=== PATIENT | male | born 1975 | race Caucasian/White ===

== ENCOUNTER 2020-03-17 14:09 | Emergency (ER) | payer MEDICAID ==
[2020-03-17] MEDS ORDERED: Aspirin 81 MG Tab.Chew PO ONE (14:27)
[2020-03-17] MEDS ORDERED: Sodium Chloride 0.9% 10 ML Syringe FLUSH PRN (14:27)
--- NOTE | 2020-03-17 14:31 | EDM.PDOC ---
ED HPI GENERAL MEDICAL PROBLEM - General Chief Complaint: Chest Pain Stated Complaint: HEART PAIN Time Seen by Provider: 03/17/20 14:23 Source of Information: Reports: Patient, Family, RN Notes Reviewed History Limitations: Reports: No Limitations - History of Present Illness INITIAL COMMENTS - FREE TEXT/NARRATIVE: 45-year-old gentleman presents emergency department a complaint of chest pain, states chest pain started about 6 hours prior he does have a cardiac history history of congestive heart failure with reduced ejection fraction thought to be related to IV drug use. He has never had any stenting he rates this pain 3 or 4 out of 10 does feel short of breath has been diaphoretic at times pain does radiate down his arm no nausea or vomiting. Chest Pain Score (Numeric/FACES): 3 - Related Data Allergies Allergy/AdvReac Type Severity Reaction Status Date / Time acetaminophen [From Vicodin] Allergy Rash Verified 03/17/20 14:20 hydrocodone [From Vicodin] Allergy Rash Verified 03/17/20 14:20 Home Meds: Home Meds Furosemide [Lasix] 20 mg PO DAILY 03/17/20 [History] Rosuvastatin [Crestor] 20 mg PO DAILY 03/17/20 [History] Spironolactone [Aldactone] 25 mg PO DAILY 03/17/20 [History] levoFLOXacin [Levaquin] 750 mg PO DAILY 03/17/20 [History] Past Medical History Cardiovascular History: Reports: Heart Failure, High Cholesterol, Hypertension - Infectious Disease History Infectious Disease History: Reports: Other (See Below) (Chronic wound left leg) Social & Family History - Recreational Drug Use Recreational Drug Use: No Recreational Drug Type: Reports: Other (see below) (Remote history of IV drug use complications of CHF) ED ROS GENERAL - Review of Systems Review Of Systems: See Below Constitutional: Reports: Diaphoresis HEENT: Reports: No Symptoms Respiratory: Reports: Shortness of Breath Cardiovascular: Reports: Chest Pain GI/Abdominal: Denies: Nausea, Vomiting ED EXAM, GENERAL - Physical Exam Exam: See Below Exam Limited By: No Limitations General Appearance: Alert, Mild Distress Head: Atraumatic, Normocephalic Neck: Normal Inspection, Supple, Non-Tender, Full Range of Motion Respiratory/Chest: No Respiratory Distress Cardiovascular: Regular Rate, Rhythm, No Murmur GI/Abdominal: Soft, Non-Tender Extremities: Normal Range of Motion, No Pedal Edema #1 Interpretation EKG Date: 03/17/20 Rhythm: NSR [place]: Normal P-Wave: Present QRS: Normal ST-T: Normal QT: Normal Comparison: NA - No Prior EKG Course - Vital Signs Last Recorded V/S: Last Vital Signs Temp 97.5 F 03/17/20 14:16 Pulse 89 03/17/20 15:17 Resp 11 L 03/17/20 15:17 BP 144/98 H 03/17/20 15:17 Pulse Ox 95 03/17/20 15:17 - Orders/Labs/Meds Orders: Active Orders 24 hr Category Date Time Status Cardiac Monitoring [RC] .As Directed Care 03/17/20 14:27 Active EKG Documentation Completion [RC] ASDIRECTED Care 03/17/20 14:28 Active Peripheral IV Care [RC] . DIRECTED Care 03/17/20 14:28 Active Nitroglycerin [Nitrostat] Med 03/17/20 14:27 Active 0.4 mg SL Q5M PRN Sodium Chloride 0.9% [Saline Flush] Med 03/17/20 14:27 Active 10 ml FLUSH ASDIRECTED PRN Peripheral IV Insertion Adult [OM.PC] Stat Oth 03/17/20 14:27 Ordered Saline Lock Insert [OM.PC] Stat Oth 03/17/20 14:27 Ordered EKG 12 Lead [EK] Stat Ther 03/17/20 14:27 Ordered Medication Orders Nitroglycerin (Nitrostat) 0.4 mg SL Q5M PRN PRN Reason: Chest Pain Stop: 03/18/20 14:28 Last Admin: 03/17/20 14:53 Dose: 0.4 mg Documented by: [id number] Admin: 03/17/20 14:36 Dose: 0.4 mg Documented by: [email or web address] Sodium Chloride (Saline Flush) 10 ml FLUSH ASDIRECTED PRN PRN Reason: Keep Vein Open Last Admin: 03/17/20 14:32 Dose: 10 ml Documented by: [id number] Labs: Laboratory Tests 03/17/20 03/17/20 03/17/20 Range/Units 14:35 14:35 16:30 WBC 9.9 (4.5-11.0) K/uL RBC 4.64 (4.30-5.90) M/uL Hgb 12.8 (12.0-15.0) g/dL Hct 38.2 L (40.0-54.0) % MCV 82 (80-98) fL MCH 28 (27-31) pg MCHC 34 (32-36) % Plt Count 216 (150-400) K/uL Neut % (Auto) 64 (36-66) % Lymph % (Auto) 22 L (24-44) % Harvey % (Auto) 11 H (2-6) % Eos % (Auto) 3 (2-4) % Baso % (Auto) 1 (0-1) % Sodium 139 L (140-148) mmol/L Potassium 3.8 (3.6-5.2) mmol/L Chloride 103 (100-108) mmol/L Carbon Dioxide 27 (21-32) mmol/L Anion Gap 12.8 (5.0-14.0) mmol/L BUN 21 H (7-18) mg/dL Creatinine 1.4 H (0.8-1.3) mg/dL Est Cr Clr Drug Dosing 63.61 mL/min Estimated GFR (MDRD) 55 L (>60) Glucose 194 H (74-106) mg/dL Calcium 9.0 (8.5-10.1) mg/dL Total Bilirubin 0.6 (0.2-1.0) mg/dL AST 17 (15-37) U/L ALT 30 (12-78) U/L Alkaline Phosphatase 104 (46-116) U/L Troponin I 0.027 0.028 (0.000-0.056) ng/mL Total Protein 6.6 (6.4-8.2) g/dL Albumin 3.5 (3.4-5.0) g/dL Globulin 3.1 (2.3-3.5) g/dL Albumin/Globulin Ratio 1.1 L (1.2-2.2) Meds: Medications Generic Name Dose Route Start Last Admin Trade Name Freq PRN Reason Stop Dose Admin Nitroglycerin 0.4 mg 03/17/20 14:27 03/17/20 14:53 Nitrostat SL 03/18/20 14:28 0.4 mg Q5M PRN Administration Chest Pain Sodium Chloride 10 ml 03/17/20 14:27 03/17/20 14:32 Saline Flush FLUSH 10 ml ASDIRECTED PRN Administration Keep Vein Open Discontinued Medications Generic Name Dose Route Start Last Admin Trade Name Freq PRN Reason Stop Dose Admin Aspirin 324 mg 03/17/20 14:27 03/17/20 14:34 Aspirin PO 03/17/20 14:28 324 mg ONETIME ONE Administration Departure - Departure Time of Disposition: 17:09 Disposition: Home, Self-Care 01 Condition: Fair Clinical Impression: Chest pain Qualifiers: Chest pain type: unspecified Qualified Code(s): R07.9 - Chest pain, unspecified Instructions: Nonspecific Chest Pain, Adult Referrals: PCP,None [Primary Care Provider] - Forms: ED Department Discharge Additional Instructions: Outpatient surgery center will call you for an appointment time for your stress test, please follow-up with your primary care after your stress test call return to the emergency department worsening of symptoms Sepsis Event Note (ED) - Evaluation Sepsis Screening Result: No Definite Risk - Focused Exam Vital Signs: Vital Signs Temp Pulse Resp BP BP Pulse Ox 03/17/20 15:17 89 11 L 144/98 H 95 03/17/20 15:05 88 142/92 H 03/17/20 14:53 156/99 H 03/17/20 14:36 175/111 H 03/17/20 14:34 89 17 175/111 H 95 03/17/20 14:16 97.5 F 86 16 190/115 H 99 - My Orders Last 24 Hours: My Active Orders 03/17/20 14:27 Cardiac Monitoring [RC] .As Directed Nitroglycerin [Nitrostat] 0.4 mg SL Q5M PRN Sodium Chloride 0.9% [Saline Flush] 10 ml FLUSH ASDIRECTED PRN Peripheral IV Insertion Adult [OM.PC] Stat Saline Lock Insert [OM.PC] Stat EKG 12 Lead [EK] Stat 03/17/20 14:28 EKG Documentation Completion [RC] ASDIRECTED Peripheral IV Care [RC] . DIRECTED - Assessment/Plan Last 24 Hours: My Active Orders 03/17/20 14:27 Cardiac Monitoring [RC] .As Directed Nitroglycerin [Nitrostat] 0.4 mg SL Q5M PRN Sodium Chloride 0.9% [Saline Flush] 10 ml FLUSH ASDIRECTED PRN Peripheral IV Insertion Adult [OM.PC] Stat Saline Lock Insert [OM.PC] Stat EKG 12 Lead [EK] Stat 03/17/20 14:28 EKG Documentation Completion [RC] ASDIRECTED Peripheral IV Care [RC] . DIRECTED Plan: Assessment Acuity = acute Site and laterality = chest pain Etiology = unknown Manifestations = none Location of injury = Home Lab values = CBC unremarkable creatinine elevated 1.4 consistent chronic renal failure stage T3a troponin 0 0.027 and 2 hours later 0.0284 troponin is within the normal range EKG demonstrates sinus rhythm no ST elevations or depressions,, Chest x-ray reveals mild cardiomegaly per radiology Plan I did review lab EKG results with him plan is to set him up for stress test we will try and get that done this is this week he will follow-up with his primary care provider he did receive 2 doses of nitro in the emergency department where he remained pain-free as well as aspirin return to the emergency department with worsening of symptoms This note was dictated using [employer] voice recognition software please call with any questions on syntax or grammar.
[2020-03-17] MEDS: Nitroglycerin 0.4 MG Tab.SL SL PRN ×2 (14:36→14:53)
--- NOTE | 2020-03-17 15:18 | CR ---
CHEST: Portable 03/17/2020 at 2:46 PM CLINICAL HISTORY:Chest pain COMPARISON:2011 FINDINGS: The heart size is mildly enlarged. The pulmonary vascularity and hilar structures are normal. No infiltrate effusion or pneumothorax is seen. IMPRESSION: Mild cardiomegaly No acute cardiopulmonary process.
== END 2020-03-17 17:37 | disposition home or self-care (01) ==
LOC: JP.ED 14:09
DX: R07.9 Chest pain, unspecified (principal); E78.00 Pure hypercholesterolemia, unspecified; I11.0 Hypertensive heart disease with heart failure; I50.9 Heart failure, unspecified; Z88.6 Allergy status to analgesic agent; Z88.5 Allergy status to narcotic agent; Z79.899 Other long term (current) drug therapy
CPT/HCPCS: 36415; 71045; 80053; 84484; 85025; 93005; 99284; 99285; A9270

== ENCOUNTER 2020-04-06 03:08 | Emergency (ER) | payer MEDICAID ==
[2020-04-06] MEDS ORDERED: Bacitracin Oint 1 GM U/D Packet TOP ONE (03:16)
--- NOTE | 2020-04-06 03:30 | EDM.PDOC ---
ED HPI GENERAL MEDICAL PROBLEM - General Chief Complaint: Laceration Stated Complaint: CUT LEFT LEG Time Seen by Provider: 04/06/20 03:15 Source of Information: Reports: Patient History Limitations: Reports: No Limitations - History of Present Illness INITIAL COMMENTS - FREE TEXT/NARRATIVE: Mello is a 45-year-old male who was in his usual state of health when he was trying to adjust a fan on a wood-burning stove and the fan fell over striking him in the anterior left cortez causing a superficial laceration. The patient has a skin graft over this area from a previous surgery for an osteosarcoma. Last week he had a toolbox fall and take a large chunk of skin off and an avulsion laceration that is currently healing. The fan blade struck just above this healing lesion causing a small 1 x 1.3 cm superficial laceration removing the epidermis and exposing dermis. Unfortunately, there is no flap remaining to repair. There is no active bleeding at this time. Patient has a past medical history significant for diabetes, coronary disease status post NH, congestive heart failure, and is status post surgical removal of an osteosarcoma with skin graft and sourav placement in his left lower leg. - Related Data Allergies Allergy/AdvReac Type Severity Reaction Status Date / Time acetaminophen [From Vicodin] Allergy Rash Verified 04/06/20 03:16 hydrocodone [From Vicodin] Allergy Rash Verified 04/06/20 03:16 Home Meds: Home Meds Furosemide [Lasix] 20 mg PO DAILY 03/17/20 [History] Rosuvastatin [Crestor] 20 mg PO DAILY 03/17/20 [History] Spironolactone [Aldactone] 25 mg PO DAILY 03/17/20 [History] Labetalol [Normodyne] 100 mg PO BID #60 tab 04/06/20 [Rx] Past Medical History Cardiovascular History: Reports: Heart Failure, High Cholesterol, Hypertension, NH Respiratory History: Reports: PE Musculoskeletal History: Reports: Other (See Below) Other Musculoskeletal History: broke lots of bones on left Psychiatric History: Reports: Addiction Endocrine/Metabolic History: Reports: Diabetes, Type II Hematologic History: Reports: Other (See Below) Other Hematologic History: blood clots in left calf Oncologic (Cancer) History: Reports: Other (See Below) Other Oncologic History: sarcoma - Infectious Disease History Infectious Disease History: Reports: None, Other (See Below) - Past Surgical History Head Surgeries/Procedures: Reports: None Cardiovascular Surgical History: Reports: None Respiratory Surgical History: Reports: None Endocrine Surgical History: Reports: None Oncologic Surgical History: Reports: None Dermatological Surgical History: Reports: None Social & Family History - Caffeine Use Caffeine Use: Reports: None - Recreational Drug Use Recreational Drug Use: No ED ROS GENERAL - Review of Systems Review Of Systems: See Below Constitutional: Reports: No Symptoms HEENT: Reports: No Symptoms Respiratory: Reports: No Symptoms Cardiovascular: Reports: No Symptoms Endocrine: Reports: No Symptoms GI/Abdominal: Reports: No Symptoms : Reports: No Symptoms Musculoskeletal: Reports: No Symptoms Skin: Reports: Wound (There is a superficial avulsion wound on the anterior left lower leg that is just superior to a larger, deeper healing wound. Is no active bleeding at this time.), Other (Well-healed skin grafts in the left lower leg) Neurological: Reports: Numbness (Chronic numbness in the left lower leg since osteosarcoma surgery.) Psychiatric: Reports: No Symptoms Hematologic/Lymphatic: Reports: No Symptoms Immunologic: Reports: No Symptoms ED EXAM, SKIN/RASH Exam: See Below Exam Limited By: No Limitations General Appearance: Alert, No Apparent Distress Respiratory/Chest: No Respiratory Distress, No Accessory Muscle Use Cardiovascular: Normal Peripheral Pulses, Regular Rate, Rhythm, No Edema Peripheral Pulses: 2+: Posterior Tibial (L), Posterior Tibial (R) Extremities: Normal Range of Motion Neurological: Alert, Oriented, Normal Cognition, No Motor/Sensory Deficits Skin: Wound/Incision (There is a large 3 cm x 4.4 cm healing wound on the anterior left leg one quarter the way down from the knee. This is from a previous injury with a toolbox last week. There is a new 1 cm x 1.5 cm superficial avulsion laceration just superior to this that has remove the epidermis but I have left the dermal layer intact. There is nothing to repair as the epidermis is missing. No active bleeding at this time.) ED SKIN PROCEDURES - Laceration/Wound Repair Left Middle Leg Appearance: Superficial, Clean Distal NVT: Neuro & Vascular Intact Skin Prep: Other (Water) Exploration/Debridement/Repair: Wound Explored, In a Bloodless Field Closed with: Dermabond Lac/Wound length In cm: 1.5 (1.5 cm by 1cm) Tetanus Status Addressed: Yes Complications: No Course - Vital Signs Last Recorded V/S: Last Vital Signs Temp 97.4 C H 04/06/20 03:26 Pulse 97 04/06/20 03:26 Resp 19 04/06/20 03:26 BP 176/123 H 04/06/20 03:29 Pulse Ox 97 04/06/20 03:26 - Orders/Labs/Meds Orders: Active Orders 24 hr Category Date Time Status Vaccines to be Administered [RC] PER UNIT ROUTINE Care 04/06/20 03:38 Ordered Meds: Medications Discontinued Medications Generic Name Dose Route Start Last Admin Trade Name Marily PRN Reason Stop Dose Admin Bacitracin 1 dose 04/06/20 03:16 Bacitracin Oint 1 Gm TOP 04/06/20 03:17 ONETIME ONE Diphtheria/Tetanus/Acell Pertussis 0.5 ml 04/06/20 03:37 Boostrix IM 04/06/20 03:38 .ONCE ONE Labetalol HCl 100 mg 04/06/20 03:37 Normodyne PO 04/06/20 03:38 ONETIME ONE Lidocaine HCl 5 ml 04/06/20 03:16 Xylocaine-Mpf 1% INJECT 04/06/20 03:17 ONETIME ONE - Re-Assessments/Exams Free Text/Narrative Re-Assessment/Exam: 04/06/20 03:33 the patient is noted to be quite hypertensive with a pressure of 176/123. The patient is not sure what medications he is on, nor is he certain when he had last had his tetanus booster. We reviewed his [facility] records and there are medications that he is reportedly on that he has not been taking including Eliquis, Lucero lactone, and carvedilol. His last tetanus was over 10 years ago so we will booster that today. I am going to give him a single dose of labetalol 100 mg with a prescription for labetalol 100 mg twice daily and have him follow-up with his primary care provider early this week Departure - Departure Time of Disposition: 03:55 Disposition: Home, Self-Care 01 Condition: Good Clinical Impression: Laceration of left lower leg Qualifiers: Encounter type: initial encounter Qualified Code(s): S81.812A - Laceration without foreign body, left lower leg, initial encounter Hypertension Qualifiers: Hypertension type: essential hypertension Qualified Code(s): I10 - Essential (primary) hypertension - Discharge Information *PRESCRIPTION DRUG MONITORING PROGRAM REVIEWED*: Not Applicable *COPY OF PRESCRIPTION DRUG MONITORING REPORT IN PATIENT INESSA: Not Applicable Prescriptions: Labetalol [Normodyne] 100 mg PO BID #60 tab Referrals: PCP,None [Primary Care Provider] - Forms: ED Department Discharge Care Plan Goals: Blood pressure is exceedingly high today. I am adding a blood pressure medicine called labetalol to your medications. We have given you the first dose in the emergency room and I have a printed prescription for you for this medicine twice daily. In addition, you should follow-up with Emmanuel Perez early this week to discuss whether you should be on Eliquis and whether additional medicines are required to keep your blood pressure under control. We reviewed your records including those from [facility] and your last tetanus was in 1995 so we will booster this today. In addition I have sent a prescription out to the [employer] [facility] [employer] machine for an antibiotic cephalexin that you can take to prevent infection in the leg given that you have diabetes and previous surgery on this leg. Sepsis Event Note (ED) - Focused Exam Vital Signs: Vital Signs Temp Pulse Resp BP Pulse Ox 04/06/20 03:29 176/123 H 04/06/20 03:26 97.4 C H 97 19 198/135 H 97 - Problem List & Annotations (1) Laceration of left lower leg SNOMED Code(s): 30577491161782183 Code(s): S81.812A - LACERATION WITHOUT FOREIGN BODY, LEFT LOWER LEG, INIT ENCNTR Status: Acute Priority: Medium Current Visit: Yes Qualifiers: Encounter type: initial encounter Qualified Code(s): S81.812A - Laceration without foreign body, left lower leg, initial encounter (2) HTN (hypertension) SNOMED Code(s): 63534863 Code(s): I10 - ESSENTIAL (PRIMARY) HYPERTENSION Status: Chronic Priority: Medium Current Visit: Yes Qualifiers: Hypertension type: essential hypertension Qualified Code(s): I10 - Essential (primary) hypertension - Problem List Review Problem List Initiated/Reviewed/Updated: Yes - My Orders Last 24 Hours: My Active Orders 04/06/20 03:38 Vaccines to be Administered [RC] PER UNIT ROUTINE - Assessment/Plan Last 24 Hours: My Active Orders 04/06/20 03:38 Vaccines to be Administered [RC] PER UNIT ROUTINE
[2020-04-06] MEDS ORDERED: Labetalol 100 MG Tab PO ONE (03:37)
[2020-04-06] MEDS ORDERED: Diphtheria,Pertussis(Acell),Tetanus Vaccine 0.5 ML Syringe IM ONE (03:37)
== END 2020-04-06 04:01 | disposition home or self-care (01) ==
LOC: JP.ED 03:08
DX: S81.812A Laceration without foreign body, left lower leg, initial encounter (principal); I11.0 Hypertensive heart disease with heart failure; I50.9 Heart failure, unspecified; E78.00 Pure hypercholesterolemia, unspecified; I25.2 Old myocardial infarction; E11.9 Type 2 diabetes mellitus without complications; Z88.6 Allergy status to analgesic agent; Z88.5 Allergy status to narcotic agent; Z79.899 Other long term (current) drug therapy; Z23 Encounter for immunization; W22.8XXA Striking against or struck by other objects, initial encounter
CPT/HCPCS: 12001; 90471; 90715; 99282; 99284; A9270

== ENCOUNTER 2020-05-04 02:59 | Emergency (ER) | payer MEDICAID ==
--- NOTE | 2020-05-04 03:48 | EDM.PDOC ---
ED HPI GENERAL MEDICAL PROBLEM - General Chief Complaint: Respiratory Problem Stated Complaint: CHEST DISCOMFORT Time Seen by Provider: 05/04/20 03:34 Source of Information: Reports: Patient, Old Records History Limitations: Reports: No Limitations - History of Present Illness INITIAL COMMENTS - FREE TEXT/NARRATIVE: Mello is a 45-year-old male presenting to the ED with his mother for evaluation of acute onset of nasal congestion, headache, ear pain, sore throat, and cough. Patient symptoms started about 5 hours ago. Upon evaluation in the ED, he is noted to still be quite hypertensive with a blood pressure of 173/109. When I saw him earlier this month we started him on labetalol 100 mg twice daily for hypertension given his history of a previous GA and congestive heart failure. The patient failed to fill that prescription or started and remains quite hypertensive. Patient's mother is defensive stating that she had no idea that he had that prescription or she would have made sure it had been filled. The patient is unaware of any fever. He apparently ran out of his furosemide a week ago. Anterior Chest Pain Score (Numeric/FACES): 4 - Related Data Allergies Allergy/AdvReac Type Severity Reaction Status Date / Time acetaminophen [From Vicodin] Allergy Rash Verified 05/04/20 03:14 hydrocodone [From Vicodin] Allergy Rash Verified 05/04/20 03:14 Home Meds: Home Meds Furosemide [Lasix] 20 mg PO DAILY 03/17/20 [History] Rosuvastatin [Crestor] 20 mg PO DAILY 03/17/20 [History] Spironolactone [Aldactone] 25 mg PO DAILY 03/17/20 [History] Labetalol [Normodyne] 100 mg PO BID 30 Days #60 tab 05/04/20 [Rx] Magnesium Oxide [Magnesium] 400 mg PO DAILY 05/04/20 [History] Past Medical History Cardiovascular History: Reports: Blood Clots/VTE/DVT, Heart Failure, High Cholesterol, Hypertension, GA Respiratory History: Reports: PE Genitourinary History: Reports: Pyelonephritis Musculoskeletal History: Reports: Other (See Below) Other Musculoskeletal History: broke lots of bones on left Psychiatric History: Reports: Addiction 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 Endocrine/Metabolic History: Reports: Diabetes, Type II, Obesity/BMI 30+ Hematologic History: Reports: Iron Deficiency Other Hematologic History: blood clots in left calf Oncologic (Cancer) History: Reports: Other (See Below) Other Oncologic History: sarcoma - Infectious Disease History Infectious Disease History: Reports: Chicken Pox, Hepatitis C - Past Surgical History HEENT Surgical History: Reports: Tonsillectomy Cardiovascular Surgical History: Reports: None Endocrine Surgical History: Reports: None Oncologic Surgical History: Reports: None, Biopsy of Breast Social & Family History - Tobacco Use Tobacco Use Status *Q: Light Tobacco User Years of Tobacco use: 10 Packs/Tins Daily: 0 Used Tobacco, but Quit: No Second Hand Smoke Exposure: No - Caffeine Use Caffeine Use: Reports: Soda - Recreational Drug Use Recreational Drug Use: Yes Drug Use in Last 12 Months: Yes Recreational Drug Type: Reports: Methamphetamine Recreational Drug Use Frequency: Not Used In Over 5 Months ED ROS GENERAL - Review of Systems Review Of Systems: See Below Constitutional: Reports: No Symptoms HEENT: Reports: Ear Pain, Rhinitis, Sinus Problem, Throat Pain Respiratory: Reports: Shortness of Breath, Cough Cardiovascular: Reports: No Symptoms Endocrine: Reports: No Symptoms GI/Abdominal: Reports: No Symptoms : Reports: No Symptoms Musculoskeletal: Reports: No Symptoms Skin: Reports: No Symptoms Neurological: Reports: Headache Psychiatric: Reports: No Symptoms Hematologic/Lymphatic: Reports: No Symptoms Immunologic: Reports: No Symptoms ED EXAM, GENERAL - Physical Exam Exam: See Below Exam Limited By: No Limitations General Appearance: Alert, Anxious, Mild Distress Eye Exam: Bilateral Eye: EOMI, PERRL Ears: Normal External Exam, Normal Canal, Hearing Grossly Normal, Normal TMs Nose: Nasal Swelling, Nasal Drainage, Other (Pain with percussion over the maxillary and frontal sinuses bilaterally.) Throat/Mouth: Normal Inspection, Normal Lips, Normal Oropharynx, Normal Voice, No Airway Compromise Head: Atraumatic, Normocephalic Neck: Normal Inspection, Supple, Non-Tender, Full Range of Motion. No: Lymphadenopathy (R), Lymphadenopathy (L) Respiratory/Chest: No Respiratory Distress, Normal Breath Sounds, No Accessory Muscle Use Cardiovascular: Normal Peripheral Pulses, Regular Rate, Rhythm, No Edema, No JVD, No Murmur Peripheral Pulses: 2+: Radial (L), Radial (R) GI/Abdominal: Normal Bowel Sounds, Soft, Non-Tender Back Exam: Normal Inspection, Full Range of Motion Extremities: Normal Inspection Neurological: Alert, Oriented, No Motor/Sensory Deficits Psychiatric: Anxious Skin Exam: Warm, Dry Lymphatic: No Adenopathy Course - Vital Signs Last Recorded V/S: Last Vital Signs Temp 36.6 C 05/04/20 03:11 Pulse 87 05/04/20 03:11 Resp 20 05/04/20 03:11 BP 174/109 H 05/04/20 03:11 Pulse Ox 98 05/04/20 03:11 - Orders/Labs/Meds Labs: Laboratory Tests 05/04/20 Range/Units 03:40 WBC 11.0 (4.5-11.0) K/uL RBC 4.96 (4.30-5.90) M/uL Hgb 14.1 (12.0-15.0) g/dL Hct 40.7 (40.0-54.0) % MCV 82 (80-98) fL MCH 28 (27-31) pg MCHC 35 (32-36) % Plt Count 202 (150-400) K/uL Neut % (Auto) 68 H (36-66) % Lymph % (Auto) 19 L (24-44) % Lawrence % (Auto) 10 H (2-6) % Eos % (Auto) 3 (2-4) % Baso % (Auto) 0 (0-1) % - Re-Assessments/Exams Free Text/Narrative Re-Assessment/Exam: 05/04/20 04:07 I reviewed the patient's labs showing a mild leukocytosis at 11.0 with a normal differential. This is likely an acute pansinusitis given the tenderness to percussion over the frontal and maxillary sinuses. We will put the patient on azithromycin Z-Sandor to treat this. The patient is encouraged to get a decongestant to help reduce the inflammation and allow the sinuses to drain. In addition, because the patient lost his prescription for his labetalol from the 02/26/2020, I have reprinted this for him. He needs to follow-up with his primary care provider as soon as possible to continue to work to get his blood pressure under control especially given his history of heart failure and acute GA. This was discussed with the patient and his mother. At this time, the patient is suitable for discharge home. Departure - Departure Time of Disposition: 04:09 Disposition: Home, Self-Care 01 Clinical Impression: Essential (primary) hypertension Acute pansinusitis, unspecified Qualifiers: Recurrence: not specified as recurrent Qualified Code(s): J01.40 - Acute pansinusitis, unspecified - Discharge Information Prescriptions: Labetalol [Normodyne] 100 mg PO BID 30 Days #60 tab Instructions: Sinusitis, Adult, [id number], Hypertension, Adult, [id number] Referrals: PCP,None [Primary Care Provider] - Forms: ED Department Discharge Care Plan Goals: Make an appointment and follow-up with Emmanuel Perez within the next week for recheck of your blood pressure. Please take the prescription to the local pharmacy and fill it as soon as possible to start the labetalol. I would recommend getting a decongestant like Sudafed or Mucinex to decrease the swelling in your nasal passages and allow the sinuses to drain. We have also started you on azithromycin an antibiotic to help clear up the sinus infection. Sepsis Event Note (ED) - Evaluation Sepsis Screening Result: No Definite Risk - Focused Exam Vital Signs: Vital Signs Temp Pulse Resp BP Pulse Ox 05/04/20 03:11 36.6 C 87 20 174/109 H 98 - Problem List & Annotations (1) Acute pansinusitis, unspecified SNOMED Code(s): 5462692 Code(s): J01.40 - ACUTE PANSINUSITIS, UNSPECIFIED Status: Acute Priority: Medium Current Visit: Yes Qualifiers: Recurrence: not specified as recurrent Qualified Code(s): J01.40 - Acute pansinusitis, unspecified (2) Essential (primary) hypertension SNOMED Code(s): 30925555 Code(s): I10 - ESSENTIAL (PRIMARY) HYPERTENSION Status: Acute Priority: High Current Visit: Yes - Problem List Review Problem List Initiated/Reviewed/Updated: Yes
== END 2020-05-04 04:27 | disposition home or self-care (01) ==
LOC: JP.ED 02:59
DX: J01.40 Acute pansinusitis, unspecified (principal); I10 Essential (primary) hypertension; D72.829 Elevated white blood cell count, unspecified; E78.00 Pure hypercholesterolemia, unspecified; I11.0 Hypertensive heart disease with heart failure; I50.9 Heart failure, unspecified; E11.9 Type 2 diabetes mellitus without complications; E66.9 Obesity, unspecified; Z88.5 Allergy status to narcotic agent; Z72.0 Tobacco use; Z79.899 Other long term (current) drug therapy; Z68.36 Body mass index [BMI] 36.0-36.9, adult
CPT/HCPCS: 36415; 85025; 99283; 99284

== ENCOUNTER 2020-07-30 20:03 | Inpatient (IN) | payer SELFPAY ==
--- NOTE | 2020-07-30 20:58 | EDM.PDOC ---
ED HPI GENERAL MEDICAL PROBLEM - General Chief Complaint: Skin Complaint Stated Complaint: LEG INJURY Time Seen by Provider: 07/30/20 20:27 Source of Information: Reports: Patient, Old Records (I reviewed the clinic records from [facility].) History Limitations: Reports: No Limitations - History of Present Illness INITIAL COMMENTS - FREE TEXT/NARRATIVE: Mello is a 45-year-old male with a history of diabetes and a chronic leg wound on left anterior lower leg who presents with worsening leg pain and purulent drainage from the wound. Patient denies any fever. He does work outdoors quite a bit and the wound has been open for quite some time. He says he has been managed by Emmanuel Perez in the clinic, however, it does not appear that he has seen Emmanuel in the last several months with the last office visit being on 06/11/2020 when he was started on insulin for uncontrolled diabetes mellitus with the hemoglobin A1c of 12.5. The patient states that he has been compliant with taking his medications. Unsure whether or not he does glucometer he as I asked him how his sugars have been running in did not get a response. He denies any other symptoms at this time. The leg wound measures 3.3 x 2.0 cm. Patient reports the wound has been open for over a year. There is evidence of previous skin grafting on this area from his initial injury years ago. Left Lower Leg Pain Score (Numeric/FACES): 8 - Related Data Allergies Allergy/AdvReac Type Severity Reaction Status Date / Time acetaminophen [From Vicodin] Allergy Rash Verified 07/30/20 20:30 hydrocodone [From Vicodin] Allergy Rash Verified 07/30/20 20:30 Home Meds: Home Meds Furosemide [Lasix] 20 mg PO WITHLUNCH 03/17/20 [History] Rosuvastatin [Crestor] 40 mg PO WITHLUNCH 03/17/20 [History] Spironolactone [Aldactone] 25 mg PO DAILY 03/17/20 [History] Magnesium Oxide [Magnesium] 400 mg PO WITHLUNCH 05/04/20 [History] Famotidine 40 mg PO BEDTIME 07/30/20 [History] Insulin Aspart [NovoLOG] 10 units SQ TIDAC 07/30/20 [History] Insulin Glarg,Human.Rec.Analog [Lantus Solostar] 30 units SQ BEDTIME 07/30/20 [History] Rivaroxaban [Xarelto] 20 mg PO WITHLUNCH 07/30/20 [History] carvediloL [Coreg] 25 mg PO BID 07/30/20 [History] Past Medical History HEENT History: Reports: None Cardiovascular History: Reports: Blood Clots/VTE/DVT, Heart Failure, High Cholesterol, Hypertension, VT Respiratory History: Reports: PE Genitourinary History: Reports: Pyelonephritis Musculoskeletal History: Reports: Other (See Below) Other Musculoskeletal History: broke lots of bones on left Psychiatric History: Reports: Addiction 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 Endocrine/Metabolic History: Reports: Diabetes, Type II, Obesity/BMI 30+ Hematologic History: Reports: Iron Deficiency Other Hematologic History: blood clots in left calf Oncologic (Cancer) History: Reports: Other (See Below) Other Oncologic History: sarcoma - Infectious Disease History Infectious Disease History: Reports: Chicken Pox, Hepatitis C - Past Surgical History Head Surgeries/Procedures: Reports: None HEENT Surgical History: Reports: Tonsillectomy Cardiovascular Surgical History: Reports: None Respiratory Surgical History: Reports: None Endocrine Surgical History: Reports: None Musculoskeletal Surgical History: Reports: None Oncologic Surgical History: Reports: None, Biopsy of Breast Dermatological Surgical History: Reports: None Social & Family History - Tobacco Use Tobacco Use Status *Q: Never Tobacco User Second Hand Smoke Exposure: No - Caffeine Use Caffeine Use: Reports: Coffee, Soda, Tea - Recreational Drug Use Recreational Drug Use: No ED ROS GENERAL - Review of Systems Review Of Systems: See Below Constitutional: Reports: No Symptoms HEENT: Reports: No Symptoms Respiratory: Reports: No Symptoms Cardiovascular: Reports: No Symptoms Endocrine: Reports: No Symptoms GI/Abdominal: Reports: No Symptoms : Reports: No Symptoms Musculoskeletal: Reports: Leg Pain (Left leg pain) Skin: Reports: Wound (Chronic ulceration wound on the anterior lower left leg) Neurological: Reports: No Symptoms Psychiatric: Reports: No Symptoms Hematologic/Lymphatic: Reports: No Symptoms Immunologic: Reports: No Symptoms ED EXAM, SKIN/RASH Exam: See Below Exam Limited By: No Limitations General Appearance: Alert, No Apparent Distress Head: Atraumatic, Normocephalic Neck: Normal Inspection, Supple, Non-Tender, Full Range of Motion Respiratory/Chest: No Respiratory Distress, Lungs Clear, Normal Breath Sounds Cardiovascular: Normal Peripheral Pulses, Regular Rate, Rhythm, No Edema, No Murmur GI/Abdominal: Normal Bowel Sounds, Soft, Non-Tender Extremities: Normal Range of Motion, Leg Pain (Left lower leg) Neurological: Alert, Oriented, Normal Cognition, No Motor/Sensory Deficits Psychiatric: Normal Affect Skin: Erythema (10 x 18 cm area of erythema around this chronic granulated ulceration on the anterior left leg.), Wound/Incision (Chronic ulceration on the anterior lower leg measuring 3.3 x 2.0 cm. Granulation tissue at the base with some scabbing at the lower border. I do not appreciate any suppurative discharge.) Location, Skin: Lower Extremity, Left Associated features: Warmth, Tenderness, Swelling, Induration, Inflammation Lymphatic: No Adenopathy Course - Vital Signs Last Recorded V/S: Last Vital Signs Temp 35.3 C L 07/30/20 20:27 Pulse 82 07/30/20 20:27 Resp 16 07/30/20 20:27 BP 155/91 H 07/30/20 20:50 Pulse Ox 97 07/30/20 20:27 - Orders/Labs/Meds Orders: Active Orders 24 hr Category Date Time Status KETONES,BLOOD [CHEM] Stat Lab 07/30/20 21:52 Ordered UA W/MICROSCOPIC [URIN] Stat Lab 07/30/20 21:56 Ordered Dextrose 50% in Water Med 07/30/20 21:53 Active 50 ml IVPUSH ASDIRECTED PRN Glucagon,Human Recombinant [GlucaGen] Med 07/30/20 21:53 Active 1 mg IM ASDIRECTED PRN Sodium Chloride 0.9% [Normal Saline] 1,000 ml Med 07/30/20 22:00 Active IV ASDIRECTED Sodium Chloride 0.9% [Saline Flush] Med 07/30/20 21:53 Active 10 ml FLUSH ASDIRECTED PRN Saline Lock Insert [OM.PC] Routine Oth 07/30/20 21:53 Ordered Medication Orders Dextrose/Water (50% Dextrose In Water 50 Ml Syringe) 50 ml IVPUSH ASDIRECTED PRN PRN Reason: Hypoglycemia Glucagon (Glucagon,Human Recombinant 1 Mg Vial) 1 mg IM ASDIRECTED PRN PRN Reason: Hypoglycemia Sodium Chloride (Normal Saline) 1,000 mls @ 999 mls/hr IV ASDIRECTED [facility] Last Admin: 07/30/20 22:07 Dose: 999 mls/hr Documented by: [email or web address] Sodium Chloride (Sodium Chloride 0.9% 10 Ml Syringe) 10 ml FLUSH ASDIRECTED PRN PRN Reason: Keep Vein Open Labs: Laboratory Tests 07/30/20 07/30/20 07/30/20 Range/Units 20:38 20:38 20:38 WBC 6.3 (4.5-11.0) K/uL RBC 4.57 (4.30-5.90) M/uL Hgb 13.3 (12.0-15.0) g/dL Hct 36.4 L (40.0-54.0) % MCV 80 (80-98) fL MCH 29 (27-31) pg MCHC 37 H (32-36) % Plt Count 176 (150-400) K/uL Neut % (Auto) 60.4 (36-66) % Lymph % (Auto) 26.9 (24-44) % Gosper % (Auto) 10.0 H (2-6) % Eos % (Auto) 1.9 L (2-4) % Baso % (Auto) 0.8 (0-1) % ABG Hemoglobin (13.5-18.0) g/dL ABG Oxyhemoglobin % ABG Carboxyhemoglobin (0.0-1.6) % ABG Methemoglobin % VBG pH (7.350-7.450) VBG pCO2 mm/Hg VBG pO2 mm/Hg VBG HCO3 mmol/L VBG Total CO2 mmol/L VBG O2 Saturation VBG O2 Content %vol VBG Base Excess mm/L O2 Delivery Device Sodium 122 L (140-148) mmol/L Potassium 4.4 (3.6-5.2) mmol/L Chloride 88 L (100-108) mmol/L Carbon Dioxide 22 (21-32) mmol/L Anion Gap 16.4 H (5.0-14.0) mmol/L BUN 20 H (7-18) mg/dL Creatinine 1.5 H (0.8-1.3) mg/dL Est Cr Clr Drug Dosing 59.37 mL/min Estimated GFR (MDRD) 51 L (>60) Glucose 835 H* (74-106) mg/dL Lactic Acid 0.0 L (0.4-2.0) mmol/L Calcium 7.9 L (8.5-10.1) mg/dL Magnesium (1.8-2.4) mg/dL Total Bilirubin 1.0 D (0.2-1.0) mg/dL AST 39 H D (15-37) U/L ALT 58 D (12-78) U/L Alkaline Phosphatase 174 H (46-116) U/L C-Reactive Protein (0.0-0.3) mg/dL Total Protein 6.4 (6.4-8.2) g/dL Albumin 3.4 (3.4-5.0) g/dL Globulin 3.0 (2.3-3.5) g/dL Albumin/Globulin Ratio 1.1 L (1.2-2.2) 07/30/20 07/30/20 Range/Units 21:57 22:02 WBC (4.5-11.0) K/uL RBC (4.30-5.90) M/uL Hgb (12.0-15.0) g/dL Hct (40.0-54.0) % MCV (80-98) fL MCH (27-31) pg MCHC (32-36) % Plt Count (150-400) K/uL Neut % (Auto) (36-66) % Lymph % (Auto) (24-44) % Gosper % (Auto) (2-6) % Eos % (Auto) (2-4) % Baso % (Auto) (0-1) % ABG Hemoglobin 13.9 (13.5-18.0) g/dL ABG Oxyhemoglobin 83.0 % ABG Carboxyhemoglobin 2.4 H (0.0-1.6) % ABG Methemoglobin 1.6 % VBG pH 7.394 (7.350-7.450) VBG pCO2 41.3 mm/Hg VBG pO2 52.3 mm/Hg VBG HCO3 24.7 mmol/L VBG Total CO2 21.9 mmol/L VBG O2 Saturation 86.5 VBG O2 Content 16.2 %vol VBG Base Excess 0.3 mm/L O2 Delivery Device Room air Sodium (140-148) mmol/L Potassium (3.6-5.2) mmol/L Chloride (100-108) mmol/L Carbon Dioxide (21-32) mmol/L Anion Gap (5.0-14.0) mmol/L BUN (7-18) mg/dL Creatinine (0.8-1.3) mg/dL Est Cr Clr Drug Dosing mL/min Estimated GFR (MDRD) (>60) Glucose (74-106) mg/dL Lactic Acid (0.4-2.0) mmol/L Calcium (8.5-10.1) mg/dL Magnesium 1.8 (1.8-2.4) mg/dL Total Bilirubin (0.2-1.0) mg/dL AST (15-37) U/L ALT (12-78) U/L Alkaline Phosphatase (46-116) U/L C-Reactive Protein (0.0-0.3) mg/dL Total Protein (6.4-8.2) g/dL Albumin (3.4-5.0) g/dL Globulin (2.3-3.5) g/dL Albumin/Globulin Ratio (1.2-2.2) Meds: Medications Generic Name Dose Route Start Last Admin Trade Name Freq PRN Reason Stop Dose Admin Dextrose/Water 50 ml 07/30/20 21:53 50% Dextrose In Water 50 Ml Syringe IVPUSH ASDIRECTED PRN Hypoglycemia Glucagon 1 mg 07/30/20 21:53 Glucagon,Human Recombinant 1 Mg Vial IM ASDIRECTED PRN Hypoglycemia Sodium Chloride 1,000 mls @ 999 mls/hr 07/30/20 22:00 07/30/20 22:07 Normal Saline IV 999 mls/hr ASDIRECTED SPENCER Administration Sodium Chloride 10 ml 07/30/20 21:53 Sodium Chloride 0.9% 10 Ml Syringe FLUSH ASDIRECTED PRN Keep Vein Open Discontinued Medications Generic Name Dose Route Start Last Admin Trade Name Freq PRN Reason Stop Dose Admin Calcium Gluconate 1 gm 07/30/20 21:56 Calcium Gluconate 10% 1 Gm/10 Ml Sdv IVPUSH 07/30/20 21:57 ONETIME ONE Insulin Human Regular 15 unit 07/30/20 21:53 07/30/20 22:03 Insulin Regular, Human 100 Units/Ml 3 Ml Vial IVPUSH 07/30/20 21:54 15 units ONETIME ONE Administration - Re-Assessments/Exams Free Text/Narrative Re-Assessment/Exam: 07/30/20 22:03 reviewed the patient's labs and not surprising his blood glucose is 835. His CBC shows a leukocyte count of 6.3, hemoglobin of 13.3, hematocrit of 36.4 and a platelet count of 176,000. Certainly with that leukocyte count it makes it less likely that this is acute on chronic infection and with his glucose being so high we initiated other measures for possible DKA including establishing IV, starting hydration with normal saline 0.9% IV and starting insulin at 15 units IV push. I am checking additional labs including ketones, venous blood gas, magnesium, and urinalysis. Patient's comprehensive metabolic panel is significant for profound hyponatremia at 122, normal potassium of 4.4, chloride of 88 with a bicarbonate of 22. Patient's BUN is 20 with a creatinine of 1.5. Patient's GFR is calculated at 51. The patient has a calcium of 7.9 with a normal albumin. We will replete him with calcium gluconate 1 g IV push. This patient will likely need an admission to the ICU on an insulin drip for DKA which will be determined once I get his additional labs back. I had a very callum discussion with the patient about the need to manage his diabetes. He does do his daily shots as prescribed but he does not check blood sugar so he has no idea what his blood glucose is doing during the day. I strongly reinforced that he needs to know what his blood sugars are in order to manage his diabetes as he is obviously underdosing himself with Lantus. I did go into detail about the complications related to uncontrolled diabetes including the loss of limbs because of peripheral vascular disease. His leg pain may actually be due to peripheral neuropathy due to uncontrolled diabetes versus ischemic changes due to peripheral vascular disease. He certainly needs to take some ownership in his actual care of his health although I realize he does not have a very sophisticated understanding of diabetes and the seriousness of it. During his admission, it may be worthwhile to have a senior health educator meet with the patient. We were unable to get a C-reactive protein because of his blood being extremely light P MAC. I did not okay cholesterol but I suspect he has markedly elevated triglycerides. The fact that he is 835 and not in a coma suggest that he runs extremely high and has been for some time. The patient did comment that he felt "a little slow today." 06/24/21 22:23 venous blood gas shows a pH of 7.394, a peak venous PCO2 of 41.3, venous PO2 of 52.3, and a venous bicarbonate of 24.7. The patient has small ketones in his blood. We will be initiating an insulin drip and starting his second liter of IV fluid with 0.9% normal saline and 20 mEq of potassium. I discussed the case with Dr. Watkins, hospitalist photonic laboratory technician who will likely come over and admit the patient to the ICU for further care. Departure - Departure Time of Disposition: 22:26 Disposition: Admitted As Inpatient 68 Clinical Impression: Hyponatremia, Hypocalcemia, Hypochloremia, Left leg pain Chronic ulcer of left leg Qualifiers: Non-pressure ulcer stage: limited to breakdown of skin Qualified Code(s): L97.921 - Non-pressure chronic ulcer of unspecified part of left lower leg limited to breakdown of skin Diabetes mellitus type II, uncontrolled Qualifiers: Glycemic state: with hyperglycemia Qualified Code(s): E11.65 - Type 2 diabetes mellitus with hyperglycemia - Discharge Information Referrals: Emmanuel Jewell PRIMER INSERTING MACHINE OPERATOR [Primary Care Provider] - Forms: ED Department Discharge Sepsis Event Note (ED) - Evaluation Sepsis Screening Result: No Definite Risk - Focused Exam Vital Signs: Vital Signs Temp Pulse Resp BP Pulse Ox 07/30/20 20:50 155/91 H 07/30/20 20:27 35.3 C L 82 16 155/102 H 97 - Problem List & Annotations (1) Chronic ulcer of left leg SNOMED Code(s): 43377423 Code(s): L97.929 - NON-PRS CHRONIC ULC UNSP PRT OF L LOW LEG W UNSP SEVERITY Status: Chronic Priority: Medium Current Visit: Yes Qualifiers: Non-pressure ulcer stage: limited to breakdown of skin Qualified Code(s): L97.921 - Non-pressure chronic ulcer of unspecified part of left lower leg limited to breakdown of skin (2) Diabetes mellitus type II, uncontrolled SNOMED Code(s): 025526137, 100229273 Code(s): E11.65 - TYPE 2 DIABETES MELLITUS WITH HYPERGLYCEMIA Status: Acute Priority: High Current Visit: Yes Qualifiers: Glycemic state: with hyperglycemia Qualified Code(s): E11.65 - Type 2 diabetes mellitus with hyperglycemia (3) Hypocalcemia SNOMED Code(s): 8596935 Code(s): E83.51 - HYPOCALCEMIA Status: Acute Priority: High Current Visit: Yes (4) Hypochloremia SNOMED Code(s): 98019375 Code(s): E87.8 - OTH DISORDERS OF ELECTROLYTE AND FLUID BALANCE, NEC Stat us: Acute Priority: High Current Visit: Yes (5) Hyponatremia SNOMED Code(s): 87486023 Code(s): E87.1 - HYPO-OSMOLALITY AND HYPONATREMIA Status: Acute Priority: High Current Visit: Yes (6) Left leg pain SNOMED Code(s): 381522695 Code(s): M79.605 - PAIN IN LEFT LEG Status: Acute Priority: High Current Visit: Yes - Problem List Review Problem List Initiated/Reviewed/Updated: Yes - My Orders Last 24 Hours: My Active Orders 07/30/20 21:52 KETONES,BLOOD [CHEM] Stat 07/30/20 21:53 Dextrose 50% in Water 50 ml IVPUSH ASDIRECTED PRN Glucagon,Human Recombinant [GlucaGen] 1 mg IM ASDIRECTED PRN Sodium Chloride 0.9% [Saline Flush] 10 ml FLUSH ASDIRECTED PRN Saline Lock Insert [OM.PC] Routine 07/30/20 21:56 UA W/MICROSCOPIC [URIN] Stat 07/30/20 22:00 Sodium Chloride 0.9% [Normal Saline] 1,000 ml IV ASDIRECTED - Assessment/Plan Last 24 Hours: My Active Orders 07/30/20 21:52 KETONES,BLOOD [CHEM] Stat 07/30/20 21:53 Dextrose 50% in Water 50 ml IVPUSH ASDIRECTED PRN Glucagon,Human Recombinant [GlucaGen] 1 mg IM ASDIRECTED PRN Sodium Chloride 0.9% [Saline Flush] 10 ml FLUSH ASDIRECTED PRN Saline Lock Insert [OM.PC] Routine 07/30/20 21:56 UA W/MICROSCOPIC [URIN] Stat 07/30/20 22:00 Sodium Chloride 0.9% [Normal Saline] 1,000 ml IV ASDIRECTED
[2020-07-30] MEDS ORDERED: Insulin Regular, Human 100 Units/ML 3 ML Vial IVPUSH ONE (21:53)
[2020-07-30] MEDS ORDERED: 50% Dextrose in Water 50 ML Syringe IVPUSH PRN ×2 (21:53→23:56)
[2020-07-30] MEDS ORDERED: Glucagon,Human Recombinant 1 MG Vial IM PRN (21:53)
[2020-07-30] MEDS ORDERED: Sodium Chloride 0.9% 10 ML Syringe FLUSH PRN (21:53)
[2020-07-30] MEDS ORDERED: Calcium Gluconate 10% 1 GM/10 ML SDV IVPUSH ONE (21:56)
[2020-07-30] MEDS ORDERED: Sodium Chloride 0.9% 1,000 ML IV SCH (22:00)
[2020-07-30] MEDS ORDERED: Insulin Regular in 0.9 % NACL 100 ML IV SCH (22:30)
[2020-07-30] MEDS ORDERED: Insulin Lispro 100 Unit/ML 3 ML KwikPen SUBCUT SCH (23:45)
[2020-07-30] MEDS ORDERED: Magnesium Sulfate/Water 2 GM/50 ML BAG IV PRN (23:56)
[2020-07-30] MEDS ORDERED: Potassium Chloride 20 MEQ in Premix Bag 1 BAG IV PRN ×4 (23:56)
[2020-07-31] MEDS ORDERED: Sodium Chloride 0.9% 1,000 ML IV ONE (00:10)
[2020-07-31] MEDS ORDERED: Calcium Carbonate 500 MG Tab.Chew PO ONE (00:11)
[2020-07-31] MEDS ORDERED: Sodium Chloride 0.9% 1,000 ML IV SCH (00:15)
--- NOTE | 2020-07-31 00:28 | PCM.HP.2 ---
H&P History of Present Illness - General Date of Service: 07/31/20 Admit Problem/Dx: Admission Diagnosis/Problem Admission Diagnosis/Problem Hyperosmolar Hyperglycemic state Source of Information: Patient, Family (mother) History Limitations: Reports: No Limitations - History of Present Illness Initial Comments - Free Text/Narative: Mr. Philippe is a 45-year-old white male who presents with increasing pain in the left lower extremity and hyperglycemia. He says that he has had the leg ulcer for about a year however over the past couple of days the pain has increased. He has associated headache, blurry vision, dizziness, constipation, increased frequency of urination, presyncope and seeing stars, abdominal cramps, and leg cramps. He denies nausea and vomiting. He sees Dr. Perez in clinic with his last appointment being 06/11/2020. He is being treated for diabetes with Levemir 30 units at bedtime and 10 units of aspart with meals. He states that he does not take his blood sugar. He says he does have a machine but when he checks it at home the machine just says high and does not give him a number. He says that yesterday night he had [employer] for dinner which made him thirsty. Because he was thirsty he drank a 2 L of soda of 7-Up. He did not feel well today so he only ate a burrito. He says that he has been feeling more thirsty increasingly over the past 8 months. His mother states that he has gained a significant amount of weight in the past couple of months. Denies having any episodes of DKA in the past. He recently moved here in January from [facility] after an extensive stay in the hospital for a heart condition. The patient is not sure why it heart condition he had but he states that he was in the hospital for 60 days left the hospital and then went to a different hospital. During that entire time he had a PICC line that he was getting antibiotics him. He believes he may have had a heart attack during that time. 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 He states that before that he had regularly used methamphetamine since the age of [age] years old. 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 He had surgery on that leg and skin gra fting was done. He also has a history of pulmonary embolism and blood clot. He is currently on rivaroxaban for a blood clot in his calf from November. While being evaluated in the ED he was found to have an initial blood glucose of 835. His labs also showed significant dehydration with a sodium of 122 and chloride of 88. He has decreased kidney function with a creatinine of 1.5 and a GFR of 51. His AST is mildly elevated at 39. His alkaline phosphatase was elevated at 174. A repeat glucose showed a blood glucose of 455. His calcium was low at 7.9. He had a small amount of ketones in the urine. His ABG was in normal limits except for a carboxyhemoglobin level of 2.4. He was given an insulin bolus of regular insulin of 15 units. He was also given a 1 g IV push of calcium gluconate. Was started on an insulin drip and given a normal saline fluid bolus. He will be admitted to the ICU for IV insulin and close monitoring of his labs and vitals. Left Lower Leg Pain Score (Numeric/FACES): 8 - Related Data Allergies/Adverse Reactions: Allergies Allergy/AdvReac Type Severity Reaction Status Date / Time acetaminophen [From Vicodin] Allergy Rash Verified 07/30/20 20:30 hydrocodone [From Vicodin] Allergy Rash Verified 07/30/20 20:30 Home Medications: Home Meds Furosemide [Lasix] 20 mg PO WITHLUNCH 03/17/20 [History] Rosuvastatin [Crestor] 40 mg PO WITHLUNCH 03/17/20 [History] Spironolactone [Aldactone] 25 mg PO DAILY 03/17/20 [History] Magnesium Oxide [Magnesium] 400 mg PO WITHLUNCH 05/04/20 [History] Famotidine 40 mg PO BEDTIME 07/30/20 [History] Insulin Aspart [NovoLOG] 10 units SQ TIDAC 07/30/20 [History] Insulin Glarg,Human.Rec.Analog [Lantus Solostar] 30 units SQ BEDTIME 07/30/20 [History] Rivaroxaban [Xarelto] 20 mg PO WITHLUNCH 07/30/20 [History] carvediloL [Coreg] 25 mg PO BID 07/30/20 [History] Past Medical History HEENT History: Reports: None Cardiovascular History: Reports: Blood Clots/VTE/DVT, Heart Failure, High Cholesterol, Hypertension, [place] Respiratory History: Reports: PE Genitourinary History: Reports: Pyelonephritis Musculoskeletal History: Reports: Other (See Below) Other Musculoskeletal History: broke lots of bones on left Psychiatric History: Reports: Addiction 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 Endocrine/Metabolic History: Reports: Diabetes, Type II, Obesity/BMI 30+ Hematologic History: Reports: Iron Deficiency Other Hematologic History: blood clots in left calf Oncologic (Cancer) History: Reports: Other (See Below) Other Oncologic History: sarcoma - Infectious Disease History Infectious Disease History: Reports: Chicken Pox, Hepatitis C - Past Surgical History Head Surgeries/Procedures: Reports: None HEENT Surgical History: Reports: Tonsillectomy Cardiovascular Surgical History: Reports: None Respiratory Surgical History: Reports: None Endocrine Surgical History: Reports: None Musculoskeletal Surgical History: Reports: None Oncologic Surgical History: Reports: None, Biopsy of Breast Dermatological Surgical History: Reports: None Social & Family History - Tobacco Use Tobacco Use Status *Q: Never Tobacco User Second Hand Smoke Exposure: No - Caffeine Use Caffeine Use: Reports: Coffee, Soda, Tea - Recreational Drug Use Recreational Drug Use: No H&P Review of Systems - Review of Systems: Review Of Systems: See Below General: Reports: Weight Gain. Denies: Fever, Chills, Decreased Appetite HEENT: Reports: Headaches, Visual Changes Pulmonary: Denies: Shortness of Breath, Wheezing Cardiovascular: Denies: Chest Pain, Palpitations, Edema Gastrointestinal: Reports: Constipation. Denies: Abdominal Pain, Anorexia, Nausea, Vomiting Genitourinary: Reports: Frequency. Denies: Dysuria, Urgency Musculoskeletal: Reports: Leg Pain Skin: Reports: Other (ulcer on left leg) Psychiatric: Denies: Depression, Anxiety Neurological: Reports: Dizziness, Headache, Other (presyncope). Denies: Confusion Exam - Exam Exam: See Below - Vital Signs Vital Signs: Last Vital Signs Temp 95.5 F L 07/30/20 20:27 Pulse 82 07/30/20 20:27 Resp 16 07/30/20 20:27 BP 155/91 H 07/30/20 20:50 Pulse Ox 97 07/30/20 20:27 Weight: 213 lb 2.992 oz - Exam General: Alert, Oriented, Cooperative, Mild Distress HEENT: Conjunctiva Clear, EOMI, Hearing Intact, Nares Patent, Other. No: Mucosa Moist & Bivins Lungs: Clear to Auscultation, Normal Respiratory Effort. No: Wheezing Cardiovascular: Regular Rate, Regular Rhythm GI/Abdominal Exam: Normal Bowel Sounds, Soft, Non-Tender Back Exam: Normal Inspection. No: CVA Tenderness (R), CVA Tenderness (L), Vertebral Tenderness Extremities: No Pedal Edema, Other (3x2cm ulcerated lesion on antior left leg) Skin: Warm, Dry, Intact Neurological: Cranial Nerves Intact, Strength Equal Bilateral, Normal Gait, Normal Speech, Normal Tone Neuro Extensive - Mental Status: Alert, Oriented x3, Normal Mood/Affect, Normal Cognition Psychiatric: Alert, Normal Affect, Normal Mood - Patient Data Lab Results Last 24 hrs: Laboratory Results - last 24 hr 07/30/20 07/30/20 07/30/20 Range/Units 20:38 20:38 20:38 WBC 6.3 (4.5-11.0) K/uL RBC 4.57 (4.30-5.90) M/uL Hgb 13.3 (12.0-15.0) g/dL Hct 36.4 L (40.0-54.0) % MCV 80 (80-98) fL MCH 29 (27-31) pg MCHC 37 H (32-36) % Plt Count 176 (150-400) K/uL Neut % (Auto) 60.4 (36-66) % Lymph % (Auto) 26.9 (24-44) % Greenwood % (Auto) 10.0 H (2-6) % Eos % (Auto) 1.9 L (2-4) % Baso % (Auto) 0.8 (0-1) % ABG Hemoglobin (13.5-18.0) g/dL ABG Oxyhemoglobin % ABG Carboxyhemoglobin (0.0-1.6) % ABG Methemoglobin % VBG pH (7.350-7.450) VBG pCO2 mm/Hg VBG pO2 mm/Hg VBG HCO3 mmol/L VBG Total CO2 mmol/L VBG O2 Saturation VBG O2 Content %vol VBG Base Excess mm/L O2 Delivery Device Sodium 122 L (140-148) mmol/L Potassium 4.4 (3.6-5.2) mmol/L Chloride 88 L (100-108) mmol/L Carbon Dioxide 22 (21-32) mmol/L Anion Gap 16.4 H (5.0-14.0) mmol/L BUN 20 H (7-18) mg/dL Creatinine 1.5 H (0.8-1.3) mg/dL Est Cr Clr Drug Dosing 59.37 mL/min Estimated GFR (MDRD) 51 L (>60) Glucose 835 H* (74-106) mg/dL Lactic Acid 0.0 L (0.4-2.0) mmol/L Calcium 7.9 L (8.5-10.1) mg/dL Magnesium (1.8-2.4) mg/dL Total Bilirubin 1.0 D (0.2-1.0) mg/dL AST 39 H D (15-37) U/L ALT 58 D (12-78) U/L Alkaline Phosphatase 174 H (46-116) U/L C-Reactive Protein (0.0-0.3) mg/dL Total Protein 6.4 (6.4-8.2) g/dL Albumin 3.4 (3.4-5.0) g/dL Globulin 3.0 (2.3-3.5) g/dL Albumin/Globulin Ratio 1.1 L (1.2-2.2) Urine Color (YELLOW) Urine Appearance (CLEAR) Urine pH (5.0-8.0) Ur Specific Addison (1.008-1.030) Urine Protein (NEGATIVE) mg/dL Urine Glucose (UA) (NEGATIVE) mg/dL Urine Ketones (NEGATIVE) mg/dL Urine Occult Blood (NEGATIVE) Urine Nitrite (NEGATIVE) Urine Bilirubin (NEGATIVE) Urine Urobilinogen (0.2-1.0) EU/dL Ur Leukocyte Esterase (NEGATIVE) Urine RBC (0-5) Urine WBC (0-5) Ur Epithelial Cells Amorphous Sediment Urine Bacteria Urine Mucus Ketones (NEGATIVE) 07/30/20 07/30/20 07/30/20 Range/Units 21:52 21:56 21:57 WBC (4.5-11.0) K/uL RBC (4.30-5.90) M/uL Hgb (12.0-15.0) g/dL Hct (40.0-54.0) % MCV (80-98) fL MCH (27-31) pg MCHC (32-36) % Plt Count (150-400) K/uL Neut % (Auto) (36-66) % Lymph % (Auto) (24-44) % Green[place] % (Auto) (2-6) % Eos % (Auto) (2-4) % Baso % (Auto) (0-1) % ABG Hemoglobin (13.5-18.0) g/dL ABG Oxyhemoglobin % ABG Carboxyhemoglobin (0.0-1.6) % ABG Methemoglobin % VBG pH (7.350-7.450) VBG pCO2 mm/Hg VBG pO2 mm/Hg VBG HCO3 mmol/L VBG Total CO2 mmol/L VBG O2 Saturation VBG O2 Content %vol VBG Base Excess mm/L O2 Delivery Device Sodium (140-148) mmol/L Potassium (3.6-5.2) mmol/L Chloride (100-108) mmol/L Carbon Dioxide (21-32) mmol/L Anion Gap (5.0-14.0) mmol/L BUN (7-18) mg/dL Creatinine (0.8-1.3) mg/dL Est Cr Clr Drug Dosing mL/min Estimated GFR (MDRD) (>60) Glucose (74-106) mg/dL Lactic Acid (0.4-2.0) mmol/L Calcium (8.5-10.1) mg/dL Magnesium 1.8 (1.8-2.4) mg/dL Total Bilirubin (0.2-1.0) mg/dL AST (15-37) U/L ALT (12-78) U/L Alkaline Phosphatase (46-116) U/L C-Reactive Protein (0.0-0.3) mg/dL Total Protein (6.4-8.2) g/dL Albumin (3.4-5.0) g/dL Globulin (2.3-3.5) g/dL Albumin/Globulin Ratio (1.2-2.2) Urine Color Yellow (YELLOW) Urine Appearance Clear (CLEAR) Urine pH 6.0 (5.0-8.0) Ur Specific Addison 1.010 (1.008-1.030) Urine Protein Negative (NEGATIVE) mg/dL Urine Glucose (UA) 500 H (NEGATIVE) mg/dL Urine Ketones 15 H (NEGATIVE) mg/dL Urine Occult Blood Negative (NEGATIVE) Urine Nitrite Negative (NEGATIVE) Urine Bilirubin Negative (NEGATIVE) Urine Urobilinogen 0.2 (0.2-1.0) EU/dL Ur Leukocyte Esterase Negative (NEGATIVE) Urine RBC Not seen (0-5) Urine WBC Not seen (0-5) Ur Epithelial Cells Rare Amorphous Sediment Not seen Urine Bacteria Rare Urine Mucus Not seen Ketones Small H (NEGATIVE) 07/30/20 07/30/20 Range/Units 22:02 22:53 WBC (4.5-11.0) K/uL RBC (4.30-5.90) M/uL Hgb (12.0-15.0) g/dL Hct (40.0-54.0) % MCV (80-98) fL MCH (27-31) pg MCHC (32-36) % Plt Count (150-400) K/uL Neut % (Auto) (36-66) % Lymph % (Auto) (24-44) % Greenwood % (Auto) (2-6) % Eos % (Auto) (2-4) % Baso % (Auto) (0-1) % ABG Hemoglobin 13.9 (13.5-18.0) g/dL ABG Oxyhemoglobin 83.0 % ABG Carboxyhemoglobin 2.4 H (0.0-1.6) % ABG Methemoglobin 1.6 % VBG pH 7.394 (7.350-7.450) VBG pCO2 41.3 mm/Hg VBG pO2 52.3 mm/Hg VBG HCO3 24.7 mmol/L VBG Total CO2 21.9 mmol/L VBG O2 Saturation 86.5 VBG O2 Content 16.2 %vol VBG Base Excess 0.3 mm/L O2 Delivery Device Room air Sodium (140-148) mmol/L Potassium (3.6-5.2) mmol/L Chloride (100-108) mmol/L Carbon Dioxide (21-32) mmol/L Anion Gap (5.0-14.0) mmol/L BUN (7-18) mg/dL Creatinine (0.8-1.3) mg/dL Est Cr Clr Drug Dosing mL/min Estimated GFR (MDRD) (>60) Glucose 455 H* (74-106) mg/dL Lactic Acid (0.4-2.0) mmol/L Calcium (8.5-10.1) mg/dL Magnesium (1.8-2.4) mg/dL Total Bilirubin (0.2-1.0) mg/dL AST (15-37) U/L ALT (12-78) U/L Alkaline Phosphatase (46-116) U/L C-Reactive Protein (0.0-0.3) mg/dL Total Protein (6.4-8.2) g/dL Albumin (3.4-5.0) g/dL Globulin (2.3-3.5) g/dL Albumin/Globulin Ratio (1.2-2.2) Urine Color (YELLOW) Urine Appearance (CLEAR) Urine pH (5.0-8.0) Ur Specific Addison (1.008-1.030) Urine Protein (NEGATIVE) mg/dL Urine Glucose (UA) (NEGATIVE) mg/dL Urine Ketones (NEGATIVE) mg/dL Urine Occult Blood (NEGATIVE) Urine Nitrite (NEGATIVE) Urine Bilirubin (NEGATIVE) Urine Urobilinogen (0.2-1.0) EU/dL Ur Leukocyte Esterase (NEGATIVE) Urine RBC (0-5) Urine WBC (0-5) Ur Epithelial Cells Amorphous Sediment Urine Bacteria Urine Mucus Ketones (NEGATIVE) Result Diagrams: 07/30/20 20:38 07/30/20 23:50 Sepsis Event Note - Evaluation Sepsis Screening Result: No Definite Risk - Focused Exam Vital Signs: Vital Signs Temp Pulse Resp BP Pulse Ox 07/30/20 20:50 155/91 H 07/30/20 20:27 95.5 F L 82 16 155/102 H 97 - Problem List (1) Hyperosmolar hyperglycemic state (HHS) SNOMED Code(s): 777540590 ICD Code: E11.00 - TYPE 2 DIAB W HYPROSM W/O NONKET HYPRGLY-HYPROS COMA (NKHHC); E11.65 - TYPE 2 DIABETES MELLITUS WITH HYPERGLYCEMIA Status: Acute Current Visit: Yes (2) Dehydration SNOMED Code(s): 95073731 ICD Code: E86.0 - DEHYDRATION Status: Acute Current Visit: Yes (3) Diabetes mellitus type II, uncontrolled SNOMED Code(s): 049757357, 923870542 ICD Code: E11.65 - TYPE 2 DIABETES MELLITUS WITH HYPERGLYCEMIA Status: Ac false pass Priority: High Current Visit: Yes Qualifiers: Glycemic state: with hyperglycemia Qualified Code(s): E11.65 - Type 2 diabetes mellitus with hyperglycemia (4) Chronic ulcer of left leg SNOMED Code(s): 72361535 ICD Code: L97.929 - NON-PRS CHRONIC ULC UNSP PRT OF L LOW LEG W UNSP SEVERITY Status: Chronic Priority: Medium Current Visit: Yes Qualifiers: Non-pressure ulcer stage: limited to breakdown of skin Qualified Code(s): L97.921 - Non-pressure chronic ulcer of unspecified part of left lower leg limited to breakdown of skin Problem List Initiated/Reviewed/Updated: Yes Orders Last 24hrs: Active Orders 24 hr Category Date Time Status Admission Status [Patient Status] [ADT] Routine ADT 07/30/20 23:17 Active Blood Glucose Check, Bedside [RC] TIDAC Care 07/30/20 23:31 Ordered Communication Order [RC] ASDIRECTED Care 07/30/20 22:30 Active Communication Order [RC] ASDIRECTED Care 07/30/20 23:46 Ordered Communication Order [RC] PRN Care 07/30/20 23:31 Ordered Communication Order [RC] PRN Care 07/30/20 23:31 Ordered Diabetes Education [RC] Click to Edit Care 07/30/20 22:30 Active Diabetes Education [RC] Click to Edit Care 07/30/20 23:31 Ordered Diabetes Education [RC] Click to Edit Care 07/30/20 23:46 Ordered Notify Provider Laboratory Res [RC] ASDIRECTED Care 07/30/20 23:57 Ordered Notify Provider [RC] PRN Care 07/30/20 22:30 Active Notify Provider [RC] PRN Care 07/30/20 23:46 Ordered Vital Signs [RC] Q1H Care 07/30/20 23:56 Ordered BASIC METABOLIC PANEL,BMP [CHEM] Q4H Lab 07/30/20 23:56 Ordered BASIC METABOLIC PANEL,BMP [CHEM] Q4H Lab 07/31/20 03:56 Ordered BASIC METABOLIC PANEL,BMP [CHEM] Q4H Lab 07/31/20 07:56 Ordered BASIC METABOLIC PANEL,BMP [CHEM] Q4H Lab 07/31/20 11:56 Ordered BASIC METABOLIC PANEL,BMP [CHEM] Q4H Lab 07/31/20 15:56 Ordered BASIC METABOLIC PANEL,BMP [CHEM] Q4H Lab 07/31/20 19:56 Ordered BASIC METABOLIC PANEL,BMP [CHEM] Stat Lab 07/30/20 23:49 Ordered CHOLESTEROL HDL [CHEM] Routine Lab 07/31/20 05:00 Ordered CHOLESTEROL LDL DIRECT [CHEM] Routine Lab 08/01/20 05:00 Ordered CHOLESTEROL TOTAL [CHEM] Routine Lab 08/01/20 05:00 Ordered GLUCOSE RANDOM [CHEM] [facility] Lab 07/31/20 00:45 Ordered GLUCOSE RANDOM [CHEM] [facility] Lab 07/31/20 01:45 Ordered GLUCOSE RANDOM [CHEM] [facility] Lab 07/31/20 02:45 Ordered GLUCOSE RANDOM [CHEM] [facility] Lab 07/31/20 03:45 Ordered GLUCOSE RANDOM [CHEM] [facility] Lab 07/31/20 04:45 Ordered GLUCOSE RANDOM [CHEM] [facility] Lab 07/31/20 05:45 Ordered GLUCOSE RANDOM [CHEM] [facility] Lab 07/31/20 06:45 Ordered GLUCOSE RANDOM [CHEM] [facility] Lab 07/31/20 07:45 Ordered GLUCOSE RANDOM [CHEM] [facility] Lab 07/31/20 08:45 Ordered GLUCOSE RANDOM [CHEM] [facility] Lab 07/31/20 09:45 Ordered GLUCOSE RANDOM [CHEM] [facility] Lab 07/31/20 10:45 Ordered GLUCOSE RANDOM [CHEM] [facility] Lab 07/31/20 11:45 Ordered GLUCOSE RANDOM [CHEM] [facility] Lab 07/31/20 12:45 Ordered GLUCOSE RANDOM [CHEM] [facility] Lab 07/31/20 13:45 Ordered GLUCOSE RANDOM [CHEM] [facility] Lab 07/31/20 14:45 Ordered GLUCOSE RANDOM [CHEM] [facility] Lab 07/31/20 15:45 Ordered GLUCOSE RANDOM [CHEM] [facility] Lab 07/31/20 16:45 Ordered GLUCOSE RANDOM [CHEM] [facility] Lab 07/31/20 17:45 Ordered GLUCOSE RANDOM [CHEM] [facility] Lab 07/31/20 18:45 Ordered GLUCOSE RANDOM [CHEM] [facility] Lab 07/31/20 19:45 Ordered GLUCOSE RANDOM [CHEM] [facility] Lab 07/31/20 20:45 Ordered GLUCOSE RANDOM [CHEM] [facility] Lab 07/31/20 21:45 Ordered GLYCOSYLATED HEMOGLOBIN,HGBA1C [CHEM] AM Lab 07/31/20 05:11 Ordered MAGNESIUM [CHEM] Q6H Lab 07/30/20 23:56 Ordered MAGNESIUM [CHEM] Q Lab 07/31/20 05:56 Ordered MAGNESIUM [CHEM] [facility] 07/31/20 11:56 Ordered MAGNESIUM [CHEM] [facility] Lab 07/31/20 17:56 Ordered PHOSPHORUS [CHEM] Q Lab 07/30/20 23:56 Ordered PHOSPHORUS [CHEM] Q6 Lab 07/31/20 05:56 Ordered PHOSPHORUS [CHEM] [facility] Lab 07/31/20 11:56 Ordered PHOSPHORUS [CHEM] [facility] Lab 07/31/20 17:56 Ordered POTASSIUM,K [CHEM] [facility] Lab 07/31/20 01:56 Ordered POTASSIUM,K [CHEM] [facility] Lab 07/31/20 05:56 Ordered POTASSIUM,K [CHEM] [facility] Lab 07/31/20 09:56 Ordered POTASSIUM,K [CHEM] [facility] Lab 07/31/20 13:56 Ordered POTASSIUM,K [CHEM] [facility] Lab 07/31/20 17:56 Ordered POTASSIUM,K [CHEM] [facility] Lab 07/31/20 21:56 Ordered TRIGLYCERIDES [CHEM] Routine Lab 08/01/20 05:00 Ordered Calcium Carbonate [Tums] Med 07/31/20 00:11 Once 1,000 mg PO ONETIME ONE Dextrose 50% in Water Med 07/30/20 21:53 Active 50 ml IVPUSH ASDIRECTED PRN Dextrose 50% in Water Med 07/30/20 23:56 Active 50 ml IVPUSH ONETIME PRN Famotidine [Pepcid] Med 07/31/20 21:00 Active 40 mg PO BEDTIME Glucagon,Human Recombinant [GlucaGen] Med 07/30/20 21:53 Active 1 mg IM ASDIRECTED PRN Insulin Lispro [HumaLOG] Med 07/30/20 23:45 Pending See Protocol SUBCUT ASDIRECTED Insulin Regular in 0.9 % NACL [Myxredlin in NS 100 UNIT Med 07/30/20 22:30 Active /100 ML] 100 ml IV ASDIRECTED Magnesium Oxide Med 07/31/20 12:00 Active 400 mg PO WITHLUNCH Magnesium Sulfate/Water [Magnesium Sulfate in Water 2 Med 07/30/20 23:56 Ordered GM/50 ML] 50 ml IV ONETIME Potassium Chloride [KCL in Water 20 MEQ/100 ML] 20 meq Med 07/30/20 23:56 Ordered Premix Bag 1 bag IV ONETIME Potassium Chloride [KCL in Water 20 MEQ/100 ML] 20 meq Med 07/30/20 23:56 Active Premix Bag 1 bag IV Q2H Potassium Chloride [KCL in Water 20 MEQ/100 ML] 20 meq Med 07/30/20 23:56 Active Premix Bag 1 bag IV Q2H Rivaroxaban [Xarelto] Med 07/31/20 12:00 Active 20 mg PO WITHLUNCH Rosuvastatin [Crestor] Med 07/31/20 12:00 Active 40 mg PO WITHLUNCH Sodium Chloride 0.9% [Normal Saline] 1,000 ml Med 07/30/20 22:00 Active IV ASDIRECTED Sodium Chloride 0.9% [Normal Saline] 1,000 ml Med 07/31/20 00:15 Active IV ASDIRECTED Sodium Chloride 0.9% [Saline Flush] Med 07/30/20 21:53 Active 10 ml FLUSH ASDIRECTED PRN Spironolactone [Aldactone] Med 07/31/20 09:00 Active 25 mg PO DAILY carvediloL [Coreg] Med 07/31/20 09:00 Active 25 mg PO BID Saline Lock Insert [OM.PC] Routine Oth 07/30/20 21:53 Ordered Medication Orders Calcium Carbonate/Glycine (Calcium Carbonate 500 Mg Tab.Chew) 1,000 mg PO ONETIME ONE Stop: 07/31/20 00:12 Carvedilol (Carvedilol 12.5 Mg Tab) 25 mg PO BID SPENCER Dextrose/Water (50% Dextrose In Water 50 Ml Syringe) 50 ml IVPUSH ASDIRECTED PRN PRN Reason: Hypoglycemia Dextrose/Water (50% Dextrose In Water 50 Ml Syringe) 50 ml IVPUSH ONETIME PRN PRN Reason: Blood Glucose Famotidine (Famotidine 20 Mg Tab) 40 mg PO BEDTIME SPENCER Glucagon (Glucagon,Human Recombinant 1 Mg Vial) 1 mg IM ASDIRECTED PRN PRN Reason: Hypoglycemia Sodium Chloride (Normal Saline) 1,000 mls @ 999 mls/hr IV ASDIRECTED SPENCER Last Admin: 07/30/20 22:07 Dose: 999 mls/hr Documented by: HELENA Insulin Regular in 0.9 % NACL (Myxredlin In Ns 100 Unit/100 Ml) 100 mls @ 9.67 mls/hr IV ASDIRECTED SPENCER; Protocol Last Admin: 07/30/20 22:57 Dose: 0.1 units/kg/hr, 9.67 mls/hr Documented by: HELENA Cosigned by: ED Magnesium Sulfate (Magnesium Sulfate In Water 2 Gm/50 Ml) 2 gm in 50 mls @ 25 mls/hr IV ONETIME PRN PRN Reason: low magnesium Potassium Chloride 20 meq/ (Premix) 100 mls @ 50 mls/hr IV Q2H PRN PRN Reason: Hypokalemia Potassium Chloride 20 meq/ (Premix) 100 mls @ 50 mls/hr IV ONETIME ONE Stop: 07/31/20 01:55 Potassium Chloride 20 meq/ (Premix) 100 mls @ 50 mls/hr IV Q2H PRN PRN Reason: Hypokalemia Sodium Chloride (Normal Saline) 1,000 mls @ 100 mls/hr IV ASDIRECTED SPENCER Insulin Human Lispro (Insulin Lispro 100 Unit/Ml 3 Ml Kwikpen) 0 unit SUBCUT ASDIRECTED SPENCER; Protocol Magnesium Oxide (Magnesium Oxide 400 Mg Tab) 400 mg PO WITHLUNCH SPENCER Rivaroxaban (Rivaroxaban 10 Mg Tab) 20 mg PO WITHLUNCH SPENCER Rosuvastatin Calcium (Rosuvastatin 10 Mg Tab) 40 mg PO WITHLUNCH SPENCER Sodium Chloride (Sodium Chloride 0.9% 10 Ml Syringe) 10 ml FLUSH ASDIRECTED PRN PRN Reason: Keep Vein Open Last Admin: 07/30/20 22:13 Dose: 10 ml Documented by: HELENA Spironolactone (Spironolactone 25 Mg Tab) 25 mg PO DAILY [facility] Assessment/Plan Comment:: Hyperosmolar hyperglycemic state -Patient's initial blood sugar was markedly high at 835 without elevation in blood pH which was 7.394 -He was started on IV insulin per protocol with hypoglycemia precautions -Once his blood glucose has been controlled by the drip he will be switched over to subcutaneous insulin -We will monitor a basic metabolic panel every 4 hours and a magnesium level every 6 hours -We will do bedside glucose checks every hour -He was given 1 fluid bolus in the ED he will be given another fluid bolus, and then be started on a normal saline drip at 100 mL/h -Once his glucose is 200 he will then be switched to a D5 half-normal drip at 100 mL/h-has been communicated to the nurse -Protocols in place for hypomagnesemia or hypokalemia to be given if these labs arise -We will have continuous cardiac monitoring and continuous pulse ox Left leg ulceration with possible cellulitis-3 x 2 cm -Increasing pain over the past 3 days there is concern for cellulitis, the area is red however he also has extensive scarring due to skin grafting in that area 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 Closely monitor his labs during this time. We will also start antibiotics for the leg ulceration with possible cellulitis. We will continue to give him fluids until he is no longer showing signs of dehydration. We will continue his home medications for his heart disease, recurrent blood clots, and GERD. Disposition: Will most likely go home with self-care after his stay Rosibel Watkins DO - Mortality Measure Prognosis:: Good
[2020-07-31] MEDS: Potassium Chloride 20 MEQ in Premix Bag 1 BAG IV PRN ×2 (00:42→02:27)
[2020-07-31] MEDS ORDERED: 50% Dextrose in Water 50 ML Syringe IVPUSH PRN ×2 (01:07→21:56)
[2020-07-31] MEDS ORDERED: Glucagon,Human Recombinant 1 MG Vial IM PRN ×2 (01:07→21:56)
[2020-07-31] MEDS ORDERED: Insulin Glargine,Human Rec. Analog 100 Units/ML 3 ML Pen SUBCUT ONE (01:08)
[2020-07-31] MEDS: cefTRIAXone 2 GM in Sodium Chloride 0.9% 50 ML IV SCH (01:14)
[2020-07-31] MEDS ORDERED: Dextrose 5%-0.45% NaCl 1,000 ML IV SCH (01:15)
[2020-07-31] MEDS: Acetaminophen 500 MG Tab PO PRN ×4 (01:26→16:44)
[2020-07-31] MEDS ORDERED: Lidocaine 1% 2 ML ONE (05:04)
[2020-07-31] MEDS ORDERED: Lidocaine 1% 50 ML MDV INJECT ONE (05:06)
[2020-07-31] MEDS: Spironolactone 25 MG Tab PO SCH (08:03)
[2020-07-31] MEDS: Carvedilol 12.5 MG Tab PO SCH ×2 (08:04→21:20)
[2020-07-31] MEDS: Sodium Chloride 0.9% 1,000 ML IV SCH ×2 (08:53→17:35)
[2020-07-31 10:48] LABS: HEMOGLOBIN A1C > 14.0 % (4.5-6.2)
[2020-07-31] MEDS ORDERED: Magnesium Oxide 400 MG Tab PO SCH (12:00)
[2020-07-31] MEDS ORDERED: Insulin Lispro 100 Unit/ML 3 ML KwikPen SUBCUT SCH (12:00)
[2020-07-31] MEDS ORDERED: Rosuvastatin 10 MG Tab PO SCH (12:00)
[2020-07-31] MEDS ORDERED: Rivaroxaban 10 MG Tab PO SCH (12:00)
[2020-07-31] MEDS: Insulin Lispro 100 Unit/ML 3 ML KwikPen SUBCUT SCH ×3 (12:08→21:22)
[2020-07-31] MEDS: Rosuvastatin 10 MG Tab PO SCH (16:43)
[2020-07-31] MEDS: Magnesium Oxide 400 MG Tab PO SCH (16:44)
[2020-07-31] MEDS: Rivaroxaban 10 MG Tab PO SCH (16:44)
[2020-07-31] MEDS ORDERED: Labetalol 20 MG/4 ML Syringe IVPUSH PRN (20:57)
[2020-07-31] MEDS ORDERED: Insulin Glargine,Human Rec. Analog 100 Units/ML 3 ML Pen SUBCUT SCH (21:00)
[2020-07-31] MEDS: Famotidine 20 MG Tab PO SCH (21:20)
[2020-07-31] MEDS: Furosemide 20 MG Tab PO SCH (21:21)
--- NOTE | 2020-07-31 21:55 | PCM.PN ---
- General Info Date of Service: 07/31/20 Admission Dx/Problem (Free Text): Admission Diagnosis/Problem Admission Diagnosis/Problem Hyperosmolar Hyperglycemic state Subjective Update: Mr. Philippe is doing significantly better today. He was able to come off the insulin drip last night and was started on subcutaneous insulin around 1 AM. He has been able to drink and eat without nausea or vomiting. He is no longer having any symptoms. He does seem to be very thirsty. He is urinating well. And he has no complaints. His blood sugars are still out of control with levels over 300 today. They are also having difficulty controlling his blood pressure with blood pressures over 180 systolic. Functional Status: Reports: Tolerating Diet, Ambulating, Urinating - Review of Systems General: Reports: No Symptoms, Appetite. Denies: Fever, Weakness, Chills HEENT: Reports: No Symptoms. Denies: Headaches, Visual Changes Pulmonary: Reports: No Symptoms. Denies: Shortness of Breath, Cough Cardiovascular: Reports: No Symptoms. Denies: Chest Pain, Palpitations Gastrointestinal: Reports: No Symptoms, Other (Thirsty). Denies: Abdominal Pain, Constipation, Diarrhea, Nausea, Vomiting Genitourinary: Reports: No Symptoms, Frequency Musculoskeletal: Reports: No Symptoms (Related to consumption of fluids) Skin: Reports: No Symptoms Neurological: Reports: No Symptoms. Denies: Confusion, Dizziness, Headache - Patient Data Vitals - Most Recent: Last Vital Signs Temp 97.9 F 07/31/20 20:00 Pulse 74 07/31/20 21:20 Resp 23 H 07/31/20 20:00 BP 181/122 H 07/31/20 21:20 Pulse Ox 97 07/31/20 20:00 Weight - Most Recent: 224 lb I&O - Last 24 Hours: Intake & Output 07/31/20 07/31/20 07/31/20 06:59 14:59 22:59 Intake Total 7021 3702 Output Total 1883 1800 3300 Balance 4889 -1800 402 Lab Results Last 24 Hours: Laboratory Results - last 24 hr 07/30/20 07/30/20 07/30/20 Range/Units 20:38 20:38 21:52 ABG Hemoglobin (13.5-18.0) g/dL ABG Oxyhemoglobin % ABG Carboxyhemoglobin (0.0-1.6) % ABG Methemoglobin % VBG pH (7.350-7.450) VBG pCO2 mm/Hg VBG pO2 mm/Hg VBG HCO3 mmol/L VBG Total CO2 mmol/L VBG O2 Saturation VBG O2 Content %vol VBG Base Excess mm/L O2 Delivery Device Sodium 122 L (140-148) mmol/L Potassium 4.4 (3.6-5.2) mmol/L Chloride 88 L (100-108) mmol/L Carbon Dioxide 22 (21-32) mmol/L Anion Gap 16.4 H (5.0-14.0) mmol/L BUN 20 H (7-18) mg/dL Creatinine 1.5 H (0.8-1.3) mg/dL Est Cr Clr Drug Dosing 59.37 mL/min Estimated GFR (MDRD) 51 L (>60) Glucose 835 H* (74-106) mg/dL POC Glucose (74-106) mg/dL Hemoglobin A1c (4.5-6.2) % Lactic Acid 0.0 L (0.4-2.0) mmol/L Calcium 7.9 L (8.5-10.1) mg/dL Phosphorus (2.5-4.9) mg/dL Magnesium (1.8-2.4) mg/dL Total Bilirubin 1.0 D (0.2-1.0) mg/dL AST 39 H D (15-37) U/L ALT 58 D (12-78) U/L Alkaline Phosphatase 174 H (46-116) U/L C-Reactive Protein (0.0-0.3) mg/dL Total Protein 6.4 (6.4-8.2) g/dL Albumin 3.4 (3.4-5.0) g/dL Globulin 3.0 (2.3-3.5) g/dL Albumin/Globulin Ratio 1.1 L (1.2-2.2) HDL Cholesterol (40-60) mg/dL Urine Color (YELLOW) Urine Appearance (CLEAR) Urine pH (5.0-8.0) Ur Specific [place] (1.008-1.030) Urine Protein (NEGATIVE) mg/dL Urine Glucose (UA) (NEGATIVE) mg/dL Urine Ketones (NEGATIVE) mg/dL Urine Occult Blood (NEGATIVE) Urine Nitrite (NEGATIVE) Urine Bilirubin (NEGATIVE) Urine Urobilinogen (0.2-1.0) EU/dL Ur Leukocyte Esterase (NEGATIVE) Urine RBC (0-5) Urine WBC (0-5) Ur Epithelial Cells Amorphous Sediment Urine Bacteria Urine Mucus Ketones Small H (NEGATIVE) 07/30/20 07/30/20 07/30/20 Range/Units 21:56 21:57 22:02 ABG Hemoglobin 13.9 (13.5-18.0) g/dL ABG Oxyhemoglobin 83.0 % ABG Carboxyhemoglobin 2.4 H (0.0-1.6) % ABG Methemoglobin 1.6 % VBG pH 7.394 (7.350-7.450) VBG pCO2 41.3 mm/Hg VBG pO2 52.3 mm/Hg VBG HCO3 24.7 mmol/L VBG Total CO2 21.9 mmol/L VBG O2 Saturation 86.5 VBG O2 Content 16.2 %vol VBG Base Excess 0.3 mm/L O2 Delivery Device Room air Sodium (140-148) mmol/L Potassium (3.6-5.2) mmol/L Chloride (100-108) mmol/L Carbon Dioxide (21-32) mmol/L Anion Gap (5.0-14.0) mmol/L BUN (7-18) mg/dL Creatinine (0.8-1.3) mg/dL Est Cr Clr Drug Dosing mL/min Estimated GFR (MDRD) (>60) Glucose (74-106) mg/dL POC Glucose (74-106) mg/dL Hemoglobin A1c (4.5-6.2) % Lactic Acid (0.4-2.0) mmol/L Calcium (8.5-10.1) mg/dL Phosphorus (2.5-4.9) mg/dL Magnesium 1.8 (1.8-2.4) mg/dL Total Bilirubin (0.2-1.0) mg/dL AST (15-37) U/L ALT (12-78) U/L Alkaline Phosphatase (46-116) U/L C-Reactive Protein (0.0-0.3) mg/dL Total Protein (6.4-8.2) g/dL Albumin (3.4-5.0) g/dL Globulin (2.3-3.5) g/dL Albumin/Globulin Ratio (1.2-2.2) HDL Cholesterol (40-60) mg/dL Urine Color Yellow (YELLOW) Urine Appearance Clear (CLEAR) Urine pH 6.0 (5.0-8.0) Ur Specific [place] 1.010 (1.008-1.030) Urine Protein Negative (NEGATIVE) mg/dL Urine Glucose (UA) 500 H (NEGATIVE) mg/dL Urine Ketones 15 H (NEGATIVE) mg/dL Urine Occult Blood Negative (NEGATIVE) Urine Nitrite Negative (NEGATIVE) Urine Bilirubin Negative (NEGATIVE) Urine Urobilinogen 0.2 (0.2-1.0) EU/dL Ur Leukocyte Esterase Negative (NEGATIVE) Urine RBC Not seen (0-5) Urine WBC Not seen (0-5) Ur Epithelial Cells Rare Amorphous Sediment Not seen Urine Bacteria Rare Urine Mucus Not seen Ketones (NEGATIVE) 07/30/20 07/30/20 07/30/20 Range/Units 22:53 23:50 23:56 ABG Hemoglobin (13.5-18.0) g/dL ABG Oxyhemoglobin % ABG Carboxyhemoglobin (0.0-1.6) % ABG Methemoglobin % VBG pH (7.350-7.450) VBG pCO2 mm/Hg VBG pO2 mm/Hg VBG HCO3 mmol/L VBG Total CO2 mmol/L VBG O2 Saturation VBG O2 Content %vol VBG Base Excess mm/L O2 Delivery Device Sodium 137 L (140-148) mmol/L Potassium 3.3 L (3.6-5.2) mmol/L Chloride 100 (100-108) mmol/L Carbon Dioxide 26 (21-32) mmol/L Anion Gap 14.3 H (5.0-14.0) mmol/L BUN 19 H (7-18) mg/dL Creatinine 1.2 (0.8-1.3) mg/dL Est Cr Clr Drug Dosing 74.21 mL/min Estimated GFR (MDRD) > 60 (>60) Glucose 455 H* 240 H (74-106) mg/dL POC Glucose (74-106) mg/dL Hemoglobin A1c (4.5-6.2) % Lactic Acid (0.4-2.0) mmol/L Calcium 8.0 L (8.5-10.1) mg/dL Phosphorus 3.5 (2.5-4.9) mg/dL Magnesium 1.8 (1.8-2.4) mg/dL Total Bilirubin (0.2-1.0) mg/dL AST (15-37) U/L ALT (12-78) U/L Alkaline Phosphatase (46-116) U/L C-Reactive Protein (0.0-0.3) mg/dL Total Protein (6.4-8.2) g/dL Albumin (3.4-5.0) g/dL Globulin (2.3-3.5) g/dL Albumin/Globulin Ratio (1.2-2.2) HDL Cholesterol (40-60) mg/dL Urine Color (YELLOW) Urine Appearance (CLEAR) Urine pH (5.0-8.0) Ur Specific [place] (1.008-1.030) Urine Protein (NEGATIVE) mg/dL Urine Glucose (UA) (NEGATIVE) mg/dL Urine Ketones (NEGATIVE) mg/dL Urine Occult Blood (NEGATIVE) Urine Nitrite (NEGATIVE) Urine Bilirubin (NEGATIVE) Urine Urobilinogen (0.2-1.0) EU/dL Ur Leukocyte Esterase (NEGATIVE) Urine RBC (0-5) Urine WBC (0-5) Ur Epithelial Cells Amorphous Sediment Urine Bacteria Urine Mucus Ketones (NEGATIVE) 07/31/20 07/31/20 07/31/20 Range/Units 01:05 02:03 03:05 ABG Hemoglobin (13.5-18.0) g/dL ABG Oxyhemoglobin % ABG Carboxyhemoglobin (0.0-1.6) % ABG Methemoglobin % VBG pH (7.350-7.450) VBG pCO2 mm/Hg VBG pO2 mm/Hg VBG HCO3 mmol/L VBG Total CO2 mmol/L VBG O2 Saturation VBG O2 Content %vol VBG Base Excess mm/L O2 Delivery Device Sodium (140-148) mmol/L Potassium (3.6-5.2) mmol/L Chloride (100-108) mmol/L Carbon Dioxide (21-32) mmol/L Anion Gap (5.0-14.0) mmol/L BUN (7-18) mg/dL Creatinine (0.8-1.3) mg/dL Est Cr Clr Drug Dosing mL/min Estimated GFR (MDRD) (>60) Glucose (74-106) mg/dL POC Glucose 153 H 109 H 206 H (74-106) mg/dL Hemoglobin A1c (4.5-6.2) % Lactic Acid (0.4-2.0) mmol/L Calcium (8.5-10.1) mg/dL Phosphorus (2.5-4.9) mg/dL Magnesium (1.8-2.4) mg/dL Total Bilirubin (0.2-1.0) mg/dL AST (15-37) U/L ALT (12-78) U/L Alkaline Phosphatase (46-116) U/L C-Reactive Protein (0.0-0.3) mg/dL Total Protein (6.4-8.2) g/dL Albumin (3.4-5.0) g/dL Globulin (2.3-3.5) g/dL Albumin/Globulin Ratio (1.2-2.2) HDL Cholesterol (40-60) mg/dL Urine Color (YELLOW) Urine Appearance (CLEAR) Urine pH (5.0-8.0) Ur Specific [place] (1.008-1.030) Urine Protein (NEGATIVE) mg/dL Urine Glucose (UA) (NEGATIVE) mg/dL Urine Ketones (NEGATIVE) mg/dL Urine Occult Blood (NEGATIVE) Urine Nitrite (NEGATIVE) Urine Bilirubin (NEGATIVE) Urine Urobilinogen (0.2-1.0) EU/dL Ur Leukocyte Esterase (NEGATIVE) Urine RBC (0-5) Urine WBC (0-5) Ur Epithelial Cells Amorphous Sediment Urine Bacteria Urine Mucus Ketones (NEGATIVE) 07/31/20 07/31/20 07/31/20 Range/Units 04:20 04:20 04:20 ABG Hemoglobin (13.5-18.0) g/dL ABG Oxyhemoglobin % ABG Carboxyhemoglobin (0.0-1.6) % ABG Methemoglobin % VBG pH (7.350-7.450) VBG pCO2 mm/Hg VBG pO2 mm/Hg VBG HCO3 mmol/L VBG Total CO2 mmol/L VBG O2 Saturation VBG O2 Content %vol VBG Base Excess mm/L O2 Delivery Device Sodium 137 L (140-148) mmol/L Potassium 3.9 (3.6-5.2) mmol/L Chloride 103 (100-108) mmol/L Carbon Dioxide 25 (21-32) mmol/L Anion Gap 12.9 (5.0-14.0) mmol/L BUN 16 (7-18) mg/dL Creatinine 1.2 (0.8-1.3) mg/dL Est Cr Clr Drug Dosing 74.21 mL/min Estimated GFR (MDRD) > 60 (>60) Glucose 300 H (74-106) mg/dL POC Glucose (74-106) mg/dL Hemoglobin A1c > 14.0 H (4.5-6.2) % Lactic Acid (0.4-2.0) mmol/L Calcium 7.5 L (8.5-10.1) mg/dL Phosphorus (2.5-4.9) mg/dL Magnesium (1.8-2.4) mg/dL Total Bilirubin (0.2-1.0) mg/dL AST (15-37) U/L ALT (12-78) U/L Alkaline Phosphatase (46-116) U/L C-Reactive Protein (0.0-0.3) mg/dL Total Protein (6.4-8.2) g/dL Albumin (3.4-5.0) g/dL Globulin (2.3-3.5) g/dL Albumin/Globulin Ratio (1.2-2.2) HDL Cholesterol 22 L (40-60) mg/dL Urine Color (YELLOW) Urine Appearance (CLEAR) Urine pH (5.0-8.0) Ur Specific [place] (1.008-1.030) Urine Protein (NEGATIVE) mg/dL Urine Glucose (UA) (NEGATIVE) mg/dL Urine Ketones (NEGATIVE) mg/dL Urine Occult Blood (NEGATIVE) Urine Nitrite (NEGATIVE) Urine Bilirubin (NEGATIVE) Urine Urobilinogen (0.2-1.0) EU/dL Ur Leukocyte Esterase (NEGATIVE) Urine RBC (0-5) Urine WBC (0-5) Ur Epithelial Cells Amorphous Sediment Urine Bacteria Urine Mucus Ketones (NEGATIVE) 07/31/20 07/31/20 07/31/20 Range/Units 06:08 07:56 08:05 ABG Hemoglobin (13.5-18.0) g/dL ABG Oxyhemoglobin % ABG Carboxyhemoglobin (0.0-1.6) % ABG Methemoglobin % VBG pH (7.350-7.450) VBG pCO2 mm/Hg VBG pO2 mm/Hg VBG HCO3 mmol/L VBG Total CO2 mmol/L VBG O2 Saturation VBG O2 Content %vol VBG Base Excess mm/L O2 Delivery Device Sodium 137 L (140-148) mmol/L Potassium 4.2 (3.6-5.2) mmol/L Chloride 102 (100-108) mmol/L Carbon Dioxide 24 (21-32) mmol/L Anion Gap 15.2 H (5.0-14.0) mmol/L BUN 15 (7-18) mg/dL Creatinine 1.1 (0.8-1.3) mg/dL Est Cr Clr Drug Dosing 80.96 mL/min Estimated GFR (MDRD) > 60 (>60) Glucose 340 H (74-106) mg/dL POC Glucose 358 H (74-106) mg/dL Hemoglobin A1c (4.5-6.2) % Lactic Acid (0.4-2.0) mmol/L Calcium 8.1 L (8.5-10.1) mg/dL Phosphorus 3.0 (2.5-4.9) mg/dL Magnesium 1.8 (1.8-2.4) mg/dL Total Bilirubin (0.2-1.0) mg/dL AST (15-37) U/L ALT (12-78) U/L Alkaline Phosphatase (46-116) U/L C-Reactive Protein (0.0-0.3) mg/dL Total Protein (6.4-8.2) g/dL Albumin (3.4-5.0) g/dL Globulin (2.3-3.5) g/dL Albumin/Globulin Ratio (1.2-2.2) HDL Cholesterol (40-60) mg/dL Urine Color (YELLOW) Urine Appearance (CLEAR) Urine pH (5.0-8.0) Ur Specific [place] (1.008-1.030) Urine Protein (NEGATIVE) mg/dL Urine Glucose (UA) (NEGATIVE) mg/dL Urine Ketones (NEGATIVE) mg/dL Urine Occult Blood (NEGATIVE) Urine Nitrite (NEGATIVE) Urine Bilirubin (NEGATIVE) Urine Urobilinogen (0.2-1.0) EU/dL Ur Leukocyte Esterase (NEGATIVE) Urine RBC (0-5) Urine WBC (0-5) Ur Epithelial Cells Amorphous Sediment Urine Bacteria Urine Mucus Ketones (NEGATIVE) 06/25/21 06/25/21 06/25/21 Range/Units 11:55 16:47 21:15 ABG Hemoglobin (13.5-18.0) g/dL ABG Oxyhemoglobin % ABG Carboxyhemoglobin (0.0-1.6) % ABG Methemoglobin % VBG pH (7.350-7.450) VBG pCO2 mm/Hg VBG pO2 mm/Hg VBG HCO3 mmol/L VBG Total CO2 mmol/L VBG O2 Saturation VBG O2 Content %vol VBG Base Excess mm/L O2 Delivery Device Sodium (140-148) mmol/L Potassium (3.6-5.2) mmol/L Chloride (100-108) mmol/L Carbon Dioxide (21-32) mmol/L Anion Gap (5.0-14.0) mmol/L BUN (7-18) mg/dL Creatinine (0.8-1.3) mg/dL Est Cr Clr Drug Dosing mL/min Estimated GFR (MDRD) (>60) Glucose (74-106) mg/dL POC Glucose 352 H 328 H 370 H (74-106) mg/dL Hemoglobin A1c (4.5-6.2) % Lactic Acid (0.4-2.0) mmol/L Calcium (8.5-10.1) mg/dL Phosphorus (2.5-4.9) mg/dL Magnesium (1.8-2.4) mg/dL Total Bilirubin (0.2-1.0) mg/dL AST (15-37) U/L ALT (12-78) U/L Alkaline Phosphatase (46-116) U/L C-Reactive Protein (0.0-0.3) mg/dL Total Protein (6.4-8.2) g/dL Albumin (3.4-5.0) g/dL Globulin (2.3-3.5) g/dL Albumin/Globulin Ratio (1.2-2.2) HDL Cholesterol (40-60) mg/dL Urine Color (YELLOW) Urine Appearance (CLEAR) Urine pH (5.0-8.0) Ur Specific [place] (1.008-1.030) Urine Protein (NEGATIVE) mg/dL Urine Glucose (UA) (NEGATIVE) mg/dL Urine Ketones (NEGATIVE) mg/dL Urine Occult Blood (NEGATIVE) Urine Nitrite (NEGATIVE) Urine Bilirubin (NEGATIVE) Urine Urobilinogen (0.2-1.0) EU/dL Ur Leukocyte Esterase (NEGATIVE) Urine RBC (0-5) Urine WBC (0-5) Ur Epithelial Cells Amorphous Sediment Urine Bacteria Urine Mucus Ketones (NEGATIVE) Med Orders - Current: Current Medications Acetaminophen (Acetaminophen 500 Mg Tab) 1,000 mg PO Q4H PRN PRN Reason: Pain Last Admin: 07/31/20 16:44 Dose: 1,000 mg Documented by: Carvedilol (Carvedilol 12.5 Mg Tab) 25 mg PO BID [facility] Last Admin: 07/31/20 21:20 Dose: 25 mg Documented by: Dextrose/Water (50% Dextrose In Water 50 Ml Syringe) 50 ml IVPUSH ASDIRECTED PRN PRN Reason: Hypoglycemia Famotidine (Famotidine 20 Mg Tab) 40 mg PO BEDTIME [facility] Last Admin: 07/31/20 21:20 Dose: 40 mg Documented by: Furosemide (Furosemide 20 Mg Tab) 20 mg PO DAILY [facility] Last Admin: 07/31/20 21:21 Dose: 20 mg Documented by: Glucagon (Glucagon,Human Recombinant 1 Mg Vial) 1 mg IM ASDIRECTED PRN PRN Reason: Hypoglycemia Ceftriaxone Sodium 2 gm/ (Sodium Chloride) 50 mls @ 100 mls/hr IV Q24H [facility] Last Admin: 07/31/20 01:14 Dose: 100 mls/hr Documented by: Insulin Glargine (Insulin Glargine,Human Rec. Analog 100 Units/Ml 3 Ml Pen) 35 units SUBCUT BEDTIME [facility] Last Admin: 07/31/20 21:22 Dose: 35 units Documented by: Insulin Human Lispro (Insulin Lispro 100 Unit/Ml 3 Ml Kwikpen) 0 unit SUBCUT ASDIRECTED [facility]; Protocol Last Admin: 07/31/20 21:22 Dose: 5 units Documented by: Labetalol HCl (Labetalol 20 Mg/4 Ml Syringe) 10 mg IVPUSH Q4H PRN; Protocol PRN Reason: Hypertension Last Admin: 07/31/20 21:21 Dose: 10 mg Documented by: Magnesium Oxide (Magnesium Oxide 400 Mg Tab) 400 mg PO QPM [facility] Last Admin: 07/31/20 16:44 Dose: 400 mg Documented by: Rivaroxaban (Rivaroxaban 10 Mg Tab) 20 mg PO QPM [facility] Last Admin: 07/31/20 16:44 Dose: 20 mg Documented by: Rosuvastatin Calcium (Rosuvastatin 10 Mg Tab) 40 mg PO QPM [facility] Last Admin: 07/31/20 16:43 Dose: 40 mg Documented by: Spironolactone (Spironolactone 25 Mg Tab) 25 mg PO DAILY [facility] Last Admin: 07/31/20 08:03 Dose: 25 mg Documented by: Discontinued Medications Calcium Carbonate/Glycine (Calcium Carbonate 500 Mg Tab.Chew) 1,000 mg PO ONETIME ONE Stop: 07/31/20 00:12 Last Admin: 07/31/20 00:44 Dose: 1,000 mg Documented by: Calcium Gluconate (Calcium Gluconate 10% 1 Gm/10 Ml Sdv) 1 gm IVPUSH ONETIME ONE Stop: 07/30/20 21:57 Last Admin: 07/30/20 22:26 Dose: 1 gm Documented by: Dextrose/Water (50% Dextrose In Water 50 Ml Syringe) 50 ml IVPUSH ASDIRECTED P RN PRN Reason: Hypoglycemia Dextrose/Water (50% Dextrose In Water 50 Ml Syringe) 50 ml IVPUSH ONETIME PRN PRN Reason: Blood Glucose Glucagon (Glucagon,Human Recombinant 1 Mg Vial) 1 mg IM ASDIRECTED PRN PRN Reason: Hypoglycemia Sodium Chloride (Normal Saline) 1,000 mls @ 999 mls/hr IV ASDIRECTED [facility] Last Admin: 07/30/20 22:07 Dose: 999 mls/hr Documented by: Insulin Regular in 0.9 % NACL (Myxredlin In Ns 100 Unit/100 Ml) 100 mls @ 9.67 mls/hr IV ASDIRECTED [facility]; Protocol Last Infusion: 07/31/20 02:04 Dose: 0.01 units/kg/hr, 1 mls/hr Documented by: Magnesium Sulfate (Magnesium Sulfate In Water 2 Gm/50 Ml) 2 gm in 50 mls @ 25 mls/hr IV ONETIME PRN PRN Reason: low magnesium Potassium Chloride 20 meq/ (Premix) 100 mls @ 50 mls/hr IV Q2H PRN PRN Reason: Hypokalemia Last Admin: 07/31/20 02:27 Dose: 50 mls/hr Documented by: Potassium Chloride 20 meq/ (Premix) 100 mls @ 50 mls/hr IV ONETIME PRN PRN Reason: If serum between 3.5 and 3.9 Last Admin: 07/31/20 05:10 Dose: 50 mls/hr Documented by: Potassium Chloride 20 meq/ (Premix) 100 mls @ 50 mls/hr IV Q2H PRN PRN Reason: Hypokalemia Sodium Chloride (Normal Saline) 1,000 mls @ 100 mls/hr IV ASDIRECTED [facility] Sodium Chloride (Normal Saline) 1,000 mls @ 0 mls/hr IV BOLUS ONE Stop: 07/31/20 00:11 Last Admin: 07/31/20 00:15 Dose: 999 mls/hr Documented by: Dextrose/Sodium Chloride (Dextrose 5%-1/2 Ns) 1,000 mls @ 100 mls/hr IV ASDIRECTED [facility] Last Admin: 07/31/20 01:15 Dose: 100 mls/hr Documented by: Lidocaine HCl (Xylocaine-Mpf 1%) Confirm Administered Dose 2 mls @ as directed .ROUTE .STK-MED ONE Stop: 07/31/20 05:05 Last Admin: 07/31/20 05:12 Dose: Not Given Documented by: Sodium Chloride (Normal Saline) 1,000 mls @ 100 mls/hr IV ASDIRECTED [facility] Last Admin: 07/31/20 17:35 Dose: 100 mls/hr Documented by: Insulin Glargine (Insulin Glargine,Human Rec. Analog 100 Units/Ml 3 Ml Pen) 30 units SUBCUT BEDTIME ONE Stop: 07/31/20 01:09 Last Admin: 07/31/20 01:26 Dose: 30 units Documented by: Insulin Human Lispro (Insulin Lispro 100 Unit/Ml 3 Ml Kwikpen) 0 unit SUBCUT ASDIRECTED [facility]; Protocol Last Admin: 07/31/20 08:02 Dose: 5 units Documented by: Insulin Human Lispro (Insulin Lispro 100 Unit/Ml 3 Ml Kwikpen) 0 unit SUBCUT TIDMEALS [facility]; Protocol Insulin Human Regular (Insulin Regular, Human 100 Units/Ml 3 Ml Vial) 15 unit IVPUSH ONETIME ONE Stop: 07/30/20 21:54 Last Admin: 07/30/20 22:03 Dose: 15 units Documented by: Lidocaine HCl (Lidocaine 1% 5 Ml Sdv) 2 ml INJECT ONETIME ONE Stop: 07/31/20 00:33 Last Admin: 07/31/20 00:43 Dose: 2 ml Documented by: Lidocaine HCl (Lidocaine 1% 5 Ml Sdv) Confirm Administered Dose 5 ml .ROUTE .STK-MED ONE Stop: 07/31/20 00:35 Last Admin: 07/31/20 00:44 Dose: Not Given Documented by: Lidocaine HCl (Lidocaine 1% 50 Ml Mdv) 2 ml INJECT ONETIME ONE Stop: 07/31/20 05:07 Last Admin: 07/31/20 05:13 Dose: 2 ml Documented by: Magnesium Oxide (Magnesium Oxide 400 Mg Tab) 400 mg PO WITHLUNCH [facility]ENCER Rivaroxaban (Rivaroxaban 10 Mg Tab) 20 mg PO WITHLUNCH SPENCER Rosuvastatin Calcium (Rosuvastatin 10 Mg Tab) 40 mg PO WITHLUNCH [facility] Sodium Chloride (Sodium Chloride 0.9% 10 Ml Syringe) 10 ml FLUSH ASDIRECTED PRN PRN Reason: Keep Vein Open Last Admin: 07/30/20 22:13 Dose: 10 ml Documented by: - Exam General: Alert, Oriented, Cooperative, No Acute Distress HEENT: Pupils Equal, EOMI, Mucous Membr. Moist/[place] Lungs: Clear to Auscultation, Normal Respiratory Effort Cardiovascular: Regular Rate, Regular Rhythm GI/Abdominal Exam: Normal Bowel Sounds, Soft, Non-Tender, No Distention Extremities: Normal Inspection, No Pedal Edema Skin: Warm, Dry, Intact Neurological: No New Focal Deficit Psy/Mental Status: Alert, Normal Affect, Normal Mood - Patient Data Lab Results Last 24 hrs: Laboratory Results - last 24 hr 07/30/20 07/30/20 07/30/20 Range/Units 20:38 20:38 21:52 ABG Hemoglobin (13.5-18.0) g/dL ABG Oxyhemoglobin % ABG Carboxyhemoglobin (0.0-1.6) % ABG Methemoglobin % VBG pH (7.350-7.450) VBG pCO2 mm/Hg VBG pO2 mm/Hg VBG HCO3 mmol/L VBG Total CO2 mmol/L VBG O2 Saturation VBG O2 Content %vol VBG Base Excess mm/L O2 Delivery Device Sodium 122 L (140-148) mmol/L Potassium 4.4 (3.6-5.2) mmol/L Chloride 88 L (100-108) mmol/L Carbon Dioxide 22 (21-32) mmol/L Anion Gap 16.4 H (5.0-14.0) mmol/L BUN 20 H (7-18) mg/dL Creatinine 1.5 H (0.8-1.3) mg/dL Est Cr Clr Drug Dosing 59.37 mL/min Estimated GFR (MDRD) 51 L (>60) Glucose 835 H* (74-106) mg/dL POC Glucose (74-106) mg/dL Hemoglobin A1c (4.5-6.2) % Lactic Acid 0.0 L (0.4-2.0) mmol/L Calcium 7.9 L (8.5-10.1) mg/dL Phosphorus (2.5-4.9) mg/dL Magnesium (1.8-2.4) mg/dL Total Bilirubin 1.0 D (0.2-1.0) mg/dL AST 39 H D (15-37) U/L ALT 58 D (12-78) U/L Alkaline Phosphatase 174 H (46-116) U/L C-Reactive Protein (0.0-0.3) mg/dL Total Protein 6.4 (6.4-8.2) g/dL Albumin 3.4 (3.4-5.0) g/dL Globulin 3.0 (2.3-3.5) g/dL Albumin/Globulin Ratio 1.1 L (1.2-2.2) HDL Cholesterol (40-60) mg/dL Urine Color (YELLOW) Urine Appearance (CLEAR) Urine pH (5.0-8.0) Ur Specific [place] (1.008-1.030) Urine Protein (NEGATIVE) mg/dL Urine Glucose (UA) (NEGATIVE) mg/dL Urine Ketones (NEGATIVE) mg/dL Urine Occult Blood (NEGATIVE) Urine Nitrite (NEGATIVE) Urine Bilirubin (NEGATIVE) Urine Urobilinogen (0.2-1.0) EU/dL Ur Leukocyte Esterase (NEGATIVE) Urine RBC (0-5) Urine WBC (0-5) Ur Epithelial Cells Amorphous Sediment Urine Bacteria Urine Mucus Ketones Small H (NEGATIVE) 07/30/20 07/30/20 07/30/20 Range/Units 21:56 21:57 22:02 ABG Hemoglobin 13.9 (13.5-18.0) g/dL ABG Oxyhemoglobin 83.0 % ABG Carboxyhemoglobin 2.4 H (0.0-1.6) % ABG Methemoglobin 1.6 % VBG pH 7.394 (7.350-7.450) VBG pCO2 41.3 mm/Hg VBG pO2 52.3 mm/Hg VBG HCO3 24.7 mmol/L VBG Total CO2 21.9 mmol/L VBG O2 Saturation 86.5 VBG O2 Content 16.2 %vol VBG Base Excess 0.3 mm/L O2 Delivery Device Room air Sodium (140-148) mmol/L Potassium (3.6-5.2) mmol/L Chloride (100-108) mmol/L Carbon Dioxide (21-32) mmol/L Anion Gap (5.0-14.0) mmol/L BUN (7-18) mg/dL Creatinine (0.8-1.3) mg/dL Est Cr Clr Drug Dosing mL/min Estimated GFR (MDRD) (>60) Glucose (74-106) mg/dL POC Glucose (74-106) mg/dL Hemoglobin A1c (4.5-6.2) % Lactic Acid (0.4-2.0) mmol/L Calcium (8.5-10.1) mg/dL Phosphorus (2.5-4.9) mg/dL Magnesium 1.8 (1.8-2.4) mg/dL Total Bilirubin (0.2-1.0) mg/dL AST (15-37) U/L ALT (12-78) U/L Alkaline Phosphatase (46-116) U/L C-Reactive Protein (0.0-0.3) mg/dL Total Protein (6.4-8.2) g/dL Albumin (3.4-5.0) g/dL Globulin (2.3-3.5) g/dL Albumin/Globulin Ratio (1.2-2.2) HDL Cholesterol (40-60) mg/dL Urine Color Yellow (YELLOW) Urine Appearance Clear (CLEAR) Urine pH 6.0 (5.0-8.0) Ur Specific [place] 1.010 (1.008-1.030) Urine Protein Negative (NEGATIVE) mg/dL Urine Glucose (UA) 500 H (NEGATIVE) mg/dL Urine Ketones 15 H (NEGATIVE) mg/dL Urine Occult Blood Negative (NEGATIVE) Urine Nitrite Negative (NEGATIVE) Urine Bilirubin Negative (NEGATIVE) Urine Urobilinogen 0.2 (0.2-1.0) EU/dL Ur Leukocyte Esterase Negative (NEGATIVE) Urine RBC Not seen (0-5) Urine WBC Not seen (0-5) Ur Epithelial Cells Rare Amorphous Sediment Not seen Urine Bacteria Rare Urine Mucus Not seen Ketones (NEGATIVE) 07/30/20 07/30/20 07/30/20 Range/Units 22:53 23:50 23:56 ABG Hemoglobin (13.5-18.0) g/dL ABG Oxyhemoglobin % ABG Carboxyhemoglobin (0.0-1.6) % ABG Methemoglobin % VBG pH (7.350-7.450) VBG pCO2 mm/Hg VBG pO2 mm/Hg VBG HCO3 mmol/L VBG Total CO2 mmol/L VBG O2 Saturation VBG O2 Content %vol VBG Base Excess mm/L O2 Delivery Device Sodium 137 L (140-148) mmol/L Potassium 3.3 L (3.6-5.2) mmol/L Chloride 100 (100-108) mmol/L Carbon Dioxide 26 (21-32) mmol/L Anion Gap 14.3 H (5.0-14.0) mmol/L BUN 19 H (7-18) mg/dL Creatinine 1.2 (0.8-1.3) mg/dL Est Cr Clr Drug Dosing 74.21 mL/min Estimated GFR (MDRD) > 60 (>60) Glucose 455 H* 240 H (74-106) mg/dL POC Glucose (74-106) mg/dL Hemoglobin A1c (4.5-6.2) % Lactic Acid (0.4-2.0) mmol/L Calcium 8.0 L (8.5-10.1) mg/dL Phosphorus 3.5 (2.5-4.9) mg/dL Magnesium 1.8 (1.8-2.4) mg/dL Total Bilirubin (0.2-1.0) mg/dL AST (15-37) U/L ALT (12-78) U/L Alkaline Phosphatase (46-116) U/L C-Reactive Protein (0.0-0.3) mg/dL Total Protein (6.4-8.2) g/dL Albumin (3.4-5.0) g/dL Globulin (2.3-3.5) g/dL Albumin/Globulin Ratio (1.2-2.2) HDL Cholesterol (40-60) mg/dL Urine Color (YELLOW) Urine Appearance (CLEAR) Urine pH (5.0-8.0) Ur Specific [place] (1.008-1.030) Urine Protein (NEGATIVE) mg/dL Urine Glucose (UA) (NEGATIVE) mg/dL Urine Ketones (NEGATIVE) mg/dL Urine Occult Blood (NEGATIVE) Urine Nitrite (NEGATIVE) Urine Bilirubin (NEGATIVE) Urine Urobilinogen (0.2-1.0) EU/dL Ur Leukocyte Esterase (NEGATIVE) Urine RBC (0-5) Urine WBC (0-5) Ur Epithelial Cells Amorphous Sediment Urine Bacteria Urine Mucus Ketones (NEGATIVE) 07/31/20 07/31/20 07/31/20 Range/Units 01:05 02:03 03:05 ABG Hemoglobin (13.5-18.0) g/dL ABG Oxyhemoglobin % ABG Carboxyhemoglobin (0.0-1.6) % ABG Methemoglobin % VBG pH (7.350-7.450) VBG pCO2 mm/Hg VBG pO2 mm/Hg VBG HCO3 mmol/L VBG Total CO2 mmol/L VBG O2 Saturation VBG O2 Content %vol VBG Base Excess mm/L O2 Delivery Device Sodium (140-148) mmol/L Potassium (3.6-5.2) mmol/L Chloride (100-108) mmol/L Carbon Dioxide (21-32) mmol/L Anion Gap (5.0-14.0) mmol/L BUN (7-18) mg/dL Creatinine (0.8-1.3) mg/dL Est Cr Clr Drug Dosing mL/min Estimated GFR (MDRD) (>60) Glucose (74-106) mg/dL POC Glucose 153 H 109 H 206 H (74-106) mg/dL Hemoglobin A1c (4.5-6.2) % Lactic Acid (0.4-2.0) mmol/L Calcium (8.5-10.1) mg/dL Phosphorus (2.5-4.9) mg/dL Magnesium (1.8-2.4) mg/dL Total Bilirubin (0.2-1.0) mg/dL AST (15-37) U/L ALT (12-78) U/L Alkaline Phosphatase (46-116) U/L C-Reactive Protein (0.0-0.3) mg/dL Total Protein (6.4-8.2) g/dL Albumin (3.4-5.0) g/dL Globulin (2.3-3.5) g/dL Albumin/Globulin Ratio (1.2-2.2) HDL Cholesterol (40-60) mg/dL Urine Color (YELLOW) Urine Appearance (CLEAR) Urine pH (5.0-8.0) Ur Specific [place] (1.008-1.030) Urine Protein (NEGATIVE) mg/dL Urine Glucose (UA) (NEGATIVE) mg/dL Urine Ketones (NEGATIVE) mg/dL Urine Occult Blood (NEGATIVE) Urine Nitrite (NEGATIVE) Urine Bilirubin (NEGATIVE) Urine Urobilinogen (0.2-1.0) EU/dL Ur Leukocyte Esterase (NEGATIVE) Urine RBC (0-5) Urine WBC (0-5) Ur Epithelial Cells Amorphous Sediment Urine Bacteria Urine Mucus Ketones (NEGATIVE) 07/31/20 07/31/20 07/31/20 Range/Units 04:20 04:20 04:20 ABG Hemoglobin (13.5-18.0) g/dL ABG Oxyhemoglobin % ABG Carboxyhemoglobin (0.0-1.6) % ABG Methemoglobin % VBG pH (7.350-7.450) VBG pCO2 mm/Hg VBG pO2 mm/Hg VBG HCO3 mmol/L VBG Total CO2 mmol/L VBG O2 Saturation VBG O2 Content %vol VBG Base Excess mm/L O2 Delivery Device Sodium 137 L (140-148) mmol/L Potassium 3.9 (3.6-5.2) mmol/L Chloride 103 (100-108) mmol/L Carbon Dioxide 25 (21-32) mmol/L Anion Gap 12.9 (5.0-14.0) mmol/L BUN 16 (7-18) mg/dL Creatinine 1.2 (0.8-1.3) mg/dL Est Cr Clr Drug Dosing 74.21 mL/min Estimated GFR (MDRD) > 60 (>60) Glucose 300 H (74-106) mg/dL POC Glucose (74-106) mg/dL Hemoglobin A1c > 14.0 H (4.5-6.2) % Lactic Acid (0.4-2.0) mmol/L Calcium 7.5 L (8.5-10.1) mg/dL Phosphorus (2.5-4.9) mg/dL Magnesium (1.8-2.4) mg/dL Total Bilirubin (0.2-1.0) mg/dL AST (15-37) U/L ALT (12-78) U/L Alkaline Phosphatase (46-116) U/L C-Reactive Protein (0.0-0.3) mg/dL Total Protein (6.4-8.2) g/dL Albumin (3.4-5.0) g/dL Globulin (2.3-3.5) g/dL Albumin/Globulin Ratio (1.2-2.2) HDL Cholesterol 22 L (40-60) mg/dL Urine Color (YELLOW) Urine Appearance (CLEAR) Urine pH (5.0-8.0) Ur Specific [place] (1.008-1.030) Urine Protein (NEGATIVE) mg/dL Urine Glucose (UA) (NEGATIVE) mg/dL Urine Ketones (NEGATIVE) mg/dL Urine Occult Blood (NEGATIVE) Urine Nitrite (NEGATIVE) Urine Bilirubin (NEGATIVE) Urine Urobilinogen (0.2-1.0) EU/dL Ur Leukocyte Esterase (NEGATIVE) Urine RBC (0-5) Urine WBC (0-5) Ur Epithelial Cells Amorphous Sediment Urine Bacteria Urine Mucus Ketones (NEGATIVE) 07/31/20 07/31/20 07/31/20 Range/Units 06:08 07:56 08:05 ABG Hemoglobin (13.5-18.0) g/dL ABG Oxyhemoglobin % ABG Carboxyhemoglobin (0.0-1.6) % ABG Methemoglobin % VBG pH (7.350-7.450) VBG pCO2 mm/Hg VBG pO2 mm/Hg VBG HCO3 mmol/L VBG Total CO2 mmol/L VBG O2 Saturation VBG O2 Content %vol VBG Base Excess mm/L O2 Delivery Device Sodium 137 L (140-148) mmol/L Potassium 4.2 (3.6-5.2) mmol/L Chloride 102 (100-108) mmol/L Carbon Dioxide 24 (21-32) mmol/L Anion Gap 15.2 H (5.0-14.0) mmol/L BUN 15 (7-18) mg/dL Creatinine 1.1 (0.8-1.3) mg/dL Est Cr Clr Drug Dosing 80.96 mL/min Estimated GFR (MDRD) > 60 (>60) Glucose 340 H (74-106) mg/dL POC Glucose 358 H (74-106) mg/dL Hemoglobin A1c (4.5-6.2) % Lactic Acid (0.4-2.0) mmol/L Calcium 8.1 L (8.5-10.1) mg/dL Phosphorus 3.0 (2.5-4.9) mg/dL Magnesium 1.8 (1.8-2.4) mg/dL Total Bilirubin (0.2-1.0) mg/dL AST (15-37) U/L ALT (12-78) U/L Alkaline Phosphatase (46-116) U/L C-Reactive Protein (0.0-0.3) mg/dL Total Protein (6.4-8.2) g/dL Albumin (3.4-5.0) g/dL Globulin (2.3-3.5) g/dL Albumin/Globulin Ratio (1.2-2.2) HDL Cholesterol (40-60) mg/dL Urine Color (YELLOW) Urine Appearance (CLEAR) Urine pH (5.0-8.0) Ur Specific [place] (1.008-1.030) Urine Protein (NEGATIVE) mg/dL Urine Glucose (UA) (NEGATIVE) mg/dL Urine Ketones (NEGATIVE) mg/dL Urine Occult Blood (NEGATIVE) Urine Nitrite (NEGATIVE) Urine Bilirubin (NEGATIVE) Urine Urobilinogen (0.2-1.0) EU/dL Ur Leukocyte Esterase (NEGATIVE) Urine RBC (0-5) Urine WBC (0-5) Ur Epithelial Cells Amorphous Sediment Urine Bacteria Urine Mucus Ketones (NEGATIVE) 07/31/20 07/31/20 07/31/20 Range/Units 11:55 16:47 21:15 ABG Hemoglobin (13.5-18.0) g/dL ABG Oxyhemoglobin % ABG Carboxyhemoglobin (0.0-1.6) % ABG Methemoglobin % VBG pH (7.350-7.450) VBG pCO2 mm/Hg VBG pO2 mm/Hg VBG HCO3 mmol/L VBG Total CO2 mmol/L VBG O2 Saturation VBG O2 Content %vol VBG Base Excess mm/L O2 Delivery Device Sodium (140-148) mmol/L Potassium (3.6-5.2) mmol/L Chloride (100-108) mmol/L Carbon Dioxide (21-32) mmol/L Anion Gap (5.0-14.0) mmol/L BUN (7-18) mg/dL Creatinine (0.8-1.3) mg/dL Est Cr Clr Drug Dosing mL/min Estimated GFR (MDRD) (>60) Glucose (74-106) mg/dL POC Glucose 352 H 328 H 370 H (74-106) mg/dL Hemoglobin A1c (4.5-6.2) % Lactic Acid (0.4-2.0) mmol/L Calcium (8.5-10.1) mg/dL Phosphorus (2.5-4.9) mg/dL Magnesium (1.8-2.4) mg/dL Total Bilirubin (0.2-1.0) mg/dL AST (15-37) U/L ALT (12-78) U/L Alkaline Phosphatase (46-116) U/L C-Reactive Protein (0.0-0.3) mg/dL Total Protein (6.4-8.2) g/dL Albumin (3.4-5.0) g/dL Globulin (2.3-3.5) g/dL Albumin/Globulin Ratio (1.2-2.2) HDL Cholesterol (40-60) mg/dL Urine Color (YELLOW) Urine Appearance (CLEAR) Urine pH (5.0-8.0) Ur Specific [place] (1.008-1.030) Urine Protein (NEGATIVE) mg/dL Urine Glucose (UA) (NEGATIVE) mg/dL Urine Ketones (NEGATIVE) mg/dL Urine Occult Blood (NEGATIVE) Urine Nitrite (NEGATIVE) Urine Bilirubin (NEGATIVE) Urine Urobilinogen (0.2-1.0) EU/dL Ur Leukocyte Esterase (NEGATIVE) Urine RBC (0-5) Urine WBC (0-5) Ur Epithelial Cells Amorphous Sediment Urine Bacteria Urine Mucus Ketones (NEGATIVE) Result Diagrams: 07/30/20 20:38 07/31/20 08:05 Sepsis Event Note - Evaluation Sepsis Screening Result: No Definite Risk - Focused Exam Vital Signs: Vital Signs Temp Pulse Pulse Resp BP BP Pulse Ox 07/31/20 21:20 74 181/122 H 07/31/20 20:00 97.9 F 73 23 H 193/115 H 97 07/31/20 17:58 16 186/115 H 07/31/20 16:00 97.8 F 12 186/112 H 98 07/31/20 14:00 12 135/80 07/31/20 12:00 97.8 F 12 164/108 H 96 07/31/20 10:00 14 160/101 H 96 - Problem List & Annotations (1) Hyperosmolar hyperglycemic state (HHS) SNOMED Code(s): 750495706 Code(s): E11.00 - TYPE 2 DIAB W HYPROSM W/O NONKET HYPRGLY-HYPROS COMA (NKHHC); E11.65 - TYPE 2 DIABETES MELLITUS WITH HYPERGLYCEMIA Status: Acute Current Visit: Yes (2) Dehydration SNOMED Code(s): 77053188 Code(s): E86.0 - DEHYDRATION Status: Acute Current Visit: Yes (3) Diabetes mellitus type II, uncontrolled SNOMED Code(s): 159715728, 759543386 Code(s): E11.65 - TYPE 2 DIABETES MELLITUS WITH HYPERGLYCEMIA Status: Acute Priority: High Current Visit: Yes Qualifiers: Glycemic state: with hyperglycemia Qualified Code(s): E11.65 - Type 2 diabetes mellitus with hyperglycemia (4) Chronic ulcer of left leg SNOMED Code(s): 57575006 Code(s): L97.929 - NON-PRS CHRONIC ULC UNSP PRT OF L LOW LEG W UNSP SEVERITY Status: Chronic Priority: Medium Current Visit: Yes Qualifiers: Non-pressure ulcer stage: limited to breakdown of skin Qualified Code(s): L97.921 - Non-pressure chronic ulcer of unspecified part of left lower leg limited to breakdown of skin - Problem List Review Problem List Initiated/Reviewed/Updated: Yes - My Orders Last 24 Hours: My Active Orders 07/30/20 23:17 Admission Status [Patient Status] [ADT] Routine 07/30/20 23:56 Vital Signs [RC] Q2H 07/31/20 01:00 cefTRIAXone [Rocephin] 2 gm Sodium Chloride 0.9% [Normal Saline] 50 ml IV Q24H 07/31/20 01:07 Dextrose 50% in Water 50 ml IVPUSH ASDIRECTED PRN Glucagon,Human Recombinant [GlucaGen] 1 mg IM ASDIRECTED PRN 07/31/20 01:14 Acetaminophen [Tylenol Extra Strength] 1,000 mg PO Q4H PRN 07/31/20 09:00 Spironolactone [Aldactone] 25 mg PO DAILY carvediloL [Coreg] 25 mg PO BID 07/31/20 Lunch Heart Healthy Diet [DIET] Insulin Lispro [HumaLOG] See Protocol SUBCUT ASDIRECTED 07/31/20 17:00 Magnesium Oxide 400 mg PO QPM Rivaroxaban [Xarelto] 20 mg PO QPM Rosuvastatin [Crestor] 40 mg PO QPM 07/31/20 20:57 Labetalol [Normodyne] 10 mg IVPUSH Q4H PRN 07/31/20 21:00 Famotidine [Pepcid] 40 mg PO BEDTIME Furosemide [Lasix] 20 mg PO DAILY Insulin Glarg,Human.Rec.Analog [LantUS Solostar] 35 units SUBCUT BEDTIME 08/01/20 05:00 BASIC METABOLIC PANEL,BMP [CHEM] Routine CBC W/O DIFF,HEMOGRAM [HEME] Routine CHOLESTEROL LDL DIRECT [CHEM] Routine CHOLESTEROL TOTAL [CHEM] Routine TRIGLYCERIDES [CHEM] Routine - Plan Plan:: Hyperosmolar hyperglycemic state-resolved -He is successfully out of this state and we will return to usual glucose manag ement Uncontrolled diabetes type 2 -Pending A1c -Lantus 30 units at bedtime and high-dose sliding scale insulin -We are still having blood sugars in the 300s and will escalate accordingly Left leg ulceration with possible cellulitis-3 x 2 cm -Increasing pain over the past 3 days there is concern for cellulitis, the area is red however he also has extensive scarring due to skin grafting in that area 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 -Will be started on ceftriaxone IV -His white blood cells are not elevated and he is not showing signs of sepsis, he does begin to show signs of sepsis or white blood cell elevation we will get blood cultures Dehydration- improved, patient continues to drink excessive amounts of water despite having moist membranes -Monitoring basic metabolic panel and giving IV fluids as above Essential hypertension versus heart disease -Restart home meds of carvedilol 25 mg twice a day, spironolactone 25 mg daily -We are getting elevated blood pressures so furosemide was restarted. He also has labetalol as needed for systolic blood pressures greater than 180 and diastolic blood pressures greater than 100 History of recurrent blood clots on chronic anticoagulation -Continue home Rivaroxaban GERD -He was given Tums for stomach upset -Restart home famotidine CODE STATUS: Full code VTE prophylaxis: Will be on home rivaroxaban GI prophylaxis: Will be on home famotidine Plan: We are still working on glucose control with some glucose above 300, we are also working on blood pressure control with some blood pressures above 180. He will not be able to leave until both of these parameters are met. Otherwise he is feeling well so we will just get his values under control. The anterior leg is improving and he is having less leg pain, we will continue doing IV antibiotics. Disposition: Will most likely go home with self-care after his stay Rosibel Watkins, DO
[2020-08-01] MEDS: cefTRIAXone 2 GM in Sodium Chloride 0.9% 50 ML IV SCH (01:04)
[2020-08-01] MEDS: Furosemide 20 MG Tab PO SCH (08:21)
[2020-08-01] MEDS: Carvedilol 12.5 MG Tab PO SCH ×2 (08:21→21:26)
[2020-08-01] MEDS: Insulin Lispro 100 Unit/ML 3 ML KwikPen SUBCUT SCH ×3 (08:21→16:59)
[2020-08-01] MEDS: Spironolactone 25 MG Tab PO SCH (08:21)
[2020-08-01] MEDS: Rosuvastatin 10 MG Tab PO SCH (16:58)
[2020-08-01] MEDS: Rivaroxaban 10 MG Tab PO SCH (16:58)
[2020-08-01] MEDS: Magnesium Oxide 400 MG Tab PO SCH (16:58)
--- NOTE | 2020-08-01 17:04 | PCM.PN ---
- General Info Date of Service: 08/01/20 Admission Dx/Problem (Free Text): Admission Diagnosis/Problem Admission Diagnosis/Problem Hyperosmolar Hyperglycemic state, Cellulitis of the left leg Subjective Update: Mr. Philippe is doing significantly better today. He is having significantly elevated blood sugars but he also admitted to drinking chocolate milk and a 20 o unce soda today. He said that his left leg is feeling significantly better and no longer has any pain. He is feeling so good and having no symptoms that he wants to go home. I did explain to him that his blood sugars are still in the 300s to 400s and that I would like them significantly lower before he can go home. I would like to get him on a better insulin regimen before he goes because I want him to use it until he gets to his primary care physician. He did want to leave this afternoon and I expressed to him that if he did leave he would have to leave AMA and sign that we were not able to complete care and if anything happened to him we would not be liable. He stated that he understood and that he would be willing to stay another day to get his blood sugars under better control and possibly have an insulin regimen that would work for him. Functional Status: Reports: Tolerating Diet, Ambulating, Urinating. Denies: New Symptoms - Review of Systems General: Reports: No Symptoms. Denies: Fever, Weakness, Fatigue, Chills HEENT: Reports: No Symptoms. Denies: Headaches, Visual Changes Pulmonary: Reports: No Symptoms. Denies: Shortness of Breath, Cough Cardiovascular: Reports: No Symptoms. Denies: Chest Pain, Palpitations Gastrointestinal: Reports: No Symptoms. Denies: Abdominal Pain, Constipation, Diarrhea, Nausea, Vomiting Genitourinary: Reports: No Symptoms. Denies: Dysuria, Frequency, Urgency Musculoskeletal: Reports: No Symptoms. Denies: Leg Pain Skin: Reports: No Symptoms Neurological: Reports: No Symptoms. Denies: Dizziness, Headache Psychiatric: Reports: No Symptoms. Denies: Confusion - Patient Data Vitals - Most Recent: Last Vital Signs Temp 97 F 08/01/20 16:00 Pulse 81 08/01/20 16:00 Resp 14 08/01/20 16:00 BP 132/88 08/01/20 16:00 Pulse Ox 98 08/01/20 16:00 Weight - Most Recent: 224 lb I&O - Last 24 Hours: Intake & Output 08/01/20 08/01/20 08/01/20 06:59 14:59 22:59 Intake Total 650 600 Output Total 2200 2000 Balance -1550 -1400 Lab Results Last 24 Hours: Laboratory Results - last 24 hr 07/31/20 08/01/20 08/01/20 Range/Units 21:15 05:00 05:10 WBC 7.0 (4.5-11.0) K/uL RBC 4.84 (4.30-5.90) M/uL Hgb 13.6 (12.0-15.0) g/dL Hct 39.0 L (40.0-54.0) % MCV 81 (80-98) fL MCH 28 (27-31) pg MCHC 35 (32-36) % Plt Count 203 (150-400) K/uL Sodium (140-148) mmol/L Potassium (3.6-5.2) mmol/L Chloride (100-108) mmol/L Carbon Dioxide (21-32) mmol/L Anion Gap (5.0-14.0) mmol/L BUN (7-18) mg/dL Creatinine (0.8-1.3) mg/dL Est Cr Clr Drug Dosing mL/min Estimated GFR (MDRD) (>60) Glucose (74-106) mg/dL POC Glucose 370 H (74-106) mg/dL Calcium (8.5-10.1) mg/dL Triglycerides (15-150) mg/dL Cholesterol (0-200) mg/dL LDL Cholesterol Direct (0-100) mg/dL 08/01/20 08/01/20 08/01/20 Range/Units 08:06 11:44 16:56 WBC (4.5-11.0) K/uL RBC (4.30-5.90) M/uL Hgb (12.0-15.0) g/dL Hct (40.0-54.0) % MCV (80-98) fL MCH (27-31) pg MCHC (32-36) % Plt Count (150-400) K/uL Sodium (140-148) mmol/L Potassium (3.6-5.2) mmol/L Chloride (100-108) mmol/L Carbon Dioxide (21-32) mmol/L Anion Gap (5.0-14.0) mmol/L BUN (7-18) mg/dL Creatinine (0.8-1.3) mg/dL Est Cr Clr Drug Dosing mL/min Estimated GFR (MDRD) (>60) Glucose (74-106) mg/dL POC Glucose 307 H 407 H* 289 H (74-106) mg/dL Calcium (8.5-10.1) mg/dL Triglycerides (15-150) mg/dL Cholesterol (0-200) mg/dL LDL Cholesterol Direct (0-100) mg/dL Med Orders - Current: Current Medications Acetaminophen (Acetaminophen 500 Mg Tab) 1,000 mg PO Q4H PRN PRN Reason: Pain Last Admin: 07/31/20 16:44 Dose: 1,000 mg Documented by: Carvedilol (Carvedilol 12.5 Mg Tab) 25 mg PO BID [facility] Last Admin: 08/01/20 08:21 Dose: 25 mg Documented by: Dextrose/Water (50% Dextrose In Water 50 Ml Syringe) 50 ml IVPUSH ASDIRECTED PRN PRN Reason: Hypoglycemia Famotidine (Famotidine 20 Mg Tab) 40 mg PO BEDTIME [facility] Last Admin: 07/31/20 21:20 Dose: 40 mg Documented by: Furosemide (Furosemide 20 Mg Tab) 20 mg PO DAILY [facility] Last Admin: 08/01/20 08:21 Dose: 20 mg Documented by: Glucagon (Glucagon,Human Recombinant 1 Mg Vial) 1 mg IM ASDIRECTED PRN PRN Reason: Hypoglycemia Ceftriaxone Sodium 2 gm/ (Sodium Chloride) 50 mls @ 100 mls/hr IV Q24H [facility] Last Admin: 08/01/20 01:04 Dose: 100 mls/hr Documented by: Insulin Glargine (Insulin Glargine,Human Rec. Analog 100 Units/Ml 3 Ml Pen) 45 units SUBCUT BEDTIME [facility] Insulin Human Lispro (Insulin Lispro 100 Unit/Ml 3 Ml Kwikpen) 0 unit SUBCUT TIDMEALS [facility]; Protocol Last Admin: 08/01/20 11:46 Dose: 15 units Documented by: Labetalol HCl (Labetalol 20 Mg/4 Ml Syringe) 10 mg IVPUSH Q4H PRN; Protocol PRN Reason: Hypertension Last Admin: 07/31/20 21:21 Dose: 10 mg Documented by: Magnesium Oxide (Magnesium Oxide 400 Mg Tab) 400 mg PO QPM [facility] Last Admin: 07/31/20 16:44 Dose: 400 mg Documented by: Rivaroxaban (Rivaroxaban 10 Mg Tab) 20 mg PO QPM [facility] Last Admin: 07/31/20 16:44 Dose: 20 mg Documented by: Rosuvastatin Calcium (Rosuvastatin 10 Mg Tab) 40 mg PO QPM [facility] Last Admin: 07/31/20 16:43 Dose: 40 mg Documented by: Spironolactone (Spironolactone 25 Mg Tab) 25 mg PO DAILY [facility] Last Admin: 08/01/20 08:21 Dose: 25 mg Documented by: Discontinued Medications Calcium Carbonate/Glycine (Calcium Carbonate 500 Mg Tab.Chew) 1,000 mg PO ONETIME ONE Stop: 07/31/20 00:12 Last Admin: 07/31/20 00:44 Dose: 1,000 mg Documented by: Calcium Gluconate (Calcium Gluconate 10% 1 Gm/10 Ml Sdv) 1 gm IVPUSH ONETIME ONE Stop: 07/30/20 21:57 Last Admin: 07/30/20 22:26 Dose: 1 gm Documented by: Dextrose/Water (50% Dextrose In Water 50 Ml Syringe) 50 ml IVPUSH ASDIRECTED PRN PRN Reason: Hypoglycemia Dextrose/Water (50% Dextrose In Water 50 Ml Syringe) 50 ml IVPUSH ONETIME PRN PRN Reason: Blood Glucose Dextrose/Water (50% Dextrose In Water 50 Ml Syringe) 50 ml IVPUSH ASDIRECTED PRN PRN Reason: Hypoglycemia Glucagon (Glucagon,Human Recombinant 1 Mg Vial) 1 mg IM ASDIRECTED PRN PRN Reason: Hypoglycemia Glucagon (Glucagon,Human Recombinant 1 Mg Vial) 1 mg IM ASDIRECTED PRN PRN Reason: Hypoglycemia Sodium Chloride (Normal Saline) 1,000 mls @ 999 mls/hr IV ASDIRECTED [facility] Last Admin: 07/30/20 22:07 Dose: 999 mls/hr Documented by: Insulin Regular in 0.9 % NACL (Myxredlin In Ns 100 Unit/100 Ml) 100 mls @ 9.67 mls/hr IV ASDIRECTED [facility]; Protocol Last Infusion: 07/31/20 02:04 Dose: 0.01 units/kg/hr, 1 mls/hr Documented by: Magnesium Sulfate (Magnesium Sulfate In Water 2 Gm/50 Ml) 2 gm in 50 mls @ 25 mls/hr IV ONETIME PRN PRN Reason: low magnesium Potassium Chloride 20 meq/ (Premix) 100 mls @ 50 mls/hr IV Q2H PRN PRN Reason: Hypokalemia Last Admin: 07/31/20 02:27 Dose: 50 mls/hr Documented by: Potassium Chloride 20 meq/ (Premix) 100 mls @ 50 mls/hr IV ONETIME PRN PRN Reason: If serum between 3.5 and 3.9 Last Admin: 07/31/20 05:10 Dose: 50 mls/hr Documented by: Potassium Chloride 20 meq/ (Premix) 100 mls @ 50 mls/hr IV Q2H PRN PRN Reason: Hypokalemia Sodium Chloride (Normal Saline) 1,000 mls @ 100 mls/hr IV ASDIRECTED [facility] Sodium Chloride (Normal Saline) 1,000 mls @ 0 mls/hr IV BOLUS ONE Stop: 07/31/20 00:11 Last Admin: 07/31/20 00:15 Dose: 999 mls/hr Documented by: Dextrose/Sodium Chloride (Dextrose 5%-1/2 Ns) 1,000 mls @ 100 mls/hr IV ASDI RECTED [facility] Last Admin: 07/31/20 01:15 Dose: 100 mls/hr Documented by: Lidocaine HCl (Xylocaine-Mpf 1%) Confirm Administered Dose 2 mls @ as directed .ROUTE .STK-MED ONE Stop: 07/31/20 05:05 Last Admin: 07/31/20 05:12 Dose: Not Given Documented by: Sodium Chloride (Normal Saline) 1,000 mls @ 100 mls/hr IV ASDIRECTED [facility] Last Admin: 07/31/20 17:35 Dose: 100 mls/hr Documented by: Insulin Glargine (Insulin Glargine,Human Rec. Analog 100 Units/Ml 3 Ml Pen) 30 units SUBCUT BEDTIME ONE Stop: 07/31/20 01:09 Last Admin: 07/31/20 01:26 Dose: 30 units Documented by: Insulin Glargine (Insulin Glargine,Human Rec. Analog 100 Units/Ml 3 Ml Pen) 35 units SUBCUT BEDTIME [facility] Last Admin: 07/31/20 21:22 Dose: 35 units Documented by: Insulin Glargine (Insulin Glargine,Human Rec. Analog 100 Units/Ml 3 Ml Pen) 40 units SUBCUT BEDTIME [facility] Insulin Human Lispro (Insulin Lispro 100 Unit/Ml 3 Ml Kwikpen) 0 unit SUBCUT ASDIRECTED [facility]; Protocol Last Admin: 07/31/20 08:02 Dose: 5 units Documented by: Insulin Human Lispro (Insulin Lispro 100 Unit/Ml 3 Ml Kwikpen) 0 unit SUBCUT TIDMEALS [facility]; Protocol Insulin Human Lispro (Insulin Lispro 100 Unit/Ml 3 Ml Kwikpen) 0 unit SUBCUT ASDIRECTED [facility]; Protocol Last Admin: 07/31/20 21:22 Dose: 5 units Documented by: Insulin Human Regular (Insulin Regular, Human 100 Units/Ml 3 Ml Vial) 15 unit IVPUSH ONETIME ONE Stop: 07/30/20 21:54 Last Admin: 07/30/20 22:03 Dose: 15 units Documented by: Lidocaine HCl (Lidocaine 1% 5 Ml Sdv) 2 ml INJECT ONETIME ONE Stop: 07/31/20 00:33 Last Admin: 07/31/20 00:43 Dose: 2 ml Documented by: Lidocaine HCl (Lidocaine 1% 5 Ml Sdv) Confirm Administered Dose 5 ml .ROUTE .STK-MED ONE Stop: 07/31/20 00:35 Last Admin: 07/31/20 00:44 Dose: Not Given Documented by: Lidocaine HCl (Lidocaine 1% 50 Ml Mdv) 2 ml INJECT ONETIME ONE Stop: 07/31/20 05:07 Last Admin: 07/31/20 05:13 Dose: 2 ml Documented by: Magnesium Oxide (Magnesium Oxide 400 Mg Tab) 400 mg PO WITHLUNCH [facility] ([facility] 10 Mg Tab) [facility] Rosuvastatin Calcium (Rosuvastatin 10 Mg Tab) [facility] Sodium Chloride (Sodium Chloride 0.9% 10 Ml Syringe) 10 ml FLUSH ASDIRECTED PRN PRN Reason: Keep Vein Open Last Admin: 07/30/20 22:13 Dose: 10 ml Documented by: - Exam General: Alert, Oriented, Cooperative, No Acute Distress HEENT: Pupils Equal, EOMI, Mucous Membr. Moist/Bryan Lungs: Clear to Auscultation, Normal Respiratory Effort Cardiovascular: Regular Rate, Regular Rhythm GI/Abdominal Exam: Normal Bowel Sounds, Soft, Non-Tender, No Distention Back Exam: Normal Inspection Extremities: Non-Tender, No Pedal Edema Skin: Warm, Dry, Intact Wound/Incisions: No Drainage, Erythema Improving, Other (Area surrounding wound is no longer painful) Neurological: No New Focal Deficit Psy/Mental Status: Alert, Normal Affect, Normal Mood - Patient Data Lab Results Last 24 hrs: Laboratory Results - last 24 hr 07/31/20 08/01/20 08/01/20 Range/Units 21:15 05:00 05:10 WBC 7.0 (4.5-11.0) K/uL RBC 4.84 (4.30-5.90) M/uL Hgb 13.6 (12.0-15.0) g/dL Hct 39.0 L (40.0-54.0) % MCV 81 (80-98) fL MCH 28 (27-31) pg MCHC 35 (32-36) % Plt Count 203 (150-400) K/uL Sodium (140-148) mmol/L Potassium (3.6-5.2) mmol/L Chloride (100-108) mmol/L Carbon Dioxide (21-32) mmol/L Anion Gap (5.0-14.0) mmol/L BUN (7-18) mg/dL Creatinine (0.8-1.3) mg/dL Est Cr Clr Drug Dosing mL/min Estimated GFR (MDRD) (>60) Glucose (74-106) mg/dL POC Glucose 370 H (74-106) mg/dL Calcium (8.5-10.1) mg/dL Triglycerides (15-150) mg/dL Cholesterol (0-200) mg/dL LDL Cholesterol Direct (0-100) mg/dL 08/01/20 08/01/20 08/01/20 Range/Units 08:06 11:44 16:56 WBC (4.5-11.0) K/uL RBC (4.30-5.90) M/uL Hgb (12.0-15.0) g/dL Hct (40.0-54.0) % MCV (80-98) fL MCH (27-31) pg MCHC (32-36) % Plt Count (150-400) K/uL Sodium (140-148) mmol/L Potassium (3.6-5.2) mmol/L Chloride (100-108) mmol/L Carbon Dioxide (21-32) mmol/L Anion Gap (5.0-14.0) mmol/L BUN (7-18) mg/dL Creatinine (0.8-1.3) mg/dL Est Cr Clr Drug Dosing mL/min Estimated GFR (MDRD) (>60) Glucose (74-106) mg/dL POC Glucose 307 H 407 H* 289 H (74-106) mg/dL Calcium (8.5-10.1) mg/dL Triglycerides (15-150) mg/dL Cholesterol (0-200) mg/dL LDL Cholesterol Direct (0-100) mg/dL Result Diagrams: 08/01/20 05:10 08/01/20 05:00 Sepsis Event Note - Evaluation Sepsis Screening Result: No Definite Risk - Focused Exam Vital Signs: Vital Signs Temp Pulse Pulse Resp BP BP Pulse Ox 08/01/20 16:00 97 F 81 14 132/88 98 08/01/20 11:54 97.8 F 12 103/67 99 08/01/20 08:21 66 136/92 H 08/01/20 08:00 97.6 F 12 136/92 H 96 08/01/20 06:00 70 17 147/99 H 95 - Problem List & Annotations (1) Hyperosmolar hyperglycemic state (HHS) SNOMED Code(s): 649654414 Code(s): E11.00 - TYPE 2 DIAB W HYPROSM W/O NONKET HYPRGLY-HYPROS COMA ([facility]); E11.65 - TYPE 2 DIABETES MELLITUS WITH HYPERGLYCEMIA Status: Acute Current Visit: Yes (2) Dehydration SNOMED Code(s): 58721657 Code(s): E86.0 - DEHYDRATION Status: Acute Current Visit: Yes (3) Diabetes mellitus type II, uncontrolled SNOMED Code(s): 223757508, 110068286 Code(s): E11.65 - TYPE 2 DIABETES MELLITUS WITH HYPERGLYCEMIA Status: Acute Priority: High Current Visit: Yes Qualifiers: Glycemic state: with hyperglycemia Qualified Code(s): E11.65 - Type 2 diabetes mellitus with hyperglycemia (4) Chronic ulcer of left leg SNOMED Code(s): 54610712 Code(s): L97.929 - NON-PRS CHRONIC ULC UNSP PRT OF L LOW LEG W UNSP SEVERITY Status: Chronic Priority: Medium Current Visit: Yes Qualifiers: Non-pressure ulcer stage: limited to breakdown of skin Qualified Code(s): L97.921 - Non-pressure chronic ulcer of unspecified part of left lower leg limited to breakdown of skin (5) Cellulitis and abscess of left leg SNOMED Code(s): 428527946 Code(s): L03.116 - CELLULITIS OF LEFT LOWER LIMB; L02.416 - CUTANEOUS ABSCESS OF LEFT LOWER LIMB Status: Acute Current Visit: Yes - Problem List Review Problem List Initiated/Reviewed/Updated: Yes - My Orders Last 24 Hours: My Active Orders 07/31/20 17:00 Magnesium Oxide 400 mg PO QPM Rivaroxaban [Xarelto] 20 mg PO QPM Rosuvastatin [Crestor] 40 mg PO QPM 07/31/20 20:57 Labetalol [Normodyne] 10 mg IVPUSH Q4H PRN 07/31/20 21:00 Famotidine [Pepcid] 40 mg PO BEDTIME Furosemide [Lasix] 20 mg PO DAILY 08/01/20 08:00 Insulin Lispro [HumaLOG] See Protocol SUBCUT TIDMEALS 08/01/20 08:35 Vital Signs [RC] Q4H 08/01/20 11:07 Transfer Patient (Change bed) [ADT] Routine 08/01/20 21:00 Insulin Glarg,Human.Rec.Analog [LantUS Solostar] 45 units SUBCUT BEDTIME - Plan Plan:: Hyperosmolar hyperglycemic state-resolved -He is successfully out of this state and we will return to usual glucose management Uncontrolled diabetes type 2 -Pending A1c -He is continuing to have blood sugars from 300-400 because despite having a diabetic diet he has been drinking chocolate milk and soda. I do want to adjust for this as this is likely the way he eats at home or he may eat at home worse. 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 -On ceftriaxone IV Dehydration-resolved -We will continue to encourage fluids, the patient is drinking copious amounts of fluids Essential hypertension -His blood pressures were elevated into the 190s/100 yesterday therefore furosemide home dose was started and IV labetalol was given with parameters to give every 4 hours for a systolic blood pressure greater than 180 -carvedilol 25 mg twice a day, spironolactone 25 mg daily -We are getting elevated blood pressures so furosemide was restarted. He also has labetalol as needed for systolic blood pressures greater than 180 and diastolic blood pressures greater than 100 and a diastolic pressure greater then 100, this was given twice overnight. This has not been given today during the day. It will still be available as needed -Continue home Rivaroxaban GERD -home famotidine CODE STATUS: Full code VTE prophylaxis: Will be on home rivaroxaban GI prophylaxis: Will be on home famotidine Plan: I have convinced him to stay at least 1 more day to get better controls over his blood sugars. Does not seem to understand the long-term ramifications of chronically elevated blood sugars. I did explain to him that over time this can lead to peripheral neuropathy, blindness, gastroparesis, among other things. His 2 sons were at bedside with him and were told to keep him from drinking soda. I have placed an order for him to be transferred from the ICU to the floors as he no longer requires ICU care. Disposition: Will most likely go home with self-care after his stay Rosibel Watkins, DO
[2020-08-01] MEDS ORDERED: Insulin Glargine,Human Rec. Analog 100 Units/ML 3 ML Pen SUBCUT SCH ×2 (21:00)
[2020-08-01] MEDS: Famotidine 20 MG Tab PO SCH (21:27)
[2020-08-02] MEDS: cefTRIAXone 2 GM in Sodium Chloride 0.9% 50 ML IV SCH (00:55)
[2020-08-02] MEDS: Acetaminophen 500 MG Tab PO PRN (01:50)
[2020-08-02] MEDS: Spironolactone 25 MG Tab PO SCH (08:24)
[2020-08-02] MEDS: Carvedilol 12.5 MG Tab PO SCH (08:24)
[2020-08-02] MEDS: Furosemide 20 MG Tab PO SCH (08:24)
[2020-08-02] MEDS: Insulin Lispro 100 Unit/ML 3 ML KwikPen SUBCUT SCH ×2 (08:24→12:10)
--- NOTE | 2020-08-02 13:48 | PCM.DCSUM1 ---
Discharge Summary - Hospital Course Free Text/Narrative:: Mr. Philippe is a 45-year-old white male with uncontrolled diabetes and a significant heart history who presented in a hyperosmolar hyperglycemic state. He also had several days of increasing pain and a chronic left leg ulcer that had increasing erythema. His blood sugars on arrival were over 800. He regularly has blood sugars that are too high for his device at home to read. In the ED he was given fluid bolus, given bolus insulin, and brought to the ICU and started on an insulin drip. He was also started on IV antibiotics for his leg. By the next day he was feeling significantly better and he no longer had pain in his left leg near the ulcer. We were only able to get his blood sugars down into the 200s. He normally sits above this stating that his usual blood sugars are in the 300s. We did significantly increase his basal insulin. As he was feeling so good he had been wanting to go home since the day after admission, therefore, a plan was made with him to have him go home with an increased basal insulin dose with close follow-up the day after discharge with his primary care physician Dr. Garner for better glucose control as his diet is poor and would greatly affect the insulin needs. Diagnosis: Stroke: No Modified [place] Scale: No Symptoms at All Modified [place] Scale Score: 0 - Discharge Data Discharge Date: 08/02/20 Discharge Disposition: Home, Self-Care 01 Condition: Good - Referral to Home Health Primary Care Physician: Emmanuel Jewell NP - Discharge Diagnosis/Problem(s) (1) Hyperosmolar hyperglycemic state (HHS) SNOMED Code(s): 593071625 ICD Code: E11.00 - TYPE 2 DIAB W HYPROSM W/O NONKET HYPRGLY-HYPROS [facility] E11.65 - TYPE 2 DIABETES MELLITUS WITH HYPERGLYCEMIA Status: Acute Current Visit: Yes (2) Dehydration SNOMED Code(s): 75512365 ICD Code: E86.0 - DEHYDRATION Status: Acute Current Visit: Yes (3) Diabetes mellitus type II, uncontrolled SNOMED Code(s): 479542400, 678534403 ICD Code: E11.65 - TYPE 2 DIABETES MELLITUS WITH HYPERGLYCEMIA Status: Acute Priority: High Current Visit: Yes Qualifiers: Glycemic state: with hyperglycemia Qualified Code(s): E11.65 - Type 2 diabetes mellitus with hyperglycemia (4) Chronic ulcer of left leg SNOMED Code(s): 80966761 ICD Code: L97.929 - NON-PRS CHRONIC ULC UNSP PRT OF L LOW LEG W UNSP SEVERITY Status: Chronic Priority: Medium Current Visit: Yes Qualifiers: Non-pressure ulcer stage: limited to breakdown of skin Qualified Code(s): L97.921 - Non-pressure chronic ulcer of unspecified part of left lower leg limited to breakdown of skin (5) Cellulitis of left leg SNOMED Code(s): 977034135 ICD Code: L03.116 - CELLULITIS OF LEFT LOWER LIMB Status: Acute Current Visit: Yes - Patient Instructions Diet: Heart Healthy Diet, Diabetic Diet Driving: May Drive Today Showering/Bathing: May Shower Showering/Bathing, Other: Wash leg Ulcer twice daily with hibiclens wash Wound/Incision Care: Keep Operative Site/Wound Site Clean and Dry Notify Provider of: Fever, Increased Pain, Swelling and Redness - Discharge Plan Prescriptions/Med Rec: Insulin Lispro [Humalog] 10 unit SUBCUT TIDMEALS #900 units cephALEXin [Keflex] 500 mg PO Q8H #14 cap Insulin Glarg,Human.Rec.Analog [Lantus Solostar] 50 units SUBCUT BEDTIME #1500 units Home Medications: Home Meds Furosemide [Lasix] 20 mg PO WITHLUNCH 03/17/20 [History] Rosuvastatin [Crestor] 40 mg PO WITHLUNCH 03/17/20 [History] Spironolactone [Aldactone] 25 mg PO DAILY 03/17/20 [History] Magnesium Oxide [Magnesium] 400 mg PO WITHLUNCH 05/04/20 [History] Famotidine 40 mg PO BEDTIME 07/30/20 [History] Rivaroxaban [Xarelto] 20 mg PO WITHLUNCH 07/30/20 [History] carvediloL [Coreg] 25 mg PO BID 07/30/20 [History] Insulin Glarg,Human.Rec.Analog [Lantus Solostar] 50 units SUBCUT BEDTIME #1500 units 08/02/20 [Rx] Insulin Lispro [Humalog] 10 unit SUBCUT TIDMEALS #900 units 08/02/20 [Rx] cephALEXin [Keflex] 500 mg PO Q8H #14 cap 08/02/20 [Rx] Patient Handouts: Hyperglycemic Hyperosmolar State, Cellulitis, Adult, [id number]-[id number] Forms: ED Department Discharge Referrals: Julia Sosa, RN [Registered Nurse] - 08/03/20 3:30 am ([facility]. Arrive 15 minutes early for registration. ) Emmanuel Jewell NP [Primary Care Provider] - 08/06/20 1:00 pm ([facility]. Arrive 15 minutes early for registration) - Discharge Summary/Plan Comment DC Time >30 min.: Yes Discharge Summary/Plan Comment: He is to have appointment with Dr. Garner tomorrow regarding his blood sugars. He will need to continue to take antibiotics to complete a 5-day course, cephalexin was sent to his pharmacy. He was also advised to clean his ulcer twice a day with Hibiclens. He was advised that if his blood sugar was greater than what his meter could read to call his primary care physician for advice. He was also counseled to come back to the hospital if he was not feeling well and his blood sugars were greater than what his meter could read. He was warned that having blood sugars at the levels that he has that he could risk of blindness, loss of limb, gastroparesis, and due to DKA. - General Info Date of Service: 08/02/20 Admission Dx/Problem (Free Text: Admission Diagnosis/Problem Admission Diagnosis/Problem Hyperosmolar Hyperglycemic state, Cellulitis of the left leg Subjective Update: His blood sugars are in the 200s except when he drinks chocolate milk. There is no longer any erythema surrounding the chronic leg ulcer on the left leg. He is feeling very good and anxious to go home. Functional Status: Reports: Pain Controlled, Tolerating Diet, Ambulating, Urinating. Denies: New Symptoms - Review of Systems General: Reports: No Symptoms, Appetite. Denies: Fever, Weakness, Fatigue, Malaise, Chills HEENT: Reports: No Symptoms. Denies: Headaches, Visual Changes Pulmonary: Reports: No Symptoms. Denies: Shortness of Breath, Cough, Wheezing Cardiovascular: Reports: No Symptoms. Denies: Chest Pain, Palpitations, Edema Gastrointestinal: Reports: No Symptoms. Denies: Abdominal Pain, Constipation, Decreased Appetite, Diarrhea, Nausea, Vomiting Genitourinary: Reports: No Symptoms. Denies: Dysuria, Frequency, Urgency Musculoskeletal: Reports: No Symptoms. Denies: Leg Pain Skin: Reports: Other (Improvement in the pain of the left leg ulcer otherwise no symptoms) Neurological: Reports: No Symptoms. Denies: Confusion, Dizziness, Headache Psychiatric: Reports: Other (Polydipsia, polyphagia). Denies: Confusion - Patient Data Vitals - Most Recent: Last Vital Signs Temp 96.7 F L 08/02/20 11:48 Pulse 70 08/02/20 11:48 Resp 12 08/02/20 11:48 BP 129/81 08/02/20 11:48 Pulse Ox 100 08/02/20 11:48 Weight - Most Recent: 224 lb Lab Results - Last 24 hrs: Laboratory Results - last 24 hr 08/01/20 08/01/20 08/02/20 Range/Units 16:56 21:19 08:13 POC Glucose 289 H 373 H 271 H (74-106) mg/dL 08/02/20 08/02/20 Range/Units 11:47 13:24 POC Glucose 405 H* 264 H (74-106) mg/dL Med Orders - Current: Current Medications Acetaminophen (Acetaminophen 500 Mg Tab) 1,000 mg PO Q4H PRN PRN Reason: Pain Last Admin: 08/02/20 01:50 Dose: 1,000 mg Documented by: Carvedilol (Carvedilol 12.5 Mg Tab) 25 mg PO BID COUNT INCLUDES THE [facility] Last Admin: 08/02/20 08:24 Dose: 25 mg Documented by: Dextrose/Water (50% Dextrose In Water 50 Ml Syringe) 50 ml IVPUSH ASDIRECTED PRN PRN Reason: Hypoglycemia Famotidine (Famotidine 20 Mg Tab) 40 mg PO BEDTIME COUNT INCLUDES THE [facility] Last Admin: 08/01/20 21:27 Dose: 40 mg Documented by: Furosemide (Furosemide 20 Mg Tab) 20 mg PO DAILY COUNT INCLUDES THE [facility] Last Admin: 08/02/20 08:24 Dose: 20 mg Documented by: Glucagon (Glucagon,Human Recombinant 1 Mg Vial) 1 mg IM ASDIRECTED PRN PRN Reason: Hypoglycemia Ceftriaxone Sodium 2 gm/ (Sodium Chloride) 50 mls @ 100 mls/hr IV Q24H COUNT INCLUDES THE [facility] Last Admin: 08/02/20 00:55 Dose: 100 mls/hr Documented by: Insulin Glargine (Insulin Glargine,Human Rec. Analog 100 Units/Ml 3 Ml Pen) 45 units SUBCUT BEDTIME COUNT INCLUDES THE [facility] Last Admin: 08/01/20 21:23 Dose: 45 units Documented by: Insulin Human Lispro (Insulin Lispro 100 Unit/Ml 3 Ml Kwikpen) 0 unit SUBCUT TIDMEALS SPENCER; Protocol Last Admin: 08/02/20 12:10 Dose: 18 units Documented by: Labetalol HCl (Labetalol 20 Mg/4 Ml Syringe) 10 mg IVPUSH Q4H PRN; Protocol PRN Reason: Hypertension Last Admin: 07/31/20 21:21 Dose: 10 mg Documented by: Magnesium Oxide (Magnesium Oxide 400 Mg Tab) 400 mg PO QPM COUNT INCLUDES THE [facility] Last Admin: 08/01/20 16:58 Dose: 400 mg Documented by: Rivaroxaban (Rivaroxaban 10 Mg Tab) 20 mg PO QPM COUNT INCLUDES THE [facility] Last Admin: 08/01/20 16:58 Dose: 20 mg Documented by: Rosuvastatin Calcium (Rosuvastatin 10 Mg Tab) 40 mg PO QPM COUNT INCLUDES THE [facility] Last Admin: 08/01/20 16:58 Dose: 40 mg Documented by: Spironolactone (Spironolactone 25 Mg Tab) 25 mg PO DAILY COUNT INCLUDES THE [facility] Last Admin: 08/02/20 08:24 Dose: 25 mg Documented by: Discontinued Medications Calcium Carbonate/Glycine (Calcium Carbonate 500 Mg Tab.Chew) 1,000 mg PO ONETIME ONE Stop: 07/31/20 00:12 Last Admin: 07/31/20 00:44 Dose: 1,000 mg Documented by: Calcium Gluconate (Calcium Gluconate 10% 1 Gm/10 Ml Sdv) 1 gm IVPUSH ONETIME ONE Stop: 07/30/20 21:57 Last Admin: 07/30/20 22:26 Dose: 1 gm Documented by: Dextrose/Water (50% Dextrose In Water 50 Ml Syringe) 50 ml IVPUSH ASDIRECTED PRN PRN Reason: Hypoglycemia Dextrose/Water (50% Dextrose In Water 50 Ml Syringe) 50 ml IVPUSH ONETIME PRN PRN Reason: Blood Glucose Dextrose/Water (50% Dextrose In Water 50 Ml Syringe) 50 ml IVPUSH ASDIRECTED PRN PRN Reason: Hypoglycemia Glucagon (Glucagon,Human Recombinant 1 Mg Vial) 1 mg IM ASDIRECTED PRN PRN Reason: Hypoglycemia Glucagon (Glucagon,Human Recombinant 1 Mg Vial) 1 mg IM ASDIRECTED PRN PRN Reason: Hypoglycemia Sodium Chloride (Normal Saline) 1,000 mls @ 999 mls/hr IV ASDIRECTED SPENCER Last Admin: 07/30/20 22:07 Dose: 999 mls/hr Documented by: Insulin Regular in 0.9 % NACL (Myxredlin In Ns 100 Unit/100 Ml) 100 mls @ 9.67 mls/hr IV ASDIRECTED SPENCER; Protocol Last Infusion: 07/31/20 02:04 Dose: 0.01 units/kg/hr, 1 mls/hr Documented by: Magnesium Sulfate (Magnesium Sulfate In Water 2 Gm/50 Ml) 2 gm in 50 mls @ 25 mls/hr IV ONETIME PRN PRN Reason: low magnesium Potassium Chloride 20 meq/ (Premix) 100 mls @ 50 mls/hr IV Q2H PRN PRN Reason: Hypokalemia Last Admin: 07/31/20 02:27 Dose: 50 mls/hr Documented by: Potassium Chloride 20 meq/ (Premix) 100 mls @ 50 mls/hr IV ONETIME PRN PRN Reason: If serum between 3.5 and 3.9 Last Admin: 07/31/20 05:10 Dose: 50 mls/hr Documented by: Potassium Chloride 20 meq/ (Premix) 100 mls @ 50 mls/hr IV Q2H PRN PRN Reason: Hypokalemia Sodium Chloride (Normal Saline) 1,000 mls @ 100 mls/hr IV ASDIRECTED SPENCER Sodium Chloride (Normal Saline) 1,000 mls @ 0 mls/hr IV BOLUS ONE Stop: 07/31/20 00:11 Last Admin: 07/31/20 00:15 Dose: 999 mls/hr Documented by: Dextrose/Sodium Chloride (Dextrose 5%-1/2 Ns) 1,000 mls @ 100 mls/hr IV ASDIRECTED SPENCER Last Admin: 07/31/20 01:15 Dose: 100 mls/hr Documented by: Lidocaine HCl (Xylocaine-Mpf 1%) Confirm Administered Dose 2 mls @ as directed .ROUTE .STK-MED ONE Stop: 07/31/20 05:05 Last Admin: 07/31/20 05:12 Dose: Not Given Documented by: Sodium Chloride (Normal Saline) 1,000 mls @ 100 mls/hr IV ASDIRECTED SPENCER Last Admin: 07/31/20 17:35 Dose: 100 mls/hr Documented by: Insulin Glargine (Insulin Glargine,Human Rec. Analog 100 Units/Ml 3 Ml Pen) 30 units SUBCUT BEDTIME ONE Stop: 07/31/20 01:09 Last Admin: 07/31/20 01:26 Dose: 30 units Documented by: Insulin Glargine (Insulin Glargine,Human Rec. Analog 100 Units/Ml 3 Ml Pen) 35 units SUBCUT BEDTIME SPENCER Last Admin: 07/31/20 21:22 Dose: 35 units Documented by: Insulin Glargine (Insulin Glargine,Human Rec. Analog 100 Units/Ml 3 Ml Pen) 40 units SUBCUT BEDTIME SPENCER Insulin Human Lispro (Insulin Lispro 100 Unit/Ml 3 Ml Kwikpen) 0 unit SUBCUT ASDIRECTED COUNT INCLUDES THE [facility]; Protocol Last Admin: 07/31/20 08:02 Dose: 5 units Documented by: Insulin Human Lispro (Insulin Lispro 100 Unit/Ml 3 Ml Kwikpen) 0 unit SUBCUT TIDMEALS COUNT INCLUDES THE [facility]; Protocol Insulin Human Lispro (Insulin Lispro 100 Unit/Ml 3 Ml Kwikpen) 0 unit SUBCUT ASDIRECTED COUNT INCLUDES THE [facility]; Protocol Last Admin: 07/31/20 21:22 Dose: 5 units Documented by: Insulin Human Regular (Insulin Regular, Human 100 Units/Ml 3 Ml Vial) 15 unit IVPUSH ONETIME ONE Stop: 07/30/20 21:54 Last Admin: 07/30/20 22:03 Dose: 15 units Documented by: Lidocaine HCl (Lidocaine 1% 5 Ml Sdv) 2 ml INJECT ONETIME ONE Stop: 07/31/20 00:33 Last Admin: 07/31/20 00:43 Dose: 2 ml Documented by: Lidocaine HCl (Lidocaine 1% 5 Ml Sdv) Confirm Administered Dose 5 ml .ROUTE .STK-MED ONE Stop: 07/31/20 00:35 Last Admin: 07/31/20 00:44 Dose: Not Given Documented by: Lidocaine HCl (Lidocaine 1% 50 Ml Mdv) 2 ml INJECT ONETIME ONE Stop: 07/31/20 05:07 Last Admin: 07/31/20 05:13 Dose: 2 ml Documented by: Magnesium Oxide (Magnesium Oxide 400 Mg Tab) 400 mg PO WITHLUNCH SPENCER Rivaroxaban (Rivaroxaban 10 Mg Tab) 20 mg PO WITHLUNCH SPENCER Rosuvastatin Calcium (Rosuvastatin 10 Mg Tab) 40 mg PO WITHLUNCH COUNT INCLUDES THE [facility] Sodium Chloride (Sodium Chloride 0.9% 10 Ml Syringe) 10 ml FLUSH ASDIRECTED PRN PRN Reason: Keep Vein Open Last Admin: 07/30/20 22:13 Dose: 10 ml Documented by: - Exam General: Reports: Alert, Oriented, Cooperative, No Acute Distress HEENT: Reports: Pupils Equal, EOMI, Mucous Membr. Moist/[place] Lungs: Reports: Clear to Auscultation, Normal Respiratory Effort Cardiovascular: Reports: Regular Rate, Regular Rhythm, No Murmurs GI/Abdominal Exam: Normal Bowel Sounds, Soft, Non-Tender, No Distention Back Exam: Reports: Normal Inspection Extremities: Normal Inspection, Non-Tender, No Pedal Edema Skin: Reports: Warm, Dry, Intact Wound/Incisions: Reports: Healing Well, No Drainage. Denies: Erythema Neurological: Reports: No New Focal Deficit, Normal Gait Psy/Mental Status: Reports: Alert, Normal Affect, Normal Mood, Other (Polydipsia, polyphagia)
== END 2020-08-02 15:20 | disposition home or self-care (01) | DRG 638 ==
LOC: JP.ED 20:03 → JP.ICU 23:17
PROVIDERS: ADMIT Internal Medicine; ATTEND Internal Medicine
DX: E11.65 Type 2 diabetes mellitus with hyperglycemia (principal); L97.921 Non-pressure chronic ulcer of unspecified part of left lower leg limited to breakdown of skin; L03.116 Cellulitis of left lower limb; I50.9 Heart failure, unspecified; E78.00 Pure hypercholesterolemia, unspecified; I11.0 Hypertensive heart disease with heart failure; E66.9 Obesity, unspecified; D50.9 Iron deficiency anemia, unspecified; E86.0 Dehydration; Z79.01 Long term (current) use of anticoagulants; Z79.4 Long term (current) use of insulin; Z79.899 Other long term (current) drug therapy; Z88.5 Allergy status to narcotic agent; I25.2 Old myocardial infarction; Z86.711 Personal history of pulmonary embolism; Z90.89 Acquired absence of other organs; E11.622 Type 2 diabetes mellitus with other skin ulcer; Z68.35 Body mass index [BMI] 35.0-35.9, adult
CPT/HCPCS: 36415; 80048; 80053; 81001; 82009; 82465; 82803; 82947; 83036; 83605; 83718; 83721; 83735; 84100; 84478; 85025; 85027; 86140; 96374; 99284-25; 99285; A9270-GY; J0610; J0696; J1815; J1815-GY; J2001; J3480; J3490; J7030; J7042

== ENCOUNTER 2024-02-21 18:26 | Emergency (ER) | payer SELFPAY | END 2024-02-21 19:45 | disposition left against medical advice (07) | LOC: JP.ED 18:26 | DX: Z53.21 Procedure and treatment not carried out due to patient leaving prior to being seen by health care provider (principal) ==

== ENCOUNTER 2024-02-22 17:54 | Emergency (ER) | payer SELFPAY ==
[2024-02-22 18:21] LABS: BASOPHILS ABSOLUTE AUTO 0.05 K/uL (0.00-0.10); BASOPHILS PERCENT AUTO 0.8 % (0.1-1.3); EOSINOPHILS ABSOLUTE AUTO 0.05 K/uL (0.00-0.40); EOSINOPHILS PERCENT AUTO 0.8 % (0.0-5.4); HEMATOCRIT 45.9 % (38.4-49.7); HEMOGLOBIN 17.1 g/dL (12.9-16.9); IMMATURE GRAN ABSOLUTE AUTO 0.07 K/uL (0.00-0.23); IMMATURE GRAN PERCENT AUTO 1.1 % (0.0-0.7); LYMPHOCYTES PERCENT AUTO 21.2 % (11.4-47.7); MEAN CORPUSCULAR HEMOGLOBIN 28.8 pg (31.6-35.5); MEAN CORPUSCULAR HGB CONC 37.3 g/dL (31.6-35.5); MEAN CORPUSCULAR VOLUME 77.4 fL (81.4-99.0); MONOCYTES ABSOLUTE AUTO 0.74 K/uL (0.20-0.90); MONOCYTES PERCENT AUTO 11.2 % (3.3-12.6); NEUTROPHILS ABSOLUTE AUTO 4.28 K/uL (1.0-7.6); NEUTROPHILS PERCENT AUTO 64.9 % (40.0-78.1); PLATELET COUNT,PLT 180 K/uL (130-375); RED BLOOD CELL COUNT 5.93 M/uL (4.14-5.76); WHITE BLOOD CELL COUNT,WBC 6.6 K/uL (3.2-11.0)
[2024-02-22 18:47] LABS: LACTIC ACID 2.1 mmol/L (0.4-2.0)
[2024-02-22 18:50] LABS: A/G RATIO 0.9 (1.2-2.2); ALANINE AMINOTRANSFERASE,ALT 27 U/L (12-78); ALBUMIN 3.3 g/dL (3.4-5.0); ALKALINE PHOSPHATASE 184 U/L (46-116); ASPARTATE AMNIOTRANSFERASE,AST 22 U/L (15-37); BLOOD UREA NITROGEN,BUN 20 mg/dL (7-18); C-REACTIVE PROTEIN 5.78 mg/dL (<0.50); CALCIUM 9.5 mg/dL (8.5-10.1); CARBON DIOXIDE,CO2 22 mmol/L (21-32); CHLORIDE,CL 91 mmol/L (100-108); CREATININE 1.3 mg/dL (0.8-1.3); ESTIMATED GFR 68 mL/min (>60); POTASSIUM,K 3.6 mmol/L (3.6-5.2); PROTEIN TOTAL,TP 7.1 g/dL (6.4-8.2); SODIUM,NA 129 mmol/L (140-148)
[2024-02-22 18:53] LABS: ANION GAP 19.6 mmol/L (5.0-14.0); GLUCOSE RANDOM 511 mg/dL (74-106)
[2024-02-22 18:54] LABS: TROPONIN I HIGH SENSITIVITY 104.2 pg/mL (<=60.3)
[2024-02-22] MEDS ORDERED: Naloxone 0.4 MG/ML SDV IVPUSH PRN (19:13)
[2024-02-22] MEDS: Sodium Chloride 0.9% 1,000 ML IV SCH (19:14)
[2024-02-22] MEDS: Aspirin 81 MG Tab.Chew PO ONE (19:14)
[2024-02-22] MEDS: Morphine 4 MG/ML Syringe IVPUSH ONE (19:16)
[2024-02-22] MEDS: Sodium Chloride 0.9% 80 ML IV SCH (19:31)
[2024-02-22] MEDS: Iopamidol 755 Mg/ML 100 ML Bottle IV SCH (19:31)
[2024-02-22] MEDS: cefTRIAXone 2 GM in Sodium Chloride 0.9% 50 ML IV ONE (20:11)
[2024-02-22] MEDS: Doxycycline 100 MG Cap PO ONE (20:11)
[2024-02-22] MEDS ORDERED: Glucagon,Human Recombinant 1 MG Vial IM PRN (20:46)
[2024-02-22] MEDS ORDERED: 50% Dextrose in Water 50 ML Syringe IVPUSH PRN (20:46)
[2024-02-22] MEDS: Insulin Lispro 100 Units/ML 3 ML Vial SUBCUT ONE (21:14)
== END 2024-02-22 21:42 | disposition home or self-care (01) ==
LOC: JP.ED 17:54
DX: J18.9 Pneumonia, unspecified organism (principal); E11.9 Type 2 diabetes mellitus without complications; I25.10 Atherosclerotic heart disease of native coronary artery without angina pectoris; I11.0 Hypertensive heart disease with heart failure; I50.9 Heart failure, unspecified; E78.00 Pure hypercholesterolemia, unspecified; Z90.89 Acquired absence of other organs; Z88.5 Allergy status to narcotic agent; Z88.8 Allergy status to other drugs, medicaments and biological substances; Z79.01 Long term (current) use of anticoagulants; Z79.4 Long term (current) use of insulin; Z79.899 Other long term (current) drug therapy
CPT/HCPCS: 36415; 71045; 71275; 80053; 82009; 83605; 84484; 85025; 85379; 86140; 96361; 96365; 96375; 99285; A9270; J0696; J1815; J2270; J3490; J7030; Q9967; 93010; 99284

== ENCOUNTER 2024-02-29 15:04 | Inpatient (IN) | payer MEDICAID ==
[2024-02-29 15:15] LABS: BASOPHILS ABSOLUTE AUTO 0.07 K/uL (0.00-0.10); BASOPHILS PERCENT AUTO 0.8 % (0.1-1.3); EOSINOPHILS ABSOLUTE AUTO 0.13 K/uL (0.00-0.40); EOSINOPHILS PERCENT AUTO 1.5 % (0.0-5.4); HEMATOCRIT 45.4 % (38.4-49.7); HEMOGLOBIN 16.3 g/dL (12.9-16.9); IMMATURE GRAN ABSOLUTE AUTO 0.28 K/uL (0.00-0.23); IMMATURE GRAN PERCENT AUTO 3.3 % (0.0-0.7); LYMPHOCYTES ABSOLUTE AUTO 2.13 K/uL (0.8-3.3); LYMPHOCYTES PERCENT AUTO 25.1 % (11.4-47.7); MEAN CORPUSCULAR HEMOGLOBIN 28.8 pg (31.6-35.5); MEAN CORPUSCULAR HGB CONC 35.9 g/dL (31.6-35.5); MEAN CORPUSCULAR VOLUME 80.4 fL (81.4-99.0); MONOCYTES ABSOLUTE AUTO 0.58 K/uL (0.20-0.90); MONOCYTES PERCENT AUTO 6.8 % (3.3-12.6); NEUTROPHILS PERCENT AUTO 62.5 % (40.0-78.1); PLATELET COUNT,PLT 313 K/uL (130-375); RED BLOOD CELL COUNT 5.65 M/uL (4.14-5.76); WHITE BLOOD CELL COUNT,WBC 8.5 K/uL (3.2-11.0)
[2024-02-29] MEDS: HYDROmorphone 1 MG/ML Syringe IVPUSH ONE ×2 (15:16→17:27)
[2024-02-29 15:34] LABS: A/G RATIO 0.8 (1.2-2.2); ALANINE AMINOTRANSFERASE,ALT 45 U/L (12-78); ALBUMIN 3.2 g/dL (3.4-5.0); ALKALINE PHOSPHATASE 207 U/L (46-116); ASPARTATE AMNIOTRANSFERASE,AST 29 U/L (15-37); BILIRUBIN TOTAL 0.5 mg/dL (0.2-1.0); BLOOD UREA NITROGEN,BUN 20 mg/dL (7-18); CALCIUM 9.3 mg/dL (8.5-10.1); CARBON DIOXIDE,CO2 24 mmol/L (21-32); CHLORIDE,CL 92 mmol/L (100-108); CREATININE 1.7 mg/dL (0.8-1.3); EST CRCL DRUG DOSING (CG) 50.22 mL/min; ESTIMATED GFR 49 mL/min (>60); PROTEIN TOTAL,TP 7.3 g/dL (6.4-8.2); SODIUM,NA 131 mmol/L (140-148)
[2024-02-29 15:35] LABS: GLUCOSE RANDOM 690 mg/dL (74-106)
[2024-02-29] MEDS ORDERED: 50% Dextrose in Water 50 ML Syringe IVPUSH PRN ×2 (15:42→19:54)
[2024-02-29] MEDS ORDERED: Glucagon,Human Recombinant 1 MG Vial IM PRN ×2 (15:42→19:54)
[2024-02-29] MEDS: Insulin Lispro 100 Units/ML 3 ML Vial SUBCUT ONE (15:55)
[2024-02-29] MEDS: Sodium Chloride 0.9% 1,000 ML IV SCH ×2 (15:55→22:11)
[2024-02-29] MEDS ORDERED: Naloxone 0.4 MG/ML SDV IVPUSH PRN (19:03)
[2024-02-29] MEDS: fentaNYL 100 MCG/2 ML SDV IVPUSH ONE (19:29)
[2024-02-29 19:45] LABS: HEMOGLOBIN A1C > 14.0 % (4.5-6.2)
[2024-02-29] MEDS ORDERED: LORazepam 2 MG/ML SDV IV PRN (19:54)
[2024-02-29] MEDS ORDERED: Bisacodyl 5 MG Tab PO PRN (19:54)
[2024-02-29] MEDS ORDERED: Albuterol/Ipratropium 3.0-0.5 MG/3 ML Neb Soln NEB PRN (19:54)
[2024-02-29] MEDS ORDERED: Ondansetron 4 MG/2 ML SDV IV PRN (19:54)
[2024-02-29] MEDS ORDERED: Insulin Lispro 100 Unit/ML 3 ML KwikPen SUBCUT SCH (19:54)
[2024-02-29] MEDS ORDERED: Albuterol 0.083% 2.5 MG/3 ML Neb Soln NEB PRN (19:54)
[2024-02-29] MEDS: Sodium Chloride 0.9% 80 ML IV ONE (20:11)
[2024-02-29] MEDS: Sodium Chloride 0.9% 10 ML Syringe FLUSH ONE (20:11)
[2024-02-29] MEDS: Iopamidol 612 MG/ML 100 ML Bottle IV ONE (20:11)
[2024-02-29] MEDS: Amoxicillin/Clavulanate K 875-125 MG Tab PO SCH (20:25)
[2024-02-29] MEDS: Docusate Sodium 100 MG Cap PO SCH (20:25)
[2024-02-29] MEDS: Carvedilol 12.5 MG Tab PO SCH (20:25)
[2024-02-29] MEDS: Famotidine 20 MG Tab PO SCH (20:25)
[2024-02-29] MEDS: Insulin Glargine,Human Rec. Analog 100 Units/ML 3 ML Pen SUBCUT SCH (21:39)
[2024-02-29] MEDS: Insulin Lispro 100 Unit/ML 3 ML KwikPen SUBCUT SCH (21:39)
[2024-02-29] MEDS: oxyCODONE 5 MG Tab PO PRN (22:27)
[2024-02-29] MEDS: Ketorolac 15 MG/ML SDV IVPUSH PRN (22:28)
[2024-03-01 05:26] LABS: BASOPHILS ABSOLUTE AUTO 0.09 K/uL (0.00-0.10); BASOPHILS PERCENT AUTO 0.9 % (0.1-1.3); EOSINOPHILS PERCENT AUTO 2.1 % (0.0-5.4); HEMATOCRIT 40.7 % (38.4-49.7); HEMOGLOBIN 14.6 g/dL (12.9-16.9); IMMATURE GRAN ABSOLUTE AUTO 0.28 K/uL (0.00-0.23); IMMATURE GRAN PERCENT AUTO 2.9 % (0.0-0.7); LYMPHOCYTES ABSOLUTE AUTO 2.06 K/uL (0.8-3.3); LYMPHOCYTES PERCENT AUTO 21.5 % (11.4-47.7); MEAN CORPUSCULAR HEMOGLOBIN 28.5 pg (31.6-35.5); MEAN CORPUSCULAR HGB CONC 35.9 g/dL (31.6-35.5); MEAN CORPUSCULAR VOLUME 79.3 fL (81.4-99.0); MONOCYTES ABSOLUTE AUTO 0.86 K/uL (0.20-0.90); NEUTROPHILS ABSOLUTE AUTO 6.11 K/uL (1.0-7.6); NEUTROPHILS PERCENT AUTO 63.6 % (40.0-78.1); PLATELET COUNT,PLT 294 K/uL (130-375); RED BLOOD CELL COUNT 5.13 M/uL (4.14-5.76); WHITE BLOOD CELL COUNT,WBC 9.6 K/uL (3.2-11.0)
[2024-03-01 05:44] LABS: CALCIUM 8.4 mg/dL (8.5-10.1); EST CRCL DRUG DOSING (CG) 85.38 mL/min; POTASSIUM,K 3.6 mmol/L (3.6-5.2)
[2024-03-01 06:06] LABS: ANION GAP 11.6 mmol/L (5.0-14.0)
[2024-03-01] MEDS: Morphine 2 MG/ML SYRINGE IVPUSH PRN (08:41)
[2024-03-01] MEDS: Spironolactone 25 MG Tab PO SCH (08:50)
[2024-03-01] MEDS: Tamsulosin 0.4 MG Cap.ER PO SCH (08:52)
[2024-03-01] MEDS: Enoxaparin 40 MG/0.4 ML Syringe SUBCUT SCH (08:53)
[2024-03-01] MEDS ORDERED: Morphine 4 MG/ML Syringe IVPUSH PRN (09:45)
[2024-03-01] MEDS: Rosuvastatin 10 MG Tab PO SCH (12:03)
[2024-03-01] MEDS: Magnesium Oxide 400 MG Tab PO SCH (12:05)
[2024-03-01] MEDS: Furosemide 20 MG Tab PO SCH (12:05)
[2024-03-01] MEDS: Ketorolac 30 MG/ML SDV IVPUSH PRN (17:29)
[2024-03-03 05:28] LABS: ANION GAP 6.6 mmol/L (5.0-14.0); CALCIUM 8.9 mg/dL (8.5-10.1); CREATININE 1.2 mg/dL (0.8-1.3); EST CRCL DRUG DOSING (CG) 71.15 mL/min
[2024-03-03] MEDS: tiZANidine 2 MG Tab PO PRN (12:09)
[2024-03-03] MEDS: Diazepam 5 MG Tab PO PRN (21:17)
[2024-03-04] MEDS ORDERED: Sodium Chloride 0.9% 10 ML Syringe IV PRN (09:39)
[2024-03-04] MEDS: HYDROmorphone 1 MG/ML Syringe IVPUSH ONE (15:19)
[2024-03-04] MEDS: HYDROmorphone 1 MG/ML Syringe ONE (15:44)
== END 2024-03-04 18:34 | disposition home or self-care (01) | DRG 536 ==
LOC: JP.ED 15:04 → JP.MS 19:21
PROVIDERS: ADMIT Nurse Practitioner; ATTEND Hospitalist
DX: S32.402A Unspecified fracture of left acetabulum, initial encounter for closed fracture (principal); I42.0 Dilated cardiomyopathy; L97.921 Non-pressure chronic ulcer of unspecified part of left lower leg limited to breakdown of skin; I50.9 Heart failure, unspecified; E78.5 Hyperlipidemia, unspecified; I25.10 Atherosclerotic heart disease of native coronary artery without angina pectoris; E78.00 Pure hypercholesterolemia, unspecified; W19.XXXA Unspecified fall, initial encounter; I11.0 Hypertensive heart disease with heart failure; F17.210 Nicotine dependence, cigarettes, uncomplicated; E11.65 Type 2 diabetes mellitus with hyperglycemia; E11.622 Type 2 diabetes mellitus with other skin ulcer; Z86.711 Personal history of pulmonary embolism; Z79.01 Long term (current) use of anticoagulants; Z88.8 Allergy status to other drugs, medicaments and biological substances; Z79.899 Other long term (current) drug therapy; Z79.4 Long term (current) use of insulin; Z79.2 Long term (current) use of antibiotics; I25.2 Old myocardial infarction; Z90.89 Acquired absence of other organs; Z95.5 Presence of coronary angioplasty implant and graft
CPT/HCPCS: 36415; 71260; 72190; 72190-26; 72192; 72192-26; 73551-26-LT; 73551-LT; 74177; 76377; 80048; 80053; 82947; 83036; 85025; 96361; 96374; 96376; 97161-GP; 97165-GO; 97530-GP; 97535-GO; 99222; 99232; 99238; 99285; 99285-25; A9270-GY; J1171; J1650; J1815; J1815-GY; J1885; J2270; J3010; J7030; Q9967

== ENCOUNTER 2024-04-21 22:21 | Inpatient (IN) | payer MEDICAID ==
[2024-04-21 23:07] LABS: BASOPHILS ABSOLUTE AUTO 0.06 K/uL (0.00-0.10); BASOPHILS PERCENT AUTO 0.7 % (0.1-1.3); EOSINOPHILS ABSOLUTE AUTO 0.05 K/uL (0.00-0.40); EOSINOPHILS PERCENT AUTO 0.6 % (0.0-5.4); HEMATOCRIT 41.5 % (38.4-49.7); HEMOGLOBIN 14.6 g/dL (12.9-16.9); IMMATURE GRAN ABSOLUTE AUTO 0.09 K/uL (0.00-0.23); IMMATURE GRAN PERCENT AUTO 1.1 % (0.0-0.7); LYMPHOCYTES ABSOLUTE AUTO 1.71 K/uL (0.8-3.3); LYMPHOCYTES PERCENT AUTO 20.8 % (11.4-47.7); MEAN CORPUSCULAR HEMOGLOBIN 28.9 pg (31.6-35.5); MEAN CORPUSCULAR HGB CONC 35.2 g/dL (31.6-35.5); MONOCYTES ABSOLUTE AUTO 0.67 K/uL (0.20-0.90); MONOCYTES PERCENT AUTO 8.1 % (3.3-12.6); NEUTROPHILS ABSOLUTE AUTO 5.66 K/uL (1.0-7.6); NEUTROPHILS PERCENT AUTO 68.7 % (40.0-78.1); PLATELET COUNT,PLT 243 K/uL (130-375); RED BLOOD CELL COUNT 5.06 M/uL (4.14-5.76); WHITE BLOOD CELL COUNT,WBC 8.2 K/uL (3.2-11.0)
[2024-04-21] MEDS: Sodium Chloride 0.9% 1,000 ML IV SCH (23:08)
[2024-04-21] MEDS: Ketorolac 15 MG/ML SDV IVPUSH ONE (23:08)
[2024-04-21 23:25] LABS: A/G RATIO 0.9 (1.2-2.2); ALANINE AMINOTRANSFERASE,ALT 69 U/L (12-78); ALBUMIN 2.8 g/dL (3.4-5.0); ALKALINE PHOSPHATASE 309 U/L (46-116); ASPARTATE AMNIOTRANSFERASE,AST 50 U/L (15-37); BILIRUBIN TOTAL 1.1 mg/dL (0.2-1.0); BLOOD UREA NITROGEN,BUN 21 mg/dL (7-18); CALCIUM 9.1 mg/dL (8.5-10.1); CARBON DIOXIDE,CO2 21 mmol/L (21-32); CHLORIDE,CL 95 mmol/L (100-108); CREATININE 1.1 mg/dL (0.8-1.3); EST CRCL DRUG DOSING (CG) 77.62 mL/min; ESTIMATED GFR 83 mL/min (>60); PROTEIN TOTAL,TP 5.9 g/dL (6.4-8.2); SODIUM,NA 131 mmol/L (140-148)
[2024-04-21 23:27] LABS: GLUCOSE RANDOM 481 mg/dL (74-106)
[2024-04-21 23:28] LABS: TROPONIN I HIGH SENSITIVITY 90.3 pg/mL (<=60.3)
[2024-04-21] MEDS ORDERED: Glucagon,Human Recombinant 1 MG Vial IM PRN (23:41)
[2024-04-21] MEDS ORDERED: 50% Dextrose in Water 50 ML Syringe IVPUSH PRN (23:41)
[2024-04-21] MEDS: Insulin Regular, Human 100 Units/ML 10 ML Vial ONE (23:58)
[2024-04-21] MEDS: Aspirin 81 MG Tab.Chew ONE (23:58)
[2024-04-22] MEDS: Sodium Chloride 0.9% 1,000 ML IV SCH (00:04)
[2024-04-22] MEDS: Insulin Regular, Human 100 Units/ML 3 ML Vial SUBCUT ONE ×2 (00:10→02:12)
[2024-04-22] MEDS: Aspirin 81 MG Tab.EC PO ONE (00:10)
[2024-04-22] MEDS ORDERED: Glucagon,Human Recombinant 1 MG Vial IM PRN ×2 (01:17→04:27)
[2024-04-22] MEDS ORDERED: 50% Dextrose in Water 50 ML Syringe IVPUSH PRN (01:17)
[2024-04-22] MEDS: Insulin Regular, Human 100 Units/ML 10 ML Vial ONE (02:13)
[2024-04-22] MEDS: Furosemide 20 MG/2 ML VIAL IVPUSH ONE (02:14)
[2024-04-22] MEDS ORDERED: Polyethylene Glycol 3350 Powder 17 GM Packet PO PRN (04:49)
[2024-04-22] MEDS ORDERED: Sodium Chloride 0.9% 10 ML Syringe FLUSH PRN (04:49)
[2024-04-22] MEDS ORDERED: 50% Dextrose in Water 50 ML Syringe IV PRN (04:49)
[2024-04-22] MEDS ORDERED: Ondansetron 4 MG/2 ML SDV IV PRN (04:49)
[2024-04-22] MEDS ORDERED: Albuterol 0.083% 2.5 MG/3 ML Neb Soln NEB PRN (04:49)
[2024-04-22] MEDS ORDERED: Glucose Gel 15 GM in 37.5 GM Tube PO PRN (04:49)
[2024-04-22] MEDS: Insulin Glargine,Human Rec. Analog 100 Units/ML 3 ML Pen SUBCUT SCH (05:14)
[2024-04-22] MEDS: Enoxaparin 40 MG/0.4 ML Syringe SUBCUT SCH (05:14)
[2024-04-22 07:50] LABS: CREATININE 1.1 mg/dL (0.8-1.3); EST CRCL DRUG DOSING (CG) 77.62 mL/min; MAGNESIUM 1.6 mg/dL (1.8-2.4); POTASSIUM,K 3.5 mmol/L (3.6-5.2)
[2024-04-22 07:52] LABS: ANION GAP 13.5 mmol/L (5.0-14.0)
[2024-04-22 07:59] LABS: TROPONIN I HIGH SENSITIVITY 98.7 pg/mL (<=60.3)
[2024-04-22] MEDS: Potassium Chloride 20 MEQ Tab.ER PO ONE (08:16)
[2024-04-22] MEDS: Carvedilol 12.5 MG Tab PO SCH (08:17)
[2024-04-22] MEDS: Aspirin 81 MG Tab.Chew PO SCH (08:17)
[2024-04-22] MEDS: Magnesium Sulf/Wat 2 GM/50 mL 2 GM in Premix Bag 1 BAG IV SCH (08:17)
[2024-04-22] MEDS: Furosemide 40 MG/4 ML VIAL IVPUSH ONE ×2 (08:22→14:28)
[2024-04-22] MEDS: Tamsulosin 0.4 MG Cap.ER PO SCH (08:22)
[2024-04-22] MEDS: Insulin Lispro 100 Unit/ML 3 ML KwikPen SUBCUT SCH (08:23)
[2024-04-22] MEDS: Rosuvastatin 10 MG Tab PO SCH (11:42)
[2024-04-22] MEDS: Magnesium Oxide 400 MG Tab PO SCH (11:42)
[2024-04-22] MEDS: Famotidine 20 MG Tab PO SCH (20:55)
[2024-04-23 06:21] LABS: ANION GAP 9.9 mmol/L (5.0-14.0); CALCIUM 9.3 mg/dL (8.5-10.1); CREATININE 1.2 mg/dL (0.8-1.3); EST CRCL DRUG DOSING (CG) 70.97 mL/min
[2024-04-23 06:23] LABS: TROPONIN I HIGH SENSITIVITY 74.9 pg/mL (<=60.3)
[2024-04-23] MEDS: Furosemide 40 MG/4 ML VIAL IVPUSH ONE (08:01)
== END 2024-04-23 15:10 | disposition home or self-care (01) | DRG 638 ==
LOC: JP.ED 22:21 → JP.ICU 04-22 03:53
PROVIDERS: ADMIT Hospitalist; ATTEND Internal Medicine
DX: E11.65 Type 2 diabetes mellitus with hyperglycemia (principal); I42.9 Cardiomyopathy, unspecified; I11.0 Hypertensive heart disease with heart failure; I50.9 Heart failure, unspecified; E78.00 Pure hypercholesterolemia, unspecified; I25.10 Atherosclerotic heart disease of native coronary artery without angina pectoris; I25.2 Old myocardial infarction; F12.90 Cannabis use, unspecified, uncomplicated; E86.0 Dehydration; S32.402D Unspecified fracture of left acetabulum, subsequent encounter for fracture with routine healing; Z79.899 Other long term (current) drug therapy; Z88.8 Allergy status to other drugs, medicaments and biological substances; Z90.49 Acquired absence of other specified parts of digestive tract; Z87.891 Personal history of nicotine dependence; Z95.5 Presence of coronary angioplasty implant and graft; Z86.711 Personal history of pulmonary embolism; Z79.4 Long term (current) use of insulin
CPT/HCPCS: 36415; 71046; 71046-26; 72170; 72170-26; 80048; 80053; 82947; 83735; 83880; 84484; 85025; 87428-QW; 93005; 93010; 94640; 96361; 96374; 96375; 99222; 99238; 99285; 99285-25; A9270-GY; J1650; J1815; J1815-GY; J1885; J1940; J3475; J7030

== ENCOUNTER 2024-05-01 15:59 | Emergency (ER) | payer MEDICAID, OTHER | END 2024-05-01 16:47 | disposition home or self-care (01) | LOC: JP.ED 15:59 | DX: S81.802A Unspecified open wound, left lower leg, initial encounter (principal); I11.0 Hypertensive heart disease with heart failure; I50.9 Heart failure, unspecified; I25.10 Atherosclerotic heart disease of native coronary artery without angina pectoris; E78.00 Pure hypercholesterolemia, unspecified; Z79.899 Other long term (current) drug therapy; Z95.5 Presence of coronary angioplasty implant and graft; Z79.01 Long term (current) use of anticoagulants; Z88.5 Allergy status to narcotic agent; Z88.6 Allergy status to analgesic agent; X58.XXXA Exposure to other specified factors, initial encounter | CPT/HCPCS: 99283 ==

== ENCOUNTER 2024-05-23 21:43 | Inpatient (IN) | payer MEDICAID ==
[2024-05-23] MEDS ORDERED: Nitroglycerin 0.4 MG Tab.SL SL PRN (21:54)
[2024-05-23] MEDS: Aspirin 81 MG Tab.Chew PO ONE (22:05)
[2024-05-23] MEDS: Ondansetron 4 MG/2 ML SDV IVPUSH ONE (22:06)
[2024-05-23] MEDS: Morphine 4 MG/ML Syringe IVPUSH PRN (22:06)
[2024-05-23 22:10] LABS: BASOPHILS ABSOLUTE AUTO 0.06 K/uL (0.00-0.10); BASOPHILS PERCENT AUTO 0.6 % (0.1-1.3); EOSINOPHILS ABSOLUTE AUTO 0.05 K/uL (0.00-0.40); EOSINOPHILS PERCENT AUTO 0.5 % (0.0-5.4); HEMATOCRIT 46.5 % (38.4-49.7); HEMOGLOBIN 15.8 g/dL (12.9-16.9); IMMATURE GRAN ABSOLUTE AUTO 0.07 K/uL (0.00-0.23); IMMATURE GRAN PERCENT AUTO 0.7 % (0.0-0.7); LYMPHOCYTES ABSOLUTE AUTO 2.54 K/uL (0.8-3.3); LYMPHOCYTES PERCENT AUTO 24.6 % (11.4-47.7); MEAN CORPUSCULAR HEMOGLOBIN 28.5 pg (31.6-35.5); MEAN CORPUSCULAR VOLUME 83.9 fL (81.4-99.0); MONOCYTES ABSOLUTE AUTO 0.68 K/uL (0.20-0.90); MONOCYTES PERCENT AUTO 6.6 % (3.3-12.6); NEUTROPHILS ABSOLUTE AUTO 6.94 K/uL (1.0-7.6); PLATELET COUNT,PLT 236 K/uL (130-375); RED BLOOD CELL COUNT 5.54 M/uL (4.14-5.76); WHITE BLOOD CELL COUNT,WBC 10.3 K/uL (3.2-11.0)
[2024-05-23] MEDS: Adenosine 6 MG/2 ML SDV IVPUSH ONE ×2 (22:11→22:19)
[2024-05-23] MEDS: Sodium Chloride 0.9% 10 ML Syringe FLUSH PRN (22:23)
[2024-05-23] MEDS: Diltiazem 25 MG/5 ML SDV IVPUSH ONE ×2 (22:26→22:37)
[2024-05-23 22:40] LABS: A/G RATIO 0.9 (1.2-2.2); ALANINE AMINOTRANSFERASE,ALT 71 U/L (12-78); ALBUMIN 3.1 g/dL (3.4-5.0); ALKALINE PHOSPHATASE 334 U/L (46-116); ASPARTATE AMNIOTRANSFERASE,AST 48 U/L (15-37); BILIRUBIN TOTAL 1.1 mg/dL (0.2-1.0); BLOOD UREA NITROGEN,BUN 22 mg/dL (7-18); CALCIUM 9.5 mg/dL (8.5-10.1); CARBON DIOXIDE,CO2 27 mmol/L (21-32); CHLORIDE,CL 89 mmol/L (100-108); CREATININE 1.8 mg/dL (0.8-1.3); EST CRCL DRUG DOSING (CG) 47.43 mL/min; ESTIMATED GFR 46 mL/min (>60); PRO B-TYPE NATRIUR PEPT,BNPPRO 4871 pg/mL (5-125); PROTEIN TOTAL,TP 6.4 g/dL (6.4-8.2); SODIUM,NA 126 mmol/L (140-148)
[2024-05-23 22:41] LABS: GLUCOSE RANDOM 730 mg/dL (74-106); TROPONIN I HIGH SENSITIVITY 107.9 pg/mL (<=60.3)
[2024-05-23] MEDS ORDERED: 50% Dextrose in Water 50 ML Syringe IVPUSH PRN (22:45)
[2024-05-23] MEDS ORDERED: Glucagon,Human Recombinant 1 MG Vial IM PRN (22:45)
[2024-05-23 22:53] LABS: BASE EXCESS ARTERIAL -0.3 mm/L; BICARBONATE,ARTERIAL 22.1 mmol/L (22.0-26.0); CARBOXYHEMOGLOBIN 2.3 % (0.0-1.6); METHEMOGLOBIN 0.6 %; O2 SATURATION ARTERIAL 96.3 % (95.0-98.0); OXYHEMOGLOBIN 93.5 %; PCO2 ARTERIAL 31.5 mmHg (35.0-42.0); PO2 ARTERIAL 86.4 mmHg (75.0-100.0); TOTAL HEMOGLOBIN 15.5 g/dL (13.5-18.0)
[2024-05-23 23:18] LABS: APPEARANCE,URINE CLEAR (CLEAR); BILIRUBIN,URINE NEGATIVE (NEGATIVE); COLOR,URINE YELLOW (YELLOW); GLUCOSE,URINE 500 mg/dL (NEGATIVE); KETONES,URINE NEGATIVE (NEGATIVE); LEUKOCYTE ESTERASE,URINE NEGATIVE (NEGATIVE); NITRITE,URINE NEGATIVE (NEGATIVE); OCCULT BLOOD,URINE NEGATIVE (NEGATIVE); PH,URINE 6.5 (5.0-8.0); PROTEIN,URINE 100 mg/dL (NEGATIVE); UROBILINOGEN,URINE 0.2 EU/dL (0.2-1.0)
[2024-05-23 23:24] LABS: AMORPHOUS SEDIMENT,URINE NOT SEEN; BACTERIA,URINE FEW; EPITHELIAL CELLS,URINE NOT SEEN; MUCUS,URINE NOT SEEN; RBC,URINE 0-5 (0-5); WBC,URINE 0-5 (0-5)
[2024-05-23 23:25] LABS: AMPHETAMINES SCREEN, URINE NEGATIVE (NEGATIVE); BARBITURATE SCREEN,URINE NEGATIVE (NEGATIVE); BENZODIAZEPINES SCREEN,URINE NEGATIVE (NEGATIVE); METHADONE SCREEN, URINE NEGATIVE (NEGATIVE); METHAMPHETAMINES SCREEN, URINE PRESUMPTIVE POSITIVE (NEGATIVE); OXYCODONE SCREEN,URINE NEGATIVE (NEGATIVE); PROPOXYPHENE SCREEN,URINE NEGATIVE (NEGATIVE); THC SCREEN,URINE 50 NG/ML NEGATIVE (NEGATIVE)
[2024-05-23] MEDS: Metoprolol Tartrate 5 MG/5 ML SDV IVPUSH ONE (23:26)
[2024-05-23 23:46] LABS: LACTIC ACID 2.7 mmol/L (0.7-2.1)
[2024-05-24] MEDS: Insulin Regular in 0.9 % NACL 100 ML IV SCH (00:11)
[2024-05-24] MEDS: Piperacillin/Tazobactam 4.5 GM in Sodium Chloride 0.9% 100 ML IV ONE (00:50)
[2024-05-24] MEDS: Ondansetron 4 MG/2 ML SDV IVPUSH ONE (00:51)
[2024-05-24] MEDS ORDERED: Sodium Chloride 0.9% 500 ML IV SCH ×2 (02:15→09:45)
[2024-05-24] MEDS: Metoprolol Tartrate 25 MG Tab PO ONE (03:24)
[2024-05-24] MEDS ORDERED: Glucagon,Human Recombinant 1 MG Vial IM PRN (03:34)
[2024-05-24] MEDS ORDERED: 50% Dextrose in Water 50 ML Syringe IVPUSH PRN (03:34)
[2024-05-24] MEDS ORDERED: Melatonin 3 MG Tab PO PRN (04:10)
[2024-05-24] MEDS ORDERED: Acetaminophen 325 MG Tab PO PRN (04:10)
[2024-05-24] MEDS ORDERED: Sennosides/Docusate Sodium 50-8.6 MG Tab PO PRN (04:10)
[2024-05-24] MEDS: Pantoprazole 40 MG Vial IV SCH (04:24)
[2024-05-24] MEDS: Insulin Lispro 100 Unit/ML 3 ML KwikPen SUBCUT STA (04:31)
[2024-05-24] MEDS: LORazepam 2 MG/ML SDV IVPUSH PRN (04:32)
[2024-05-24] MEDS: Sodium Chloride 0.9% 1,000 ML IV SCH ×3 (04:52→19:57)
[2024-05-24] MEDS: Piperacillin/Tazobactam 4.5 GM in Sodium Chloride 0.9% 100 ML IV SCH (04:53)
[2024-05-24 05:51] LABS: HEMATOCRIT 42.3 % (38.4-49.7); HEMOGLOBIN 14.8 g/dL (12.9-16.9); MEAN CORPUSCULAR VOLUME 82.8 fL (81.4-99.0); RED BLOOD CELL COUNT 5.11 M/uL (4.14-5.76); WHITE BLOOD CELL COUNT,WBC 9.6 K/uL (3.2-11.0)
[2024-05-24 06:11] LABS: CALCIUM 8.9 mg/dL (8.5-10.1); CREATININE 1.5 mg/dL (0.8-1.3); EST CRCL DRUG DOSING (CG) 56.92 mL/min; POTASSIUM,K 4.6 mmol/L (3.6-5.2)
[2024-05-24 06:12] LABS: ANION GAP 14.6 mmol/L (5.0-14.0)
[2024-05-24] MEDS ORDERED: Ondansetron 4 MG Tab.DIS PO PRN (07:00)
[2024-05-24] MEDS ORDERED: Enoxaparin 40 MG/0.4 ML Syringe SUBCUT SCH (09:00)
[2024-05-24] MEDS: Metoprolol Tartrate 25 MG Tab PO SCH (09:04)
[2024-05-24] MEDS: Lactobacillus Rhamnosus GG (Probiotic) Cap PO SCH (09:05)
[2024-05-24] MEDS: Insulin Lispro 100 Unit/ML 3 ML KwikPen SUBCUT ONE (09:05)
[2024-05-24] MEDS: Morphine 2 MG/ML SYRINGE IVPUSH PRN (11:31)
[2024-05-24] MEDS: Insulin Lispro 100 Unit/ML 3 ML KwikPen SUBCUT SCH (11:33)
[2024-05-24] MEDS: Ondansetron 4 MG/2 ML SDV IV PRN (11:36)
[2024-05-24] MEDS: Piperacillin/Tazobactam/Dext 4.5 GM in Premix Bag 1 BAG IV SCH (13:08)
[2024-05-24] MEDS: Diltiazem IR 30 MG Tab PO SCH (13:09)
[2024-05-24] MEDS: Lactated Ringers 500 ML IV SCH ×2 (17:10→20:05)
[2024-05-24] MEDS: Norepinephrine Bit/D5W Premix 4 MG in Premix Bag 1 BAG IV SCH (17:11)
[2024-05-24] MEDS: Ketorolac 15 MG/ML SDV IVPUSH SCH (18:33)
[2024-05-24] MEDS: Pantoprazole 40 MG Vial IVPUSH SCH (21:02)
[2024-05-24] MEDS: Enoxaparin 40 MG/0.4 ML Syringe SUBCUT SCH (21:02)
[2024-05-25] MEDS ORDERED: Vasopressin 100 UNITS in Dextrose 5% in Water 245 ML IV SCH (01:00)
[2024-05-25] MEDS ORDERED: Dextrose 5%-0.9% NaCl 1,000 ML IV SCH (01:15)
[2024-05-25] MEDS ORDERED: Lactated Ringers 500 ML IV SCH (01:15)
[2024-05-25] MEDS: Hydrocortisone Sodium Succinate 100 MG/2 ML SDV ONE (01:21)
[2024-05-25] MEDS: Vasopressin 20 Units/1 ML MDV ONE (01:21)
[2024-05-25] MEDS: Dextrose 5% in Water 250 ML ONE (01:22)
[2024-05-25] MEDS: Hydrocortisone Sodium Succinate 100 MG/2 ML SDV IVPUSH ONE (01:22)
[2024-05-25] MEDS: Vasopressin 100 UNITS in Dextrose 5% in Water 245 ML IV SCH (01:31)
[2024-05-25] MEDS: EPINEPHrine 1:10,000 1 MG/10 ML Syringe IV ONE ×4 (02:03→02:12)
[2024-05-25] MEDS ORDERED: Pantoprazole 40 MG Tab.CR PO SCH (07:30)
== END 2024-05-25 02:15 | disposition expired | DRG 871 ==
LOC: JP.ED 21:43 → JP.ICU 05-24 03:19
PROVIDERS: ADMIT Registered Nurse; ATTEND Internal Medicine
PROC: 4A033R1 Measurement of Arterial Saturation, Peripheral, Percutaneous Approach (ICD-10-PCS; principal; 2024-05-23)
PROC: 3E03329 Introduction of Other Anti-infective into Peripheral Vein, Percutaneous Approach (ICD-10-PCS; 2024-05-24)
PROC: 3E033XZ Introduction of Vasopressor into Peripheral Vein, Percutaneous Approach (ICD-10-PCS; 2024-05-25)
PROC: 5A12012 Performance of Cardiac Output, Single, Manual (ICD-10-PCS; 2024-05-25)
DX: A41.9 Sepsis, unspecified organism (principal); R65.21 Severe sepsis with septic shock; K81.0 Acute cholecystitis; N17.9 Acute kidney failure, unspecified; I48.92 Unspecified atrial flutter; L97.929 Non-pressure chronic ulcer of unspecified part of left lower leg with unspecified severity; F15.10 Other stimulant abuse, uncomplicated; E11.65 Type 2 diabetes mellitus with hyperglycemia; I25.10 Atherosclerotic heart disease of native coronary artery without angina pectoris; I50.9 Heart failure, unspecified; I11.0 Hypertensive heart disease with heart failure; F17.210 Nicotine dependence, cigarettes, uncomplicated; R79.89 Other specified abnormal findings of blood chemistry; E88.09 Other disorders of plasma-protein metabolism, not elsewhere classified; E11.622 Type 2 diabetes mellitus with other skin ulcer; I25.2 Old myocardial infarction; Z86.711 Personal history of pulmonary embolism; Z87.81 Personal history of (healed) traumatic fracture; Z86.718 Personal history of other venous thrombosis and embolism; Z88.6 Allergy status to analgesic agent; Z88.5 Allergy status to narcotic agent; Z79.4 Long term (current) use of insulin; Z79.02 Long term (current) use of antithrombotics/antiplatelets; Z79.899 Other long term (current) drug therapy; Z79.01 Long term (current) use of anticoagulants; Z90.89 Acquired absence of other organs; Z95.5 Presence of coronary angioplasty implant and graft
CPT/HCPCS: 36415; 36600; 71045; 71045-26; 74176; 80048; 80053; 80305-QW; 81001; 82009; 82803; 82947; 83605; 83690; 83880; 84484; 85025; 85027; 87040; 93005; 93010; 96365; 96375; 96376; 99223; 99233; 99238; 99285; 99285-25; A9270-GY; J0153; J0171; J1650; J1720; J1815; J1885; J2060; J2270; J2405; J2470; J2543; J2598; J3490; J7030; J7060; J7120